=== PATIENT | female | born 1955 | race Caucasian/White ===

== ENCOUNTER 2017-01-13 11:21 | Emergency (ER) | payer BC, MEDICAID ==
[2017-01-13 11:38] VITALS: BP 135/68; PULSE 76; TEMP 97; O2SAT 97
[2017-01-13 11:39] VITALS: BMI 21.7
[2017-01-13] MEDS ORDERED: Sodium Chloride 0.9% 1,000 ML IV STA (12:15)
[2017-01-13] MEDS ORDERED: Insulin Regular 100 units/ml IV STA (12:15)
[2017-01-13] MEDS ORDERED: Insulin Regular 100 units/ml ONE (12:58)
[2017-01-13 13:03] LABS: VENOUS BLOOD GAS BASE EXCESS 2.8 mmol/L (0.0-2.0); VENOUS BLOOD GAS PCO2 47 mmHg (40-60); VENOUS BLOOD PH 7.39 (7.32-7.43)
[2017-01-13 13:11] LABS: BASO # 0.1 K/uL (0.0-0.2); BASO % 0.7 % (0.0-2.0); EOS # 0.2 K/uL (0.0-0.7); EOS % 2.7 % (0.0-4.0); HEMATOCRIT 35.7 % (34.0-47.0); LYMPH # 2.4 K/uL (1.0-4.3); MEAN CELL VOLUME 90.8 fl (81.0-99.0); MEAN CORPUSCULAR HEMOGLOBIN 30.7 pg (27.0-31.0); MEAN CORPUSCULAR HGB CONC 33.8 g/dL (33.0-37.0); MEAN PLATELET VOLUME 8.6 fl (7.2-11.7); MONO # 0.5 K/uL (0.0-0.8); NEUT # 4.8 K/uL (1.8-7.0); NEUT % 60.6 % (50.0-75.0); NRBC % 0.1 % (0.0-0.0); RED CELL DISTRIBUTION WIDTH 14.1 % (11.5-14.5)
[2017-01-13 13:22] LABS: GFR AFRICAN-AMERICAN > 60
[2017-01-13] MEDS ORDERED: TDAP Vaccine 0.5 mL Syr IM ONE (13:28)
--- NOTE | 2017-01-13 13:30 | ED PDOC ---
HPI: General Adult Time Seen by Provider: 01/13/17 12:01 Chief Complaint (Nursing): Abnormal Skin Integrity Chief Complaint (Provider): FOOT WOUND History Per: Patient (61 Y/O DIABETIC WITH RIGHT TOE WOUND NONHEALING X 1 WEEK. STATES SHE IS INSULIN DEPENDENT AND HAS NOTED ONGOING NUMBNESS. FOLLOWS WITH DR. SEGOVIA AND WAS STARTED ON KEFLEX 3 DAYS WITH NO IMPROVEMENT OF ULCER. DENIES ANY INJURY.) Past Medical History Reviewed: Historical Data, Nursing Documentation, Vital Signs Vital Signs: Last Vital Signs Temp 97 F L 01/13/17 11:37 Pulse 76 01/13/17 11:37 Resp BP 135/68 01/13/17 11:37 Pulse Ox 97 01/13/17 11:37 - Medical History PMH: Diabetes, HTN, Hypercholesterolemia - Surgical History Surgical History: Carotid Endarterectomy - Family History Family History: States: Unknown Family Hx - Immunization History Hx Tetanus Toxoid Vaccination: No Hx Influenza Vaccination: Yes Hx Pneumococcal Vaccination: No - Home Medications Home Medications: Ambulatory Orders Medication Instructions Recorded Aspirin 81 mg PO DAILY 08/01/13 Lipitor 20 mg PO HS 08/01/13 MetFORMIN 1,000 mg PO BID 08/01/13 novolog Mix 70/30 08/01/13 Non-Formulary 1 ea TOP DAILY #1 01/13/17 Silver Sulfadiazine 1% 50 gm 0.5 ea EXT BID #1 jar 01/13/17 [Silvadene 1% 50 gm] - Allergies Allergies/Adverse Reactions: Allergies Allergy/AdvReac Type Severity Reaction Status Date / Time No Known Allergies Allergy Verified 04/07/14 13:31 Review of Systems ROS Statement: Except As Marked, All Systems Reviewed And Found Negative Physical Exam - Reviewed Nursing Documentation Reviewed: Yes Vital Signs Reviewed: Yes - Physical Exam Appears: Positive for: Well, Non-toxic, No Acute Distress Head Exam: Positive for: ATRAUMATIC, NORMAL INSPECTION, NORMOCEPHALIC Skin: Positive for: Normal Color, Warm, DRY Eye Exam: Positive for: EOMI, Normal appearance, PERRL ENT: Positive for: Normal ENT Inspection Neck: Positive for: Normal, Painless ROM Cardiovascular/Chest: Positive for: Regular Rate, Rhythm Respiratory: Positive for: CNT, Normal Breath Sounds Gastrointestinal/Abdominal: Positive for: Normal Exam, Bowel Sounds, Soft Back: Positive for: Normal Inspection Extremity: Positive for: Normal ROM, Other (TOE RIGHT NONERYTHEMATOUS/MILD EDEMA NOTED (+) SUPERFICIAL ULCER NOTED. NO DISCHARGE.) Neurologic/Psych: Positive for: Alert, Oriented - Laboratory Results Result Diagrams: 01/13/17 12:55 - ECG O2 Sat by Pulse Oximetry: 97 - Progress ED Course And Treament: ACCUCHECK 332 NS 1 LITER WIDE OPEN INSULIN REGULAR 4 UNITS IV XRY OF FOOT: NAD SEEN BY PODIATRY. WOUND CARE/DEBRIDEMENT BY RESIDENT. WILL F/U WITH DR. LÓPEZ. ADVISED TO FINISH KEFLEX AND START SILVADENE APPLICATION TO WOUND. Disposition - Clinical Impression Clinical Impression: Open toe wound - Patient ED Disposition Is Patient to be Admitted: No - Disposition Referrals: Augusto López DPM [Staff Provider] - Disposition: Routine/Home Disposition Time: 13:30 Condition: FAIR Additional Instructions: CHELSEA AKHIL SONIA CON ANT [address] [facility] [phone] Prescriptions: Non-Formulary 1 ea TOP DAILY #1 Silver Sulfadiazine 1% 50 gm [Silvadene 1% 50 gm] 0.5 ea EXT BID #1 jar Instructions: Acute Wound Care (ED) Print Language: FRISIAN
[2017-01-13 13:39] LABS: CHLORIDE 103 mmol/L (98-107); POTASSIUM 3.8 MMOL/L (3.6-5.0); SODIUM 137 mmol/l (132-148)
[2017-01-13 13:41] LABS: AST/SGOT 25 U/L (14-36); BILIRUBIN,TOTAL 0.6 mg/dl (0.2-1.3); CARBON DIOXIDE 26 mmol/L (22-30)
[2017-01-13 13:42] LABS: ALB/GLOB RATIO 1.4 (1.0-2.1); ALKALINE PHOSPHATASE 66 U/L (38-126); ALT/SGPT 25 U/L (9-52); BLOOD UREA NITROGEN 19 mg/dl (7-17); CALCIUM 9.3 mg/dL (8.4-10.2); GLUCOSE,RANDOM 233 mg/dL (65-105); TOTAL PROTEIN 6.3 G/DL (6.3-8.2)
--- NOTE | 2017-01-13 15:27 | RAD ---
PROCEDURE: Radiographs of the right great toe. TECHNIQUE:: AP radiograph of the right foot, with oblique and lateral view of the right great toe. COMPARISON: None. FINDINGS: BONES: Normal. No fracture. JOINTS: Normal. SOFT TISSUES: Normal. OTHER FINDINGS: None. IMPRESSION: Normal right great toe radiographs.
--- NOTE | 2017-01-13 20:26 | CP.PCM.CON ---
History of Present Illness - History of Present Illness History of Present Illness: 61 year old female PMHx DM, HTN, hypercholesterolemia, asthma seen in ED at the request of podiatry consult. Patient states that she has had a blister on the bottom of her right great toe for the past week. Patient noticed fluid expressed from the blister on Thursday. Patient went to see her primary care doctor on Thursday who prescribed her Keflex for possible infection. Patient states that in addition to taking the pills by mouth, patient also breaks open the pills and applies the powder to her wound, as was commonly done from her [place] origin. Patient states the open wound hurts, especially when walking. Patient denies N/V/F/D/C/SOB/CP. No other pedal complaints at this time. PMH: DM, HTN, hypercholesterolemia, asthma PSH: carotid endarterectomy FH: unknown SH: unknown Meds: see meds list All: NKDA Review of Systems - Review of Systems All systems: reviewed and no additional remarkable complaints except (as per HPI ) Past Patient History - Past Social History Smoking Status: Former Smoker - CARDIAC Hx Hypercholesterolemia: Yes Hx Hypertension: Yes - ENDOCRINE/METABOLIC Hx Diabetes Mellitus Type 1: Yes - MUSCULOSKELETAL/RHEUMATOLOGICAL Hx Falls: Yes - PSYCHIATRIC Hx Substance Use: No - SURGICAL HISTORY Hx Carotid Endarterectomy: Yes - ANESTHESIA Hx Anesthesia: Yes Hx Anesthesia Reactions: No Hx Malignant Hyperthermia: No Meds Home Medications: Home Medication List Medication Instructions Recorded Confirmed Type Ibuprofen [Motrin] 600 mg PO Q8 PRN #15 tab 01/13/17 Rx Non-Formulary 1 ea TOP DAILY #1 01/13/17 Rx Silver Sulfadiazine 1% 50 gm 0.5 ea EXT BID #1 jar 01/13/17 Rx [Silvadene 1% 50 gm] Allergies/Adverse Reactions: Allergies Allergy/AdvReac Type Severity Reaction Status Date / Time No Known Allergies Allergy Verified 04/07/14 13:31 Physical Exam - Constitutional Appears: Well, Non-toxic, No Acute Distress - Extremities Exam Additional comments: RLE focused physical exam: Vasc: DP and PT pulses palpable 2/4. CFT <3 seconds to all digits x10. No edema noted. Neuro: Gross sensation intact. Derm: 1.8 x 2 cm superficial ulceration noted to plantar sulcus of 1st MPJ. Ulceration has a good granular base with mild erythema periwound. Mild serosanguinous drainage noted. No purulence, malodor, flucutance, probe to bone noted. No clinical signs of infection noted. Ortho: pain on palpation noted to ulceration. Pain upon ROM 1st MPJ - Neurological Exam Neurological exam: Alert, Oriented x3 - Psychiatric Exam Psychiatric exam: Normal Affect, Normal Mood Results - Vital Signs Recent Vital Signs: Last Vital Signs Temp 97 F L 01/13/17 11:37 Pulse 76 01/13/17 11:37 Resp BP 135/68 01/13/17 11:37 Pulse Ox 97 01/13/17 13:30 - Labs Result Diagrams: 01/13/17 12:55 01/13/17 12:55 Labs: Laboratory Results - last 24 hr 01/13/17 01/13/17 01/13/17 12:15 12:55 12:55 WBC 8.0 RBC 3.93 Hgb 12.1 Hct 35.7 MCV 90.8 MCH 30.7 MCHC 33.8 RDW 14.1 Plt Count 256 MPV 8.6 Neut % (Auto) 60.6 Lymph % (Auto) 30.0 Evangeline % (Auto) 6.0 Eos % (Auto) 2.7 Baso % (Auto) 0.7 Neut # 4.8 Lymph # 2.4 Evangeline # 0.5 Eos # 0.2 Baso # 0.1 pO2 35 VBG pH 7.39 VBG pCO2 47 VBG HCO3 26.3 VBG Total CO2 29.9 H VBG O2 Sat (Calc) 69.4 H VBG Base Excess 2.8 H VBG Potassium 3.8 Sodium 137.0 137 Chloride 103.0 103 Glucose 246 H Lactate 1.1 FiO2 21.0 Potassium 3.8 Carbon Dioxide 26 Anion Gap 11 BUN 19 H Creatinine 0.5 L Est GFR ( Amer) > 60 Est GFR (Non-Af Amer) > 60 Random Glucose 233 H Calcium 9.3 Total Bilirubin 0.6 AST 25 ALT 25 Alkaline Phosphatase 66 Total Protein 6.3 Albumin 3.7 Globulin 2.7 Albumin/Globulin Ratio 1.4 Venous Blood Potassium 3.8 Assessment & Plan - Assessment and Plan (Free Text) Assessment: 61 year old female PMH DM, HTN, hypercholesterolemia with superficial ulceration plantar right hallux Plan: Patient examined and evaluated at bedside Discussed with attending, Dr. Montenegro Chart, labs, vitals reviewed = afebrile, WBC WNL @ 8.0 R Foot XR reviewed = negative for OM, no ST emphysema noted Bacitracin applied to ulceration and dressed with DSD Advised patient to continue PO keflex from her PCP Recommend Silvadene cream. Apply thin later to affected area Patient is to follow up with Dr. Urbina in office next week Stable from podiatry standpoint Thank you for this consult, please reconsult podiatry again as needed - Date & Time Date: 01/13/17 Time: 13:00
== END 2017-01-13 14:34 | disposition home or self-care (01) ==
LOC: H.ER 11:21
DX: E11.621 Type 2 diabetes mellitus with foot ulcer (principal); E78.00 Pure hypercholesterolemia, unspecified; I10 Essential (primary) hypertension; Z79.4 Long term (current) use of insulin; Z79.82 Long term (current) use of aspirin
CPT/HCPCS: 73660; 80053; 82803; 82948; 85025; 96361; 96374; 96375; 99282; J7040

== ENCOUNTER 2017-05-28 17:19 | Emergency (ER) | payer OTHER, BC, MEDICAID ==
[2017-05-28 17:19] VITALS: BMI 21.7
[2017-05-28 17:27] VITALS: BP 146/71; PULSE 73; RESP 16; TEMP 98; O2SAT 100
--- NOTE | 2017-05-28 17:44 | ED PDOC ---
Arrival/HPI - General Chief Complaint: Hip Pain Time Seen by Provider: 05/28/17 17:27 Past Medical History - Cardiac Hx Hypertension: Yes - Endocrine/Metabolic Hx Diabetes Mellitus Type 1: Yes - Musculoskeletal/Rheumatological Hx Falls: Yes - Psychiatric Hx Substance Use: No - Surgical History Hx Carotid Endarterectomy: Yes - Anesthesia Hx Anesthesia: Yes Hx Anesthesia Reactions: No Hx Malignant Hyperthermia: No - Suicidal Assessment Feels Threatened In Home Enviroment: No Family/Social History Smoking Status: Former Smoker Hx Alcohol Use: No Hx Substance Use: No Allergies/Home Meds Allergies/Adverse Reactions: Allergies No Known Allergies Allergy (Verified 05/28/17 17:21) Home Medications: Home Meds Medication Instructions Recorded Confirmed Aspirin 81 mg PO DAILY 08/01/13 04/07/14 Lipitor 20 mg PO HS 08/01/13 04/07/14 MetFORMIN 1,000 mg PO BID 08/01/13 04/07/14 novolog Mix 70/30 08/01/13 04/07/14 Physical Exam Vital Signs Temp Pulse Resp BP Pulse Ox 05/28/17 17:21 98.0 F 73 16 146/71 100 Disposition/Present on Arrival - Present on Arrival History of DVT/PE: No History of Uncontrolled Diabetes: Yes Urinary Catheter: No History Surgical Site Infection Following: None - Disposition
--- NOTE | 2017-05-28 17:46 | ED PDOC ---
HPI: General Adult Time Seen by Provider: 05/28/17 17:27 Chief Complaint (Nursing): Hip Pain Chief Complaint (Provider): fall History Per: Patient Additional Complaint(s): 62-year-old female presents to emergency department with lower back pain, right hip pain, bilateral knee pain, neck pain and headache status post accidental fall. 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 Patient hit her forehead against the ground but denies loss of consciousness. She called ambulance and was brought here. The patient has not tried to walk or bear weight since time of injury. She denies any dizziness , vision changes or vomiting but does have mild nausea. Past Medical History Reviewed: Historical Data, Nursing Documentation, Vital Signs Vital Signs: Last Vital Signs Temp 98.0 F 05/28/17 17:21 Pulse 73 05/28/17 17:21 Resp 16 05/28/17 17:21 BP 146/71 05/28/17 17:21 Pulse Ox 100 05/28/17 17:46 - Medical History PMH: Diabetes, HTN, Hypercholesterolemia - Surgical History Other surgeries: right hip replacement - Family History Family History: States: No Known Family Hx - Living Arrangements Living Arrangements: With Family - Social History Current smoker - smoking cessation education provided: No Alcohol: None Drugs: Denies - Home Medications Home Medications: Ambulatory Orders Medication Instructions Recorded Aspirin 81 mg PO DAILY 08/01/13 Lipitor 20 mg PO HS 08/01/13 MetFORMIN 1,000 mg PO BID 08/01/13 novolog Mix 70/30 08/01/13 Ibuprofen [Motrin] 600 mg PO Q8 PRN #15 tab 01/13/17 Non-Formulary 1 ea TOP DAILY #1 01/13/17 Silver Sulfadiazine 1% 50 gm 0.5 ea EXT BID #1 jar 01/13/17 [Silvadene 1% 50 gm] Cyclobenzaprine [Cyclobenzaprine 10 mg PO TID PRN #20 tab 05/28/17 HCl] Naproxen [Naprosyn] 500 mg PO BID #20 tab 05/28/17 - Allergies Allergies/Adverse Reactions: Allergies Allergy/AdvReac Type Severity Reaction Status Date / Time No Known Allergies Allergy Verified 05/28/17 17:21 Review of Systems ROS Statement: Except As Marked, All Systems Reviewed And Found Negative Gastrointestinal: Positive for: Nausea Musculoskeletal: Positive for: Other (neck pain, back pain, bilateral knee pain , right hip pain s/p fall) Neurological: Positive for: Other (head injury with no LOC s/p fall). Negative for: Dizziness Physical Exam - Reviewed Nursing Documentation Reviewed: Yes Vital Signs Reviewed: Yes - Physical Exam Appears: Positive for: Well, Non-toxic, No Acute Distress Head Exam: Positive for: ATRAUMATIC, NORMAL INSPECTION, NORMOCEPHALIC Skin: Positive for: Normal Color. Negative for: Rash Eye Exam: Positive for: Normal appearance Neck: Positive for: Pain On Movement Of Neck (Tenderness to bilateral paraspinal regions with no midline tenderness or step-off) Cardiovascular/Chest: Positive for: Regular Rate, Rhythm, Chest Non Tender Respiratory: Positive for: Normal Breath Sounds Gastrointestinal/Abdominal: Positive for: Soft. Negative for: Tenderness, Distended, Guarding Back: Positive for: Vertebral Tenderness (Moderate tenderness across lower lumbar region, no step off) Extremity: Positive for: Other (Tenderness and swelling bilateral knees with full range of motion of same, mild tenderness lateral aspect of right hip with full range of motion of right lower extremity, no obvious bony deformity noted) Neurologic/Psych: Positive for: Alert, Oriented - ECG O2 Sat by Pulse Oximetry: 100 Pulse Ox Interpretation: Normal - Other Rad CT head X-Ray: Read By Radiologist X-Ray Interpretation: see below Pelvis and right hip x-rays X-Ray: Interpreted by Me, Viewed By Me X-Ray Interpretation: no fx, no dis, prothesis grossly aligned Bilateral knee x-rays X-Ray: Interpreted by Me, Viewed By Me X-Ray Interpretation: no fx, no dis LS Spine X-ray X-Ray: Interpreted by Me, Viewed By Me X-Ray Interpretation: no fx, no dis Cervical spine x-ray X-Ray: Interpreted by Me, Viewed By Me X-Ray Interpretation: no fx, no dis Medical Decision Making Medical Decision Makin-year-old female presents for evaluation status post fall. Plan: PO tramadol PO flexeril CT head X-rays both knees, pelvis, right hip, cervical and lumbar spines CT head: IMPRESSION: 1. There is subtle age-related diffuse cerebral and cerebellar volume loss and chronic microvascular ischemic disease. 2. No acute intracranial pathology. Patient feels better after medications administered. Patient is aware of all diagnostic testing results, all questions answered. Patient is noted to be ambulatory with steady gait in ED. Prescriptions provided for Naprosyn and Flexeril. Patient was referred to orthopedist for follow-up. Disposition - Clinical Impression Clinical Impression: Head injury, closed, without LOC, Cervical sprain, Back strain, Contusion, hip , Knee contusion, Accidental fall - Patient ED Disposition Is Patient to be Admitted: No Counseled Patient/Family Regarding: Studies Performed, Diagnosis, Need For Followup, Rx Given - Disposition Referrals: Rudy Khan III, MD [Staff Provider] - Disposition: Routine/Home Disposition Time: 19:31 Condition: STABLE Additional Instructions: Take prescription medications as directed as needed for pain. Follow up with primary doctor or with orthopedist in 2-3 days. Prescriptions: Cyclobenzaprine [Cyclobenzaprine HCl] 10 mg PO TID PRN #20 tab PRN Reason: Muscle Spasm Naproxen [Naprosyn] 500 mg PO BID #20 tab Instructions: Cervical Strain (GEN), Back Pain (ED), Hip Sprain (ED), Knee Sprain (ED), Contusion in Adults (ED), Head Injury (ED) Forms: [email or web address] (Portuguese), [email or web address] (Bengali), [facility] ED School /Work Excuse Print Language: CITIZEN OF [place]
--- NOTE | 2017-05-29 07:28 | CT ---
PROCEDURE: CT HEAD WITHOUT CONTRAST. HISTORY: trauma COMPARISON: None available. TECHNIQUE: Axial computed tomography images were obtained through the head/brain without intravenous contrast. Radiation dose: Total exam DLP = 796.62 mGy-cm. This CT exam was performed using one or more of the following dose reduction techniques: Automated exposure control, adjustment of the mA and/or kV according to patient size, and/or use of iterative reconstruction technique. FINDINGS: HEMORRHAGE: No intracranial hemorrhage. BRAIN: No mass effect or edema. Normal pool-white matter differentiation and density are appreciated throughout the cerebrum and cerebellum with the brainstem appearing unremarkable as well. There is no suspicious extra-axial fluid collection and the midline brain anatomy appears diffusely unremarkable. There is limited expansion of the ventricular sulcal and cisternal spaces compatible with marginal diffuse cerebral atrophy. VENTRICLES: Unremarkable. No hydrocephalus. CALVARIUM: No destructive bony lesion or displaced fracture identified including through the skullbase. PARANASAL SINUSES: Unremarkable as visualized. No significant inflammatory changes. MASTOID AIR CELLS: Unremarkable as visualized. No inflammatory changes. OTHER FINDINGS: None. IMPRESSION: Unremarkable unenhanced head CT. Minimal age related neuro degenerative changes are identified. Concordant preliminary report from [facility], 05/28/2017.
--- NOTE | 2017-05-29 11:27 | RAD ---
PROCEDURE: Cervical Spine Radiographs. HISTORY: Pain. COMPARISON: None. FINDINGS: BONES: No acute compression fractures no retropulsed fragments. Vertebral bodies exhibit normal stature. . There is mild straightening of the normal cervical lordosis. . . DISC SPACES: Multilevel degenerative spondylosis. Changes include varying degrees of disc space narrowing, endplate eburnation and anterolateral as well as posterior osteophyte formation former larger than latter. Mild hypertrophic uncovertebral facet joints. SOFT TISSUES: Normal. No prevertebral soft tissue swelling. OTHER FINDINGS: None. IMPRESSION: No at obvious evidence of acute displaced fracture nor dislocation. If symptoms persist consider follow-up CT scan or MRI. . Mild multilevel degenerative spondylosis as described. .
--- NOTE | 2017-05-29 11:28 | RAD ---
PROCEDURE: Bilateral Knee Radiographs. HISTORY: trauma COMPARISON: None. FINDINGS: BONES: Right Knee: Normal. No fracture. Left Knee: Normal. No fracture. JOINTS: Right Knee: Normal. No osteoarthritis. Left knee: Normal. No osteoarthritis. SOFT TISSUES: Right Knee: Normal. Left Knee: Normal. JOINT EFFUSION: Right Knee: None. Left Knee: Suspect trace suprapatellar joint effusion. OTHER FINDINGS: None. IMPRESSION: No evidence of acute displaced fracture nor dislocation. Suspect trace left-sided suprapatellar joint effusion.
--- NOTE | 2017-05-29 11:31 | RAD ---
PROCEDURE: Radiographs of the Lumbar Spine. HISTORY: trauma COMPARISON: No prior. FINDINGS: BONES: Minor chronic anterior stature loss T11 segment. Remaining vertebral bodies otherwise exhibit normal stature. DISC SPACES: Lumbar disc space heights are relatively maintained. Small marginal at anterior osteophyte formation seen at several levels and most pronounced of which is located at the T10-T11 and T11-T12 levels. Facet joints slightly hypertrophic the L5-S1 through the L3-L4 levels in decreasing order of severity OTHER FINDINGS: There is a large amount of stool seen throughout the colon consistent with fecal retention/ constipation. IMPRESSION: No evidence of acute compression fractures nor retropulsed fragments. Minor chronic anterior stature loss T11 segment. Minor multilevel degenerative spondylosis
--- NOTE | 2017-05-29 12:00 | RAD ---
PROCEDURE: Pelvis right hip dated 05/28/2017 HISTORY: Trauma COMPARISON: No prior studies available for comparison TECHNIQUE: Frontal view of the pelvis and frontal/ frogleg lateral views of the right hip performed FINDINGS: Current study reveals right-sided total hip replacement. The hardware appears no evidence with no evidence of dislocation. No evidence of loosening or infection. . Left femoral head is appropriately located within the left acetabulum. Pelvic ring appears intact. Probable calcified bilateral buttock injection granulomata IMPRESSION: Right total hip replacement which is intact and appropriately located. . No evidence of hardware failure. No evidence of acute displaced fracture nor dislocation
== END 2017-05-28 20:32 | disposition home or self-care (01) ==
LOC: H.ER 17:19
DX: S09.90XA Unspecified injury of head, initial encounter (principal); S13.4XXA Sprain of ligaments of cervical spine, initial encounter; S39.012A Strain of muscle, fascia and tendon of lower back, initial encounter; S70.01XA Contusion of right hip, initial encounter; S80.00XA Contusion of unspecified knee, initial encounter; W01.198A Fall on same level from slipping, tripping and stumbling with subsequent striking against other object, initial encounter; Y93.E5 Activity, floor mopping and cleaning; Y92.9 Unspecified place or not applicable; Y99.0 Civilian activity done for income or pay

== ENCOUNTER 2017-08-06 12:06 | Emergency (ER) | payer BC, MEDICAID ==
[2017-08-06 12:07] VITALS: BMI 21.7
[2017-08-06 12:38] VITALS: RESP 18
--- NOTE | 2017-08-06 12:50 | ED PDOC ---
Lower Extremity Pain/Injury Time Seen by Provider: 08/06/17 12:42 Chief Complaint (Nursing): Lower Extremity Problem/Injury Chief Complaint (Provider): toe infection History Per: Patient, Family (Patient's daughter at bedside speaks Macedonian and is translating for patient in Swedish) Additional Complaint(s): 62 year with history of diabetes presents with pain and swelling to left second toe. Patient injured foot last week and had small open wound distal aspect of toe. She was seen yesterday by primary doctor and started on Keflex and was told to come to emergency room for further evaluation. Patient denies fever or chills. She has mild pain to the affected area. PMD: Dr. Corey Past Medical History Reviewed: Historical Data, Nursing Documentation, Vital Signs Vital Signs: Last Vital Signs Temp 98.1 F 08/06/17 12:35 Pulse 94 H 08/06/17 12:35 Resp 18 08/06/17 12:35 BP 143/67 08/06/17 12:35 Pulse Ox 96 08/06/17 12:35 - Medical History PMH: Diabetes, HTN, Hypercholesterolemia - Surgical History Surgical History: Carotid Endarterectomy - Family History Family History: States: No Known Family Hx - Living Arrangements Living Arrangements: With Family - Social History Current smoker - smoking cessation education provided: No Alcohol: None Drugs: Denies - Home Medications Home Medications: Ambulatory Orders Medication Instructions Recorded Aspirin 81 mg PO DAILY 08/01/13 Lipitor 20 mg PO HS 08/01/13 MetFORMIN 1,000 mg PO BID 08/01/13 novolog Mix 70/30 08/01/13 Ibuprofen [Motrin] 600 mg PO Q8 PRN #15 tab 01/13/17 Non-Formulary 1 ea TOP DAILY #1 01/13/17 Silver Sulfadiazine 1% 50 gm 0.5 ea EXT BID #1 jar 01/13/17 [Silvadene 1% 50 gm] Cyclobenzaprine [Cyclobenzaprine 10 mg PO TID PRN #20 tab 05/28/17 HCl] Naproxen [Naprosyn] 500 mg PO BID #20 tab 05/28/17 Amoxicillin/Clavulanate [Augmentin 1 tab PO BID #14 tab 08/06/17 875 MG-125 MG] Povidone-Iodine [Betadine] 88.7 ml TP DAILY #1 bottle 08/06/17 Silver Sulfadiazine 1% 20 gm 1 ea TOP BID #1 tube 08/06/17 [Silvadene] - Allergies Allergies/Adverse Reactions: Allergies Allergy/AdvReac Type Severity Reaction Status Date / Time No Known Allergies Allergy Verified 05/28/17 17:21 Wells Criteria for PE - Wells Criteria for Pulmonary Embolism Clinical Signs and Symptoms of DVT: No P.E is #1 Diagnosis, or Equally Likely: No Heart Rate >100: No Immobilization at least 3 days;Surgery previous 4 weeks: No Previous, objectively diagnosed PE or DVT: No Hemoptysis: No Malignancy w/treatment within 6 months, or palliative: No Total Score: 0 Review of Systems ROS Statement: Except As Marked, All Systems Reviewed And Found Negative Constitutional: Negative for: Fever Musculoskeletal: Positive for: Other (left 2nd toe infection) Physical Exam - Reviewed Nursing Documentation Reviewed: Yes Vital Signs Reviewed: Yes - Physical Exam Appears: Positive for: Well, Non-toxic, No Acute Distress Skin: Negative for: Rash Eye Exam: Positive for: Normal appearance Cardiovascular/Chest: Positive for: Regular Rate, Rhythm Respiratory: Positive for: Normal Breath Sounds Extremity: Positive for: Other (superficial wound noted to distal aspect of left 2nd toe, diffuse swelling and erythema noted to same toe, decreased range of motion, normal cap refill) Neurologic/Psych: Positive for: Alert, Oriented - Laboratory Results Result Diagrams: 08/06/17 14:57 08/06/17 14:57 - ECG O2 Sat by Pulse Oximetry: 96 Pulse Ox Interpretation: Normal - Other Rad Left foot x-ray X-Ray: Interpreted by Me, Viewed By Me X-Ray Interpretation: no fx, no dis, STS 2nd digit Medical Decision Making Medical Decision Makin-year-old female with left second toe infection Fingerstick is 324 Plan: CBC CMP Wound culture Blood culture IVF 6 units insulin IV Podiatry consult - case was d/w Dr. Castillo, podiatry resident who states to start IV vanco and zosyn and he will come down and see patient in ED. 3:38 pm: Dr. Castillo at bedside. He states patient is stable for discharge with rx augmentin, betadine and silvadene cream. Resident apply dressing and instructed patient on how to change dressing daily at home. Patient was instructed to call podiatry clinic tomorrow to arrange for follow-up visit for next Thursday. Repeat glucose: 217 Disposition - Clinical Impression Clinical Impression: Toe infection, Cellulitis, toe - Patient ED Disposition Is Patient to be Admitted: No Counseled Patient/Family Regarding: Studies Performed, Diagnosis, Need For Followup, Rx Given - Disposition Referrals: Podiatry Clinic [Outside] Disposition: Routine/Home Disposition Time: 15:40 Condition: STABLE Additional Instructions: Change bandage at home daily, area with Betadine, apply Silvadene cream and be apply bandage. Take antibiotics as directed. Call podiatry clinic tomorrow to arrange for follow-up visit for next 08/14/17. Prescriptions: Amoxicillin/Clavulanate [Augmentin 875 MG-125 MG] 1 tab PO BID #14 tab Povidone-Iodine [Betadine] 88.7 ml TP DAILY #1 bottle Silver Sulfadiazine 1% 20 gm [Silvadene] 1 ea TOP BID #1 tube Instructions: Cellulitis (Skin Infection), Adult (DC), Wound Infection Forms: [employer] (Swedish) Print Language: ALBANIAN Results - Lab Results Lab Results: 08/06/17 08/06/17 08/06/17 14:57 14:57 12:43 WBC 10.7 RBC 3.83 Hgb 11.8 L Hct 35.7 MCV 93.3 D MCH 30.8 MCHC 33.0 RDW 13.7 Plt Count 261 MPV 9.2 Neut % (Auto) 67.9 Lymph % (Auto) 24.2 Trinity % (Auto) 5.6 Eos % (Auto) 1.7 Baso % (Auto) 0.6 Neut # (Auto) 7.2 H Lymph # (Auto) 2.6 Trinity # (Auto) 0.6 Eos # (Auto) 0.2 Baso # (Auto) 0.1 Sodium 138 Potassium 4.2 Chloride 98 Carbon Dioxide 26 Anion Gap 18 BUN 17 Creatinine 0.7 Est GFR ( Amer) > 60 Est GFR (Non-Af Amer) > 60 POC Glucose (mg/dL) 324 H Random Glucose 343 H Calcium 8.9 Total Bilirubin 0.6 AST 21 ALT 27 Alkaline Phosphatase 92 Total Protein 6.9 Albumin 3.9 Globulin 3.0 Albumin/Globulin Ratio 1.3
[2017-08-06] MEDS ORDERED: Clindamycin 150 mg/mL Inj IVPB STA (13:25)
[2017-08-06] MEDS ORDERED: Insulin Regular 100 units/ml IV STA (13:25)
[2017-08-06] MEDS ORDERED: Sodium Chloride 0.9% 1,000 ML IV STA (13:26)
[2017-08-06] MEDS ORDERED: Piperacillin/Tazobact 3.375 gm Inj IVPB STA (13:27)
[2017-08-06] MEDS ORDERED: Piperacillin/Tazobact 3.375 GM in Sodium Chloride 0.9% 100 ML IVPB ONE (13:45)
[2017-08-06] MEDS ORDERED: Insulin Regular 100 units/ml ONE (14:14)
[2017-08-06] MEDS ORDERED: Piperacillin/Tazobact 3.375 gm Inj IVPB ONE (14:15)
[2017-08-06 15:16] LABS: BASO # 0.1 K/uL (0.0-0.2); BASO % 0.6 % (0.0-2.0); EOS # 0.2 K/uL (0.0-0.7); EOS % 1.7 % (0.0-4.0); HEMOGLOBIN 11.8 g/dL (12.0-16.0); LYMPH # 2.6 K/uL (1.0-4.3); LYMPH % 24.2 % (20.0-40.0); MEAN CELL VOLUME 93.3 fl (81.0-99.0); MEAN CORPUSCULAR HEMOGLOBIN 30.8 pg (27.0-31.0); MEAN PLATELET VOLUME 9.2 fl (7.2-11.7); MONO # 0.6 K/uL (0.0-0.8); MONO % 5.6 % (0.0-10.0); NEUT # 7.2 K/uL (1.8-7.0); NEUT % 67.9 % (50.0-75.0); NRBC % 0.1 % (0.0-0.0); RBC 3.83 Mil/uL (3.80-5.20); RED CELL DISTRIBUTION WIDTH 13.7 % (11.5-14.5); WHITE BLOOD COUNT 10.7 K/uL (4.8-10.8)
--- NOTE | 2017-08-06 15:23 | RAD ---
PROCEDURE: Left Foot Radiographs. HISTORY: Left foot pain COMPARISON: None. FINDINGS: BONES: Normal. No fracture. JOINTS: Normal. SOFT TISSUES: Soft tissue swelling left 2nd digit. OTHER FINDINGS: None. IMPRESSION: Soft tissue swelling without acute articular or osseous abnormality.
[2017-08-06 15:27] LABS: ALB/GLOB RATIO 1.3 (1.0-2.1); ALBUMIN 3.9 g/dL (3.5-5.0); ALT/SGPT 27 U/L (9-52); AST/SGOT 21 U/L (14-36); BLOOD UREA NITROGEN 17 mg/dl (7-17); CALCIUM 8.9 mg/dL (8.4-10.2); GFR AFRICAN-AMERICAN > 60; GFR NON-AFRICAN AMERICAN > 60
--- NOTE | 2017-08-06 15:59 | CP.PCM.CON ---
History of Present Illness - History of Present Illness History of Present Illness: Consult note - Dr. Munoz 62 year old Hebrew speaking female patient with PMHx of DM, HTN, hyperlipidemia , stroke, arthritis was seen and evaluated at bedside with her daughter complaining of left foot pain, swelling and redness. Conversation with the patient is translated by her daughter. Patient reports that about 2 months ago she tripped and fell; since then she has been having swelling to her left foot. Patient reports that about a week ago, she stubbed her toe and had a small opening on the distal aspect of the 2nd toe. Patient reports that since then, her foot got little red and swollen. Patient reports that she was seen by her PCP in the mean time who gave her the prescription for Keflex which she has been taking for couple of days. Patient reports that she has been wearing regular shoes and has been washing it with water daily. Patient denies of any other prior treatment. Patient reports her pain as about 6-7/10 on VAS today. Patient reports that she has burning, numbness and tingling in her feet. Patient denies of any recent F/N/V/C/SOB/CP/headache/diarrhea/calf pain. Patient denies of any other pedal complains at this time. PMHx: DM, HTN, hyperlipidemia, stroke, arthritis PSHx: Carotid Endarterectomy, Pelvic surgery Allergies: N.K.D.A SHx: Denies smoking/previous smoker, denies EtOH or illicit drug usage Review of Systems - Constitutional Constitutional: As Per HPI Past Patient History - Past Social History Alcohol: None Drugs: Denies - CARDIAC Hx Hypercholesterolemia: Yes Hx Hypertension: Yes - ENDOCRINE/METABOLIC Hx Diabetes Mellitus Type 1: Yes - MUSCULOSKELETAL/RHEUMATOLOGICAL Hx Arthritis: Yes Hx Falls: Yes - PSYCHIATRIC Hx Substance Use: No - SURGICAL HISTORY Hx Carotid Endarterectomy: Yes - ANESTHESIA Hx Anesthesia: Yes Hx Anesthesia Reactions: No Hx Malignant Hyperthermia: No Meds Home Medications: Home Medication List Medication Instructions Recorded Confirmed Type Amoxicillin/Clavulanate [Augmentin 1 tab PO BID #14 tab 08/06/17 Rx 875 MG-125 MG] Povidone-Iodine [Betadine] 88.7 ml TP DAILY #1 bottle 08/06/17 Rx Silver Sulfadiazine 1% 20 gm 1 ea TOP BID #1 tube 08/06/17 Rx [Silvadene] Allergies/Adverse Reactions: Allergies Allergy/AdvReac Type Severity Reaction Status Date / Time No Known Allergies Allergy Verified 05/28/17 17:21 Physical Exam - Constitutional Appears: Well, Non-toxic, No Acute Distress - Extremities Exam Additional comments: Bilateral LE focused exam: VASC: DP/PT pulses are palpable 2/4 B/L. Cap refill time: < 3 seconds to all digits. Skin temperature warm to warm from proximal to distal. mild non-pitting edema noted at the distal aspect of the foot on the left DERM: wound measuring approx. 0.5cm x 0.3cm x <0.1 cm at the distal aspect of the 2nd digit on the left, mild serous drainage, no tunneling, no probe to bone , no malodor, pavan-wound erythema noted on extending proximally to the level of MTPJ, pavan-wound maceration noted NEURO: Epicritic and protective sensation mildly diminished ORTHO: mild tenderness on palpation of the 2nd digit - Neurological Exam Neurological exam: Alert, Oriented x3 - Psychiatric Exam Psychiatric exam: Normal Affect, Normal Mood Results - Vital Signs Recent Vital Signs: Last Vital Signs Temp 98.1 F 08/06/17 15:39 Pulse 68 08/06/17 15:39 Resp 18 08/06/17 15:39 BP 124/67 08/06/17 15:39 Pulse Ox 96 08/06/17 15:44 - Labs Result Diagrams: 08/06/17 14:57 08/06/17 14:57 Labs: Laboratory Results - last 24 hr 08/06/17 08/06/17 08/06/17 12:43 14:57 14:57 WBC 10.7 RBC 3.83 Hgb 11.8 L Hct 35.7 MCV 93.3 D MCH 30.8 MCHC 33.0 RDW 13.7 Plt Count 261 MPV 9.2 Neut % (Auto) 67.9 Lymph % (Auto) 24.2 Stewart % (Auto) 5.6 Eos % (Auto) 1.7 Baso % (Auto) 0.6 Neut # (Auto) 7.2 H Lymph # (Auto) 2.6 Stewart # (Auto) 0.6 Eos # (Auto) 0.2 Baso # (Auto) 0.1 Sodium 138 Potassium 4.2 Chloride 98 Carbon Dioxide 26 Anion Gap 18 BUN 17 Creatinine 0.7 Est GFR ( Amer) > 60 Est GFR (Non-Af Amer) > 60 POC Glucose (mg/dL) 324 H Random Glucose 343 H Calcium 8.9 Total Bilirubin 0.6 AST 21 ALT 27 Alkaline Phosphatase 92 Total Protein 6.9 Albumin 3.9 Globulin 3.0 Albumin/Globulin Ratio 1.3 Assessment & Plan - Assessment and Plan (Free Text) Assessment: 62 year old Hebrew speaking female patient with PMHx of DM, HTN, hyperlipidemia , stroke, arthritis was evaluated for left foot pain, swelling and redness and localized cellulitic changes secondary to a wound Plan: Patient seen and evaluated Patient discussed in details with attending Dr. Munoz Labs, vitals and chars reviewed - afebrile and no leukocytosis Wound cleaned using sterile saline and dressed using betadine, bacitracin, DSD, KIRILL bandage Patient advised to change dressing on daily basis and keep the dressing clean, dry and intact Patient educated to prevent from wounded site from getting wet in the shower Patient provided a surgica shoe and educated to remain in a surgical shoe at all time when weightbearing Rx for Augmentin 875mg for 10 day given Patient educated to change dressing using silvadine, betadine on the wound edges and DSD - prescriptions provided Patient educated to return to ED if systemic signs arises Patient educated of proper diabetic diet control and control glucose level Patient to follow up in the podiatry clinic every Thursday with Dr. Chaudhary Patient demonstrated verbal understanding of the plan Thank you for the podiatry consult and allowing to take part in patient care - Date & Time Date: 08/06/17 Time: 16:14
[2017-08-06 18:26] VITALS: BP 140/73; PULSE 64; TEMP 98; O2SAT 99
== END 2017-08-06 18:28 | disposition home or self-care (01) ==
LOC: H.ER 12:06
DX: L03.032 Cellulitis of left toe (principal); E11.9 Type 2 diabetes mellitus without complications; E78.00 Pure hypercholesterolemia, unspecified; I10 Essential (primary) hypertension
CPT/HCPCS: 73630; 80053; 82948; 85025; 87040; 87070; 87181; 96374; 96375; 99283; J2543; J7040

== ENCOUNTER 2017-09-15 12:12 | Emergency (ER) | payer BC, MEDICAID ==
[2017-09-15 12:13] VITALS: BMI 21.7
[2017-09-15 12:35] VITALS: BP 100/55; PULSE 68; RESP 18; TEMP 97.8; O2SAT 100
[2017-09-15] MEDS ORDERED: Sodium Chloride 0.9% 1,000 ML IV STA (12:59)
[2017-09-15 14:15] LABS: BASO # 0.1 K/uL (0.0-0.2); BASO % 0.8 % (0.0-2.0); EOS # 0.2 K/uL (0.0-0.7); HEMOGLOBIN 13.5 g/dL (12.0-16.0); LYMPH # 1.9 K/uL (1.0-4.3); LYMPH % 18.6 % (20.0-40.0); MEAN CELL VOLUME 93.4 fl (81.0-99.0); MEAN CORPUSCULAR HEMOGLOBIN 31.5 pg (27.0-31.0); MEAN CORPUSCULAR HGB CONC 33.7 g/dL (33.0-37.0); MEAN PLATELET VOLUME 9.1 fl (7.2-11.7); MONO # 0.4 K/uL (0.0-0.8); MONO % 4.3 % (0.0-10.0); NEUT # 7.6 K/uL (1.8-7.0); NEUT % 74.3 % (50.0-75.0); RBC 4.28 Mil/uL (3.80-5.20); RED CELL DISTRIBUTION WIDTH 13.3 % (11.5-14.5); WHITE BLOOD COUNT 10.3 K/uL (4.8-10.8)
[2017-09-15 14:19] LABS: SQUAMOUS EPITHIAL 1 /hpf (0-5); URINE BACTERIA RARE (<OCC); URINE BILIRUBIN NEGATIVE (NEGATIVE); URINE BLOOD NEGATIVE (NEGATIVE); URINE CLARITY CLOUDY (Clear); URINE COLOR YELLOW (YELLOW); URINE GLUCOSE (UA) 50 mg/dL (Normal); URINE HYALINE CAST >20 /hpf (0-2); URINE LEUKOCYTE ESTERASE SMALL Leu/uL (Negative); URINE PROTEIN 30 mg/dL (NEGATIVE)
[2017-09-15 14:26] LABS: ALB/GLOB RATIO 1.2 (1.0-2.1); ALBUMIN 4.1 g/dL (3.5-5.0); ALT/SGPT 30 U/L (9-52); AST/SGOT 26 U/L (14-36); BLOOD UREA NITROGEN 22 mg/dl (7-17); CALCIUM 9.6 mg/dL (8.4-10.2); GFR AFRICAN-AMERICAN > 60; GFR NON-AFRICAN AMERICAN > 60; LIPASE 168 U/L (23-300)
--- NOTE | 2017-09-15 18:23 | ED PDOC ---
HPI: General Adult Time Seen by Provider: 09/15/17 12:55 Chief Complaint (Nursing): Abdominal Pain Chief Complaint (Provider): Weakness/Lightheadedness History Per: Patient History/Exam Limitations: no limitations Onset/Duration Of Symptoms: Days (x 2) Have you had recent travel within the past 21 days to any of the following countries: [place], [place], [place] or [place]?: No Current Symptoms Are (Timing): Still Present Additional Complaint(s): 62 year old female presents to the ED requesting to be "checked out" as she has been feeling weak and lightheaded for the past two days. Patient states she would like to be sure blood pressure and glucose levels are not too high or too low. Patient denies fever, abdominal pain, headache, chest pain, shortness of breath, nausea, vomiting, diarrhea, or urinary symptoms. Of note, patient states she is complaint with all diabetes and blood pressure medication. Past Medical History Reviewed: Historical Data, Nursing Documentation, Vital Signs Vital Signs: Last Vital Signs Temp 97.8 F 09/15/17 12:31 Pulse 68 09/15/17 12:31 Resp 18 09/15/17 12:31 BP 100/55 L 09/15/17 12:31 Pulse Ox 100 09/15/17 18:30 - Medical History PMH: Arthritis, Diabetes, HTN, Hypercholesterolemia - Surgical History Surgical History: Carotid Endarterectomy - Family History Family History: States: Unknown Family Hx - Immunization History Hx Tetanus Toxoid Vaccination: No Hx Influenza Vaccination: Yes Hx Pneumococcal Vaccination: No - Home Medications Home Medications: Ambulatory Orders Medication Instructions Recorded Aspirin 81 mg PO DAILY 08/01/13 Lipitor 20 mg PO HS 08/01/13 MetFORMIN 1,000 mg PO BID 08/01/13 novolog Mix 70/30 08/01/13 Ibuprofen [Motrin] 600 mg PO Q8 PRN #15 tab 01/13/17 Non-Formulary 1 ea TOP DAILY #1 01/13/17 Silver Sulfadiazine 1% 50 gm 0.5 ea EXT BID #1 jar 01/13/17 [Silvadene 1% 50 gm] Cyclobenzaprine [Cyclobenzaprine 10 mg PO TID PRN #20 tab 05/28/17 HCl] Naproxen [Naprosyn] 500 mg PO BID #20 tab 12/07/17 Amoxicillin/Clavulanate [Augmentin 1 tab PO BID #14 tab 08/06/17 875 MG-125 MG] Povidone-Iodine [Betadine] 88.7 ml TP DAILY #1 bottle 08/06/17 Silver Sulfadiazine 1% 20 gm 1 ea TOP BID #1 tube 08/06/17 [Silvadene] Cephalexin [Keflex] 500 mg PO Q6 #28 capsule 09/15/17 - Allergies Allergies/Adverse Reactions: Allergies Allergy/AdvReac Type Severity Reaction Status Date / Time No Known Allergies Allergy Verified 05/28/17 17:21 Review of Systems ROS Statement: Except As Marked, All Systems Reviewed And Found Negative Constitutional: Positive for: Weakness. Negative for: Fever Cardiovascular: Positive for: Light Headedness. Negative for: Chest Pain Respiratory: Negative for: Shortness of Breath Gastrointestinal: Negative for: Nausea, Vomiting, Abdominal Pain, Diarrhea Genitourinary Female: Negative for: Dysuria, Frequency, Hematuria Physical Exam - Reviewed Nursing Documentation Reviewed: Yes Vital Signs Reviewed: Yes - Physical Exam Comments: GENERAL APPEARANCE: Patient is awake, alert, oriented x 3, in no acute distress SKIN: Warm, dry; (-) cyanosis. EYES: (-) conjunctival pallor, (-) scleral icterus. ENMT: Mucous membranes [ ] moist. NECK: (-) tenderness, (-) stiffness, (-) lymphadenopathy. CHEST AND RESPIRATORY: (-) rales, (-) rhonchi, (-) wheezes; breath sounds equal bilaterally. HEART AND CARDIOVASCULAR: (-) irregularity; (-) murmur, (-) gallop. ABDOMEN AND GI: (-) distention. Bowel sounds active; (-) guarding, (-) rebound , (-) palpable masses, (-) CVA tenderness. EXTREMITIES: (-) deformity, (-) edema, (+) distal pulses. NEURO AND PSYCH: Mental status as above; (-) focal findings. - Laboratory Results Result Diagrams: 09/15/17 14:02 09/15/17 14:02 - ECG O2 Sat by Pulse Oximetry: 100 (RA) Pulse Ox Interpretation: Normal Medical Decision Making Medical Decision Making: Impression: Generalized weakness Plan: -- Bloodwork -- Urinalysis -- IV Fluids On re-evaluation, patient reports she feels better. Denies any dizziness, chest pain, weakness, and abdominal pain. On exam, lungs clear, cardiac RRR, abdomen still soft and nontender, repeat neuro exam shows no focal findings. Glucose level of 355. Urinalysis reviews which shows a slight UTI. Patient reports she has been eating sugary snacks while in the ER. Based on history, exam and diagnostic results plan will be for discharge home. Advised to follow up with primary care physician in 1-2 days without fail. Advised to take medication as prescribed. Return to the emergency room at any time for any new or worsening symptoms. Patient states she fully agrees with and understands discharge instructions. States that she agrees with the plan and disposition. Verbalized and repeated discharge instructions and plan. I have given the patient opportunity to ask any additional questions. Scribe Attestation: Documented by Moira Stoddard acting as a scribe for PURA Lim Provider Attestation: All medical record entries made by the Scribe were at my direction and personally dictated by me. I have reviewed the chart and agree that the record accurately reflects my personal performance of the history, physical exam, medical decision making, and the department course for this patient. I have also personally directed, reviewed, and agree with the discharge instructions and disposition. Disposition - Clinical Impression Clinical Impression: UTI (urinary tract infection) - Patient ED Disposition Is Patient to be Admitted: No Counseled Patient/Family Regarding: Studies Performed, Diagnosis, Need For Followup, Rx Given - Disposition Disposition: Routine/Home Disposition Time: 15:00 Condition: STABLE Additional Instructions: Follow up with your doctor in 2 days without fail. Take medication as prescribed. Return to the ER at any time for any new or worsening symptoms. Prescriptions: Cephalexin [Keflex] 500 mg PO Q6 #28 capsule Instructions: Urinary Tract Infections in Adults Forms: [employer] ([place]an), [facility] School/Work Excuse Print Language: SLOVENIAN - PA / OUTSIDE [employer]ER / Resident Statement / has reviewed & agrees with the documentation as recorded.
== END 2017-09-15 17:31 | disposition home or self-care (01) ==
LOC: H.ER 12:12
DX: N39.0 Urinary tract infection, site not specified (principal); E11.9 Type 2 diabetes mellitus without complications; E78.00 Pure hypercholesterolemia, unspecified; Z79.82 Long term (current) use of aspirin; I10 Essential (primary) hypertension; Z79.84 Long term (current) use of oral hypoglycemic drugs
CPT/HCPCS: 80053; 81003; 82948; 83690; 85025; 99284; J7040

== ENCOUNTER 2018-05-17 23:08 | Inpatient (IN) | payer BC, MEDICAID ==
[2018-05-17 23:08] VITALS: BMI 21.7
[2018-05-17] MEDS ORDERED: Sodium Chloride 3% 500 ML IV SCH (23:45)
[2018-05-17 23:49] LABS: VENOUS BLOOD GAS BASE EXCESS -8.5 mmol/L (0.0-2.0); VENOUS BLOOD GAS PCO2 47 mmHg (40-60); VENOUS BLOOD GAS PO2 47 mm/Hg (30-55); VENOUS BLOOD PH 7.22 (7.32-7.43)
[2018-05-17 23:50] LABS: BASO # 0.1 K/uL (0.0-0.2); BASO % 0.5 % (0.0-2.0); EOS # 0.1 K/uL (0.0-0.7); EOS % 0.6 % (0.0-4.0); HEMOGLOBIN 12.6 g/dL (12.0-16.0); LYMPH # 4.1 K/uL (1.0-4.3); LYMPH % 20.4 % (20.0-40.0); MEAN CELL VOLUME 90.4 fl (81.0-99.0); MEAN CORPUSCULAR HEMOGLOBIN 29.7 pg (27.0-31.0); MEAN CORPUSCULAR HGB CONC 32.8 g/dL (33.0-37.0); MEAN PLATELET VOLUME 8.3 fl (7.2-11.7); MONO # 1.4 K/uL (0.0-0.8); MONO % 6.8 % (0.0-10.0); NEUT # 14.3 K/uL (1.8-7.0); NEUT % 71.7 % (50.0-75.0); RBC 4.26 Mil/uL (3.80-5.20); RED CELL DISTRIBUTION WIDTH 13.4 % (11.5-14.5)
[2018-05-17 23:52] LABS: INR 0.9; PROTHROMBIN TIME 10.5 Seconds (9.8-13.1)
[2018-05-17] MEDS ORDERED: Sodium Chloride 0.9% 500 ML IV STA (23:53)
[2018-05-17 23:55] LABS: PARTIAL THROMBOPLASTIN TIME 27.1 Seconds (25.6-37.1)
[2018-05-18] LABS: ALB/GLOB RATIO 1.5 (1.0-2.1); ALBUMIN 4.6 g/dL (3.5-5.0); ALT/SGPT 25 U/L (9-52); AST/SGOT 41 U/L (14-36); BLOOD UREA NITROGEN 11 mg/dl (7-17); CALCIUM 8.1 mg/dL (8.4-10.2); GFR NON-AFRICAN AMERICAN > 60
--- NOTE | 2018-05-18 00:05 | ED PDOC ---
HPI: Altered Mental Status Time Seen by Provider: 05/17/18 23:19 Chief Complaint (Nursing): Altered Mental Status Chief Complaint (Provider): Altered Mental Status History Per: EMS History/Exam Limitations: Clinical Condition (AMS) Onset/Duration Of Symptoms: Mins Current Symptoms Are (Timing): Still Present Additional Complaint(s): 63 year old female presents to the ED via EMS due to altered mental status. EMS was called to the home when the 9 year old grandson reported patient was acting strange. Patient was found altered and with food spilled to the side of her mouth and pants were down while she was sitting on the couch. According to EMS, they were unable to obtain history from the patient. EMS states they found diabetes medications in the home. On arrival to the ER patient had a seizure. Further past medical history obtained from previous charts which included HTN, diabetes, and high cholesterol. No mention of seizure disorder in previous charts. PMD: none Past Medical History Reviewed: Historical Data, Nursing Documentation, Vital Signs, Unable To Obtain Vital Signs: Last Vital Signs Temp 99.1 F 05/17/18 23:11 Pulse 93 H 05/17/18 23:11 Resp 16 05/17/18 23:11 BP 189/101 H 05/17/18 23:11 Pulse Ox 98 05/17/18 23:11 - Medical History PMH: Arthritis, Diabetes, HTN, Hypercholesterolemia - Surgical History Surgical History: Carotid Endarterectomy - Family History Family History: States: Unknown Family Hx - Immunization History Hx Tetanus Toxoid Vaccination: No Hx Influenza Vaccination: Yes Hx Pneumococcal Vaccination: No - Home Medications Home Medications: Ambulatory Orders Medication Instructions Recorded Aspirin 81 mg PO DAILY 08/01/13 Lipitor 20 mg PO DAILY 08/01/13 novolog Mix 70/30 08/01/13 RX: Ibuprofen [Motrin Tab] 600 mg PO Q8 PRN #15 tab 01/13/17 RX: Silver Sulfadiazine 1% 50 gm 0.5 ea EXT BID #1 jar 01/13/17 [Silvadene 1% 50 gm] RX: Cyclobenzaprine [Flexeril] 10 mg PO TID PRN #20 tab 05/28/17 RX: Sitagliptin Phos/Metformin HCl 1 tab PO DAILY 05/18/18 [Janumet 50-1,000 mg Tablet] RX: Benzonatate [Tessalon Perle] 100 mg PO TID 05/20/18 RX: Clopidogrel [Plavix] 75 mg PO DAILY 05/20/18 RX: Icosapent Ethyl [Vascepa] 1 gm PO BID 05/20/18 RX: Levocetirizine Dihydrochloride 5 mg PO HS 05/20/18 [Xyzal] RX: Losartan/Hydrochlorothiazide 05/20/18 [Losartan-Hctz 50-12.5 mg Tab] RX: Montelukast Sodium [Singulair] 10 mg PO HS 05/20/18 RX: Repaglinide [Prandin] 2 mg PO TID 05/20/18 - Allergies Allergies/Adverse Reactions: Allergies Allergy/AdvReac Type Severity Reaction Status Date / Time No Known Allergies Allergy Verified 05/28/17 17:21 Review of Systems Review Of Systems: ROS cannot be obtained secondary to pt's inabilty to answer questions. (Altered mental status) Physical Exam - Reviewed Nursing Documentation Reviewed: Yes Vital Signs Reviewed: Yes - Physical Exam Appears: Positive for: In Acute Distress (neurologic distress) Head Exam: Positive for: ATRAUMATIC, NORMOCEPHALIC Skin: Positive for: Warm, Dry Eye Exam: Positive for: Normal appearance, EOMI, PERRL ENT: Positive for: Pharynx Is (clear) Neck: Positive for: Painless ROM, Supple Cardiovascular/Chest: Positive for: Regular Rate, Rhythm. Negative for: Murmur Respiratory: Positive for: Normal Breath Sounds. Negative for: Respiratory Distress Gastrointestinal/Abdominal: Positive for: Soft. Negative for: Mass, Distended Back: Positive for: Normal Inspection Extremity: Positive for: Normal ROM (Moving all extremities equally). Negative for: Deformity Lymphatic: Negative for: Adenopathy Neurologic/Psych: Positive for: Other (Agitated, possibly postictal; obtunded; gag reflex intact). Negative for: Alert, Oriented, Motor/Sensory Deficits - Laboratory Results Result Diagrams: 05/21/18 05:15 05/21/18 05:15 - ECG O2 Sat by Pulse Oximetry: 98 (RA) Pulse Ox Interpretation: Normal Medical Decision Making Medical Decision Making: Initial Impression: Altered mental status Differentials include electrolyte abnormality, new onset seizure, stroke, traumatic brain injury Initial Plan: --BBK --VBG shock panel --CT head --ECG --Alcohol serum --CMP --Drug screen --Magnesium stat --Phosphorous stat --Troponin stat --ED urine dipstick --CBC --Partial thromboplastin --Prothrombin time --Chest X-ray --Ativan 2mg IV --Sodium chloride 500mL IV --1:1 observation Pt restless while in ER and unable to redirect. Not completely waking up but pulling at lines and monitor. Required benzodiazipienes for restlessness and restraints and 1:1 for safety. 24:[address] Medeiros. Pending ER workup, reassessment, and final ER disposition. Scribe Attestation: Documented by Bean Davis acting as a scribe for Mounika No MD. Provider Scribe Attestation: All medical record entries made by the Scribe were at my direction and personally dictated by me. I have reviewed the chart and agree that the record accurately reflects my personal performance of the history, physical exam, medical decision making, and the department course for this patient. I have also personally directed, reviewed, and agree with the discharge instructions and disposition. Disposition - Clinical Impression Clinical Impression: Altered mental status, Hyponatremia - Disposition Disposition Time: 00:00 Condition: GUARDED
--- NOTE | 2018-05-18 01:15 | ED PDOC ---
- Laboratory Results Result Diagrams: 05/17/18 23:40 05/18/18 01:25 - ECG O2 Sat by Pulse Oximetry: 98 (RA) - Critical Care Total Time (In Min): 20 Comments: hyponatremia and AMS Medical Decision Making Medical Decision Makin:00 Patient endorsed to this provider from Dr. No. Pending accucheck, repeat labs, and CT brain. 01:24 CT Brain Normal size of the ventricles and extra-axial spaces for the patient's age. Normal white matter tracts of the supratentorial brain. Normal basal ganglia and thalami. Normal brainstem. Normal cerebellum. There is no demonstrated extra-axial, intraparenchymal, or intraventricular hemorrhage. There are no findings of an acute ischemic infarction. Normal calvarium. There is no demonstrated fracture. Normal soft tissue structures. Normal visualized paranasal sinuses. IMPRESSION: Normal unenhanced CT scan of the brain. 03:[address] Repeat labs show continued hyponatremia. Patient with white blood cell count of 20. Patient continues to be disoriented trying to remove the IV requiring 2mg of Ativan as she continues to receive hypertonic saline. Patient to be admitted to the ICU. ICU consult placed and admission order placed. Scribe Attestation: Documented by Bean Davis acting as a scribe for Suzanne Medeiros MD. Provider Scribe Attestation: All medical record entries made by the Scribe were at my direction and personally dictated by me. I have reviewed the chart and agree that the record accurately reflects my personal performance of the history, physical exam, medical decision making, and the department course for this patient. I have also personally directed, reviewed, and agree with the discharge instructions and disposition. Disposition - Clinical Impression Clinical Impression: Altered mental status, Hyponatremia - POA Present On Arrival: Poor Glycemic Control - Disposition Disposition: Admitted as In-Patient Disposition Time: 03:32 Condition: CRITICAL
[2018-05-18 01:21] LABS: BARBITURATES, UR NEGATIVE (NEGATIVE); BENZODIAZEPINES, UR NEGATIVE (NEGATIVE); OPIATES, UR NEGATIVE (NEGATIVE); PHENCYCLIDINE, UR NEGATIVE (NEGATIVE)
[2018-05-18 01:50] LABS: BLOOD UREA NITROGEN 12 mg/dl (7-17); CALCIUM 7.1 mg/dL (8.4-10.2); GFR NON-AFRICAN AMERICAN > 60
--- NOTE | 2018-05-18 03:54 | CP.PCM.CON ---
History of Present Illness - History of Present Illness History of Present Illness: CC: altered mental status Admitted to: Dr. Mota service HPI: This is a 63 y/o female with MHx likely significant for DM2, HTN, HLD, and arthritis who is brought in by EMS for AMS. Apparently patient was found to be acting unusually and her 9 y/o grandson called 911. Per report, patient was found confused with food spilling from her mouth and with her pants down sitting on the couch. Since arrival in ER, patient has continued to be agitated/confused, and has had to be sedated, so no history could really be obtained from her. ROS: cannot be performed because of AMS MHx: DM2, HTN, HLD, arthritis SHx: Cannot obtain Allergies: NKDA Medications: Per med rec Family Hx: Cannot obtain Social Hx: Unable to obtain Surrogate Dec Mkr: Still pending Past Patient History - Past Social History Smoking Status: Former Smoker - CARDIAC Hx Hypercholesterolemia: Yes Hx Hypertension: Yes - ENDOCRINE/METABOLIC Hx Diabetes Mellitus Type 1: Yes - MUSCULOSKELETAL/RHEUMATOLOGICAL Hx Arthritis: Yes - PSYCHIATRIC Hx Substance Use: No - SURGICAL HISTORY Hx Carotid Endarterectomy: Yes - ANESTHESIA Hx Anesthesia: Yes Hx Anesthesia Reactions: No Hx Malignant Hyperthermia: No Meds Allergies/Adverse Reactions: Allergies Allergy/AdvReac Type Severity Reaction Status Date / Time No Known Allergies Allergy Verified 05/28/17 17:21 - Medications Medications: Current Medications Enoxaparin Sodium (Lovenox) 40 mg SC DAILY THOMAS; Protocol Sodium Chloride (Hypertonic Saline 3%) 500 mls @ 20 mls/hr IV .Q24H THOMAS Stop: 05/18/18 23:53 Last Admin: 05/18/18 01:21 Dose: 20 mls/hr Sodium Chloride (Sodium Chloride 0.9%) 1,000 mls @ 125 mls/hr IV .Q8H THOMAS Stop: 05/18/18 19:44 Insulin Human Lispro (Humalog) 0 units SC Q6H THOMAS; Protocol Lorazepam (Ativan) 2 mg IVP Q6 PRN PRN Reason: Seizures, agitation Physical Exam - Constitutional Appears: Agitated, Confused - Head Exam Head Exam: ATRAUMATIC, NORMOCEPHALIC - ENT Exam ENT Exam: Mucous Membranes Moist - Neck Exam Neck exam: Positive for: Full Rom - Respiratory Exam Respiratory Exam: Clear to Auscultation Bilateral, NORMAL BREATHING PATTERN - Cardiovascular Exam Cardiovascular Exam: Tachycardia, REGULAR RHYTHM, +S1, +S2 - GI/Abdominal Exam GI & Abdominal Exam: Normal Bowel Sounds, Soft - Extremities Exam Extremities exam: Positive for: full ROM, normal inspection - Neurological Exam Neurological exam: Altered Additional comments: Sedated - Skin Skin Exam: Dry, Warm Results - Vital Signs Recent Vital Signs: Last Vital Signs Temp 99.1 F 05/17/18 23:11 Pulse 79 05/18/18 00:30 Resp 20 05/18/18 00:30 BP 126/62 05/18/18 00:30 Pulse Ox 98 05/18/18 03:37 - Labs Result Diagrams: 05/17/18 23:40 05/18/18 01:25 Labs: Laboratory Results - last 24 hr 05/17/18 05/17/18 05/17/18 23:23 23:40 23:40 WBC 20.0 H D RBC 4.26 Hgb 12.6 Hct 38.5 MCV 90.4 D MCH 29.7 MCHC 32.8 L RDW 13.4 Plt Count 330 MPV 8.3 Neut % (Auto) 71.7 Lymph % (Auto) 20.4 [place] % (Auto) 6.8 Eos % (Auto) 0.6 Baso % (Auto) 0.5 Neut # (Auto) 14.3 H Lymph # (Auto) 4.1 [place] # (Auto) 1.4 H Eos # (Auto) 0.1 Baso # (Auto) 0.1 PT INR APTT pO2 VBG pH VBG pCO2 VBG HCO3 VBG Total CO2 VBG O2 Sat (Calc) VBG Base Excess VBG Potassium Glucose Lactate FiO2 Crit Value Called To Crit Value Called By Crit Value Read Back Blood Gas Notified Time Sodium 122 L Potassium 3.3 L Chloride 82 L Carbon Dioxide 20 L Anion Gap 23 H BUN 11 Creatinine 0.4 L Est GFR ( Amer) > 60 Est GFR (Non-Af Amer) > 60 POC Glucose (mg/dL) 238 H Random Glucose 273 H Calcium 8.1 L Phosphorus 2.3 L Magnesium 1.5 L Total Bilirubin 1.2 AST 41 H D ALT 25 Alkaline Phosphatase 102 Ammonia Troponin I < 0.0120 Total Protein 7.8 Albumin 4.6 Globulin 3.2 Albumin/Globulin Ratio 1.5 Venous Blood Potassium Urine Opiates Screen Urine Methadone Screen Ur Barbiturates Screen Ur Phencyclidine Scrn Ur Amphetamines Screen U Benzodiazepines Scrn U Oth Cocaine Metabols U Cannabinoids Screen Alcohol, Quantitative < 10 Blood Type Antibody Screen BBK History Checked 05/17/18 05/17/18 05/17/18 23:40 23:40 23:45 WBC RBC Hgb Hct MCV MCH MCHC RDW Plt Count MPV Neut % (Auto) Lymph % (Auto) [place] % (Auto) Eos % (Auto) Baso % (Auto) Neut # (Auto) Lymph # (Auto) [place] # (Auto) Eos # (Auto) Baso # (Auto) PT 10.5 INR 0.9 APTT 27.1 pO2 47 VBG pH 7.22 L VBG pCO2 47 VBG HCO3 17.8 VBG Total CO2 20.6 L VBG O2 Sat (Calc) 82.2 H VBG Base Excess -8.5 L VBG Potassium 3.2 L Glucose 291 H Lactate 9.8 H* FiO2 21.0 Crit Value Called To Dr cornel garcia Crit Value Called By Crit Value Read Back Y Blood Gas Notified Time 2349 Sodium 119.0 L* Potassium Chloride 81.0 L Carbon Dioxide Anion Gap BUN Creatinine Est GFR ( Amer) Est GFR (Non-Af Amer) POC Glucose (mg/dL) Random Glucose Calcium Phosphorus Magnesium Total Bilirubin AST ALT Alkaline Phosphatase Ammonia Troponin I Total Protein Albumin Globulin Albumin/Globulin Ratio Venous Blood Potassium 3.2 L Urine Opiates Screen Urine Methadone Screen Ur Barbiturates Screen Ur Phencyclidine Scrn Ur Amphetamines Screen U Benzodiazepines Scrn U Oth Cocaine Metabols U Cannabinoids Screen Alcohol, Quantitative Blood Type O POSITIVE Antibody Screen Negative BBK History Checked No verified bt 05/18/18 05/18/18 05/18/18 00:27 01:02 01:25 WBC RBC Hgb Hct MCV MCH MCHC RDW Plt Count MPV Neut % (Auto) Lymph % (Auto) [place] % (Auto) Eos % (Auto) Baso % (Auto) Neut # (Auto) Lymph # (Auto) [place] # (Auto) Eos # (Auto) Baso # (Auto) PT INR APTT pO2 VBG pH VBG pCO2 VBG HCO3 VBG Total CO2 VBG O2 Sat (Calc) VBG Base Excess VBG Potassium Glucose Lactate FiO2 Crit Value Called To Crit Value Called By Crit Value Read Back Blood Gas Notified Time Sodium 120 L* Potassium 3.8 Chloride 85 L Carbon Dioxide 24 Anion Gap 15 BUN 12 Creatinine 0.3 L Est GFR ( Amer) > 60 Est GFR (Non-Af Amer) > 60 POC Glucose (mg/dL) Random Glucose 237 H Calcium 7.1 L Phosphorus 2.0 L Magnesium 1.4 L Total Bilirubin AST ALT Alkaline Phosphatase Ammonia 36 Troponin I Total Protein Albumin Globulin Albumin/Globulin Ratio Venous Blood Potassium Urine Opiates Screen Negative Urine Methadone Screen Negative Ur Barbiturates Screen Negative Ur Phencyclidine Scrn Negative Ur Amphetamines Screen Negative U Benzodiazepines Scrn Negative U Oth Cocaine Metabols Negative U Cannabinoids Screen Negative Alcohol, Quantitative Blood Type Antibody Screen BBK History Checked - EKG Data EKG Interpreted by: Myself EKG shows normal: Sinus rhythm - EKG Data EKG comments: MIHIR, possible LVH - Imaging and Cardiology CT scan - head Status: Image reviewed by me, Report reviewed by me (No acute findings) Assessment & Plan (1) Altered mental status Assessment and Plan: 63 y/o female brought in by EMS with AMS. Found to have hyponatrema -- differential for current presentation includes seizure, other metabolic encephalopathy, or possible TIA/CVA. 1) Hyponatremia/AMS -Admit to ICU -Obtain Serum/Urine osms, urine lytes, and TSH/FT4 -Continue IV NS for now -PRN Ativan IV for agitation or seizures -Neurology consult in AM; consider MRI and EEG 2) Elevated WBC count -- unclear etiology; no clear sign of infection; repeat CBC in AM 3) DM2 -NPO now -q6h accucheck with SSI 4) DVT PPx -- SQ Lovenox Status: Acute (2) Hyponatremia Status: Acute (3) DM2 (diabetes mellitus, type 2) Status: Acute (4) DVT prophylaxis Status: Acute
[2018-05-18 04:02] LABS: ABG ALLEN TEST YES; ARTERIAL BLOOD GAS HCO3 26.2 mmol/L (21-28); ARTERIAL BLOOD GAS HEMOGLOBIN 12.3 g/dL (11.7-17.4); ARTERIAL BLOOD GAS O2 CAPACITY 16.9 mL/dL (16-24); ARTERIAL BLOOD GAS O2 CONTENT 16.9 ML/dL (15-23); ARTERIAL BLOOD GAS O2 SAT 100.2 % (95-98); ARTERIAL BLOOD GAS PCO2 38 mm/Hg (35-45); ARTERIAL BLOOD GAS PH 7.44 (7.35-7.45); ARTERIAL BLOOD GAS PO2 147 mm/Hg (80-100)
[2018-05-18 04:57] LABS: BLOOD UREA NITROGEN 11 mg/dl (7-17); CALCIUM 7.3 mg/dL (8.4-10.2); GFR NON-AFRICAN AMERICAN > 60
[2018-05-18 05:21] LABS: T4 7.16 ug/dl (5.5-11.0)
[2018-05-18 05:35] LABS: T3 0.804 nmol/L (1.49-2.60)
[2018-05-18] MEDS: Insulin Lispro (humaLOG) 100 Units/ml Inj SC SCH ×4 (06:47→22:31)
[2018-05-18 07:06] LABS: HEMOGLOBIN 12.2 g/dL (12.0-16.0); MEAN CELL VOLUME 88.3 fl (81.0-99.0); MEAN CORPUSCULAR HEMOGLOBIN 30.2 pg (27.0-31.0); MEAN CORPUSCULAR HGB CONC 34.2 g/dL (33.0-37.0); RBC 4.05 Mil/uL (3.80-5.20); WHITE BLOOD COUNT 17.8 K/uL (4.8-10.8)
--- NOTE | 2018-05-18 08:31 | CP.PCM.HP ---
History of Present Illness - History of Present Illness History of Present Illness: History taken mostly by ED note and Consult note, patient agitated, poor historian, no family at bedside. 63 y/o female with MHx likely significant for DM2, HTN, HLD, and arthritis arrived to ED via EMS for AMS. Apparently patient was found to be acting unusually and her 9 y/o grandson called 911. Per report, patient was found confused with food spilling from her mouth and with her pants down sitting on the couch. Patient seen and examined today in ICU, no family at bedside, patient has continued to be agitated/confused, so no history could really be obtained from her. ROS: difficult to obtain because of AMS MHx: DM2, HTN, HLD, arthritis SHx: Cannot obtain Allergies: NKDA Medications: Per med rec Family Hx: Cannot obtain Social Hx: Unable to obtain Present on Admission - Present on Admission Any Indicators Present on Admission: No Past Patient History - Past Social History Smoking Status: Former Smoker - CARDIAC Hx Cardiac Disorders: Yes (htn, hld) - NEUROLOGICAL Hx Neurological Disorder: Yes - ENDOCRINE/METABOLIC Hx Endocrine Disorders: Yes (dm) - MUSCULOSKELETAL/RHEUMATOLOGICAL Hx Arthritis: Yes - PSYCHIATRIC Hx Substance Use: No - SURGICAL HISTORY Hx Carotid Endarterectomy: Yes - ANESTHESIA Hx Anesthesia: Yes Hx Anesthesia Reactions: No Hx Malignant Hyperthermia: No Meds Allergies/Adverse Reactions: Allergies Allergy/AdvReac Type Severity Reaction Status Date / Time No Known Allergies Allergy Verified 05/28/17 17:21 Physical Exam - Constitutional Appears: Agitated, Confused - Head Exam Head Exam: NORMAL INSPECTION - ENT Exam ENT Exam: Mucous Membranes Moist - Respiratory Exam Respiratory Exam: Clear to Auscultation Bilateral, NORMAL BREATHING PATTERN - Cardiovascular Exam Cardiovascular Exam: REGULAR RHYTHM, +S1, +S2 - GI/Abdominal Exam GI & Abdominal Exam: Normal Bowel Sounds, Soft. absent: Distended - Extremities Exam Extremities exam: Negative for: pedal edema - Neurological Exam Neurological exam: Altered - Skin Skin Exam: Dry, Warm Results - Vital Signs Recent Vital Signs: Last Vital Signs Temp 99.4 F 05/18/18 07:50 Pulse 87 05/18/18 07:50 Resp 20 05/18/18 07:50 BP 136/70 05/18/18 07:50 Pulse Ox 100 05/18/18 07:30 - Labs Result Diagrams: 05/18/18 06:30 05/18/18 04:12 Labs: Laboratory Results - last 24 hr 05/17/18 05/17/18 05/17/18 23:23 23:40 23:40 WBC 20.0 H D RBC 4.26 Hgb 12.6 Hct 38.5 MCV 90.4 D MCH 29.7 MCHC 32.8 L RDW 13.4 Plt Count 330 MPV 8.3 Neut % (Auto) 71.7 Lymph % (Auto) 20.4 [place] % (Auto) 6.8 Eos % (Auto) 0.6 Baso % (Auto) 0.5 Neut # (Auto) 14.3 H Lymph # (Auto) 4.1 [place] # (Auto) 1.4 H Eos # (Auto) 0.1 Baso # (Auto) 0.1 PT INR APTT pCO2 pO2 HCO3 ABG pH ABG Total CO2 ABG O2 Saturation ABG O2 Content ABG Base Excess ABG Hemoglobin ABG Carboxyhemoglobin POC ABG HHb (Measured) ABG Methemoglobin ABG O2 Capacity Yousuf Test VBG pH VBG pCO2 VBG HCO3 VBG Total CO2 VBG O2 Sat (Calc) VBG Base Excess VBG Potassium A-a O2 Difference Hgb O2 Saturation Glucose Lactate FiO2 Crit Value Called To Crit Value Called By Crit Value Read Back Blood Gas Notified Time Sodium 122 L Potassium 3.3 L Chloride 82 L Carbon Dioxide 20 L Anion Gap 23 H BUN 11 Creatinine 0.4 L Est GFR ( Amer) > 60 Est GFR (Non-Af Amer) > 60 POC Glucose (mg/dL) 238 H Random Glucose 273 H Serum Osmolality Calcium 8.1 L Phosphorus 2.3 L Magnesium 1.5 L Total Bilirubin 1.2 AST 41 H D ALT 25 Alkaline Phosphatase 102 Ammonia Troponin I < 0.0120 Total Protein 7.8 Albumin 4.6 Globulin 3.2 Albumin/Globulin Ratio 1.5 Thyroxine (T4) Total T3 TSH 3rd Generation Venous Blood Potassium Urine Osmolality Ur Random Sodium Ur Random Potassium Urine Opiates Screen Urine Methadone Screen Ur Barbiturates Screen Ur Phencyclidine Scrn Ur Amphetamines Screen U Benzodiazepines Scrn U Oth Cocaine Metabols U Cannabinoids Screen Alcohol, Quantitative < 10 Blood Type Blood Type Confirm Antibody Screen BBK History Checked 05/17/18 05/17/18 05/17/18 23:40 23:40 23:45 WBC RBC Hgb Hct MCV MCH MCHC RDW Plt Count MPV Neut % (Auto) Lymph % (Auto) [place] % (Auto) Eos % (Auto) Baso % (Auto) Neut # (Auto) Lymph # (Auto) [place] # (Auto) Eos # (Auto) Baso # (Auto) PT 10.5 INR 0.9 APTT 27.1 pCO2 pO2 47 HCO3 ABG pH ABG Total CO2 ABG O2 Saturation ABG O2 Content ABG Base Excess ABG Hemoglobin ABG Carboxyhemoglobin POC ABG HHb (Measured) ABG Methemoglobin ABG O2 Capacity Yu[place]uf Test VBG pH 7.22 L VBG pCO2 47 VBG HCO3 17.8 VBG Total CO2 20.6 L VBG O2 Sat (Calc) 82.2 H VBG Base Excess -8.5 L VBG Potassium 3.2 L A-a O2 Difference Hgb O2 Saturation Glucose 291 H Lactate 9.8 H* FiO2 21.0 Crit Value Called To Dr cornel garcia Crit Value Called By Devon Crit Value Read Back Y Blood Gas Notified Time 2349 Sodium 119.0 L* Potassium Chloride 81.0 L Carbon Dioxide Anion Gap BUN Creatinine Est GFR ( Amer) Est GFR (Non-Af Amer) POC Glucose (mg/dL) Random Glucose Serum Osmolality Calcium Phosphorus Magnesium Total Bilirubin AST ALT Alkaline Phosphatase Ammonia Troponin I Total Protein Albumin Globulin Albumin/Globulin Ratio Thyroxine (T4) Total T3 TSH 3rd Generation Venous Blood Potassium 3.2 L Urine Osmolality Ur Random Sodium Ur Random Potassium Urine Opiates Screen Urine Methadone Screen Ur Barbiturates Screen Ur Phencyclidine Scrn Ur Amphetamines Screen U Benzodiazepines Scrn U Oth Cocaine Metabols U Cannabinoids Screen Alcohol, Quantitative Blood Type O POSITIVE Blood Type Confirm Antibody Screen Negative BBK History Checked No verified bt 05/18/18 05/18/18 05/18/18 00:27 01:02 01:25 WBC RBC Hgb Hct MCV MCH MCHC RDW Plt Count MPV Neut % (Auto) Lymph % (Auto) [place] % (Auto) Eos % (Auto) Baso % (Auto) Neut # (Auto) Lymph # (Auto) [place] # (Auto) Eos # (Auto) Baso # (Auto) PT INR APTT pCO2 pO2 HCO3 ABG pH ABG Total CO2 ABG O2 Saturation ABG O2 Content ABG Base Excess ABG Hemoglobin ABG Carboxyhemoglobin POC ABG HHb (Measured) ABG Methemoglobin ABG O2 Capacity Yousuf Test VBG pH VBG pCO2 VBG HCO3 VBG Total CO2 VBG O2 Sat (Calc) VBG Base Excess VBG Potassium A-a O2 Difference Hgb O2 Saturation Glucose Lactate FiO2 Crit Value Called To Crit Value Called By Crit Value Read Back Blood Gas Notified Time Sodium 120 L* Potassium 3.8 Chloride 85 L Carbon Dioxide 24 Anion Gap 15 BUN 12 Creatinine 0.3 L Est GFR ( Amer) > 60 Est GFR (Non-Af Amer) > 60 POC Glucose (mg/dL) Random Glucose 237 H Serum Osmolality Calcium 7.1 L Phosphorus 2.0 L Magnesium 1.4 L Total Bilirubin AST ALT Alkaline Phosphatase Ammonia 36 Troponin I Total Protein Albumin Globulin Albumin/Globulin Ratio Thyroxine (T4) Total T3 TSH 3rd Generation Venous Blood Potassium Urine Osmolality Ur Random Sodium Ur Random Potassium Urine Opiates Screen Negative Urine Methadone Screen Negative Ur Barbiturates Screen Negative Ur Phencyclidine Scrn Negative Ur Amphetamines Screen Negative U Benzodiazepines Scrn Negative U Oth Cocaine Metabols Negative U Cannabinoids Screen Negative Alcohol, Quantitative Blood Type Blood Type Confirm Antibody Screen BBK History Checked 05/18/18 05/18/18 05/18/18 04:01 04:12 04:12 WBC RBC Hgb Hct MCV MCH MCHC RDW Plt Count MPV Neut % (Auto) Lymph % (Auto) [place] % (Auto) Eos % (Auto) Baso % (Auto) Neut # (Auto) Lymph # (Auto) [place] # (Auto) Eos # (Auto) Baso # (Auto) PT INR APTT pCO2 38 pO2 147 H HCO3 26.2 ABG pH 7.44 ABG Total CO2 27.0 ABG O2 Saturation 100.2 H ABG O2 Content 16.9 ABG Base Excess 1.7 ABG Hemoglobin 12.3 ABG Carboxyhemoglobin 1.8 H POC ABG HHb (Measured) -0.2 L ABG Methemoglobin 2.5 ABG O2 Capacity 16.9 Yousuf Test Yes VBG pH VBG pCO2 VBG HCO3 VBG Total CO2 VBG O2 Sat (Calc) VBG Base Excess VBG Potassium A-a O2 Difference 34.0 Hgb O2 Saturation 96.0 Glucose Lactate FiO2 32.0 Crit Value Called To Dr emery siddiqi Crit Value Called By Devon Crit Value Read Back Y Blood Gas Notified Time 402 Sodium 123 L Potassium 3.4 L Chloride 87 L Carbon Dioxide 25 Anion Gap 14 BUN 11 Creatinine 0.3 L Est GFR ( Amer) > 60 Est GFR (Non-Af Amer) > 60 POC Glucose (mg/dL) Random Glucose 204 H Serum Osmolality Calcium 7.3 L Phosphorus Magnesium Total Bilirubin AST ALT Alkaline Phosphatase Ammonia Troponin I Total Protein Albumin Globulin Albumin/Globulin Ratio Thyroxine (T4) 7.16 Total T3 0.804 L TSH 3rd Generation 0.77 Venous Blood Potassium Urine Osmolality 623 Ur Random Sodium 139 Ur Random Potassium 41.4 Urine Opiates Screen Urine Methadone Screen Ur Barbiturates Screen Ur Phencyclidine Scrn Ur Amphetamines Screen U Benzodiazepines Scrn U Oth Cocaine Metabols U Cannabinoids Screen Alcohol, Quantitative Blood Type Blood Type Confirm Antibody Screen BBK History Checked 05/18/18 05/18/18 05/18/18 04:12 04:35 06:30 WBC 17.8 H RBC 4.05 Hgb 12.2 Hct 35.7 MCV 88.3 D MCH 30.2 MCHC 34.2 RDW 13.0 Plt Count 287 MPV Neut % (Auto) Lymph % (Auto) [place] % (Auto) Eos % (Auto) Baso % (Auto) Neut # (Auto) Lymph # (Auto) [place] # (Auto) Eos # (Auto) Baso # (Auto) PT INR APTT pCO2 pO2 HCO3 ABG pH ABG Total CO2 ABG O2 Saturation ABG O2 Content ABG Base Excess ABG Hemoglobin ABG Carboxyhemoglobin POC ABG HHb (Measured) ABG Methemoglobin ABG O2 Capacity Yousuf Test VBG pH VBG pCO2 VBG HCO3 VBG Total CO2 VBG O2 Sat (Calc) VBG Base Excess VBG Potassium A-a O2 Difference Hgb O2 Saturation Glucose Lactate FiO2 Crit Value Called To Crit Value Called By Crit Value Read Back Blood Gas Notified Time Sodium Potassium Chloride Carbon Dioxide Anion Gap BUN Creatinine Est GFR ( Amer) Est GFR (Non-Af Amer) POC Glucose (mg/dL) 164 H Random Glucose Serum Osmolality 258 L Calcium Phosphorus Magnesium Total Bilirubin AST ALT Alkaline Phosphatase Ammonia Troponin I Total Protein Albumin Globulin Albumin/Globulin Ratio Thyroxine (T4) Total T3 TSH 3rd Generation Venous Blood Potassium Urine Osmolality Ur Random Sodium Ur Random Potassium Urine Opiates Screen Urine Methadone Screen Ur Barbiturates Screen Ur Phencyclidine Scrn Ur Amphetamines Screen U Benzodiazepines Scrn U Oth Cocaine Metabols U Cannabinoids Screen Alcohol, Quantitative Blood Type Blood Type Confirm Antibody Screen BBK History Checked 05/18/18 05/18/18 06:45 06:45 WBC RBC Hgb Hct MCV MCH MCHC RDW Plt Count MPV Neut % (Auto) Lymph % (Auto) [place] % (Auto) Eos % (Auto) Baso % (Auto) Neut # (Auto) Lymph # (Auto) [place] # (Auto) Eos # (Auto) Baso # (Auto) PT INR APTT pCO2 pO2 HCO3 ABG pH ABG Total CO2 ABG O2 Saturation ABG O2 Content ABG Base Excess ABG Hemoglobin ABG Carboxyhemoglobin POC ABG HHb (Measured) ABG Methemoglobin ABG O2 Capacity Yousuf Test VBG pH VBG pCO2 VBG HCO3 VBG Total CO2 VBG O2 Sat (Calc) VBG Base Excess VBG Potassium A-a O2 Difference Hgb O2 Saturation Glucose Lactate FiO2 Crit Value Called To Crit Value Called By Crit Value Read Back Blood Gas Notified Time Sodium Potassium Chloride Carbon Dioxide Anion Gap BUN Creatinine Est GFR ( Amer) Est GFR (Non-Af Amer) POC Glucose (mg/dL) 133 H Random Glucose Serum Osmolality Calcium Phosphorus Magnesium Total Bilirubin AST ALT Alkaline Phosphatase Ammonia Troponin I Total Protein Albumin Globulin Albumin/Globulin Ratio Thyroxine (T4) Total T3 TSH 3rd Generation Venous Blood Potassium Urine Osmolality Ur Random Sodium Ur Random Potassium Urine Opiates Screen Urine Methadone Screen Ur Barbiturates Screen Ur Phencyclidine Scrn Ur Amphetamines Screen U Benzodiazepines Scrn U Oth Cocaine Metabols U Cannabinoids Screen Alcohol, Quantitative Blood Type Blood Type Confirm O POSITIVE Antibody Screen BBK History Checked Assessment & Plan - Assessment and Plan (Free Text) Assessment: 63 y/o female admitted with AMS, found to have hyponatremia. Plan: - altered, VSS - r/o seizure, metabolic encephalopathy, or possible TIA/CVA. - Head CT: negative for intracranial mass, hemorrhage or acute infarct. - Neurology consult - Leukocytosis trending down, afebrile, no signs of infection - NS IV - Hypertonic saline - f/u repeat labs in am - rest of plan as ordered case discussed with Dr Mota.
--- NOTE | 2018-05-18 08:40 | CT ---
Date of service: 05/18/2018 PROCEDURE: CT HEAD WITHOUT CONTRAST. HISTORY: ams COMPARISON: None available. TECHNIQUE: Axial computed tomography images were obtained through the head/brain without intravenous contrast. Radiation dose: Total exam DLP = 1101.64 mGy-cm. This CT exam was performed using one or more of the following dose reduction techniques: Automated exposure control, adjustment of the mA and/or kV according to patient size, and/or use of iterative reconstruction technique. FINDINGS: HEMORRHAGE: No intracranial hemorrhage. BRAIN: No mass effect or edema. No atrophy or chronic microvascular ischemic changes. VENTRICLES: Unremarkable. No hydrocephalus. CALVARIUM: Unremarkable. PARANASAL SINUSES: Unremarkable as visualized. No significant inflammatory changes. MASTOID AIR CELLS: Unremarkable as visualized. No inflammatory changes. OTHER FINDINGS: None. IMPRESSION: Normal CT of the Head. No intracranial mass, hemorrhage or evidence of acute infarct. The preliminary findings for this examination were reported by [facility] Radiology at 1:24 a.m. on 05/18/2018. There is concurrence of this report with the preliminary findings.
[2018-05-18] MEDS ORDERED: Potassium Phosphate 30 MMOLE in Sodium Chloride 0.9% 250 ML IV ONE (09:23)
[2018-05-18] MEDS ORDERED: Magnesium Sulfate 2 GM in Sodium Chloride 0.9% 100 ML IVPB ONE (09:23)
[2018-05-18] MEDS ORDERED: Magnesium Sulfate 2 gm/50 ml 2 GM/50 ML BAG IV ONE (10:00)
[2018-05-18] MEDS ORDERED: Pneumococcal 23-Valent Vaccine IM ONE (10:14)
[2018-05-18 11:09] LABS: ALB/GLOB RATIO 1.2 (1.0-2.1); ALBUMIN 3.8 g/dL (3.5-5.0); ALT/SGPT 31 U/L (9-52); AST/SGOT 53 U/L (14-36); BLOOD UREA NITROGEN 8 mg/dl (7-17); CALCIUM 7.9 mg/dL (8.4-10.2); GFR NON-AFRICAN AMERICAN > 60
--- NOTE | 2018-05-18 11:27 | RAD ---
Date of service: 05/18/2018 HISTORY: ams COMPARISON: 07/14/2011 FINDINGS: LUNGS: No active pulmonary disease. PLEURA: No significant pleural effusion identified, no pneumothorax apparent. CARDIOVASCULAR: No aortic atherosclerotic calcification present. Normal cardiac size. No pulmonary vascular congestion. OSSEOUS STRUCTURES: No significant abnormalities. VISUALIZED UPPER ABDOMEN: Normal. OTHER FINDINGS: None. IMPRESSION: No active disease.
--- NOTE | 2018-05-18 11:32 | CP.CCUPN ---
<Zion Bhakta - Last Filed: 05/18/18 12:35> CCU Subjective - Physician Review Subjective (Free Text): 05/18/18 11:01 63 y/o F was seen and examined by bedside. Pt is unconscious, not responsive to verbal or tactile stimuli, incidental intermittent scattered flexion of arms and legs were appreciated. -At ED: Pt was initiated on IV hypertonic solution. Pt seems to have received 2 or 3 doses of Ativan 2mg, at around 00:10 and at 03:00 am. -Upon reviewing her old chart, there is mention of Left carotid endarterectomy in 2013. 05/18/18 12:51 Pt seems more awake, can open her eyes on command. CCU Objective - Vital Signs / Intake & Output Vital Signs (Last 4 hours): Vital Signs Temp Pulse Pulse Resp BP Pulse Ox 05/18/18 10:00 87 19 137/68 100 05/18/18 08:11 88 15 100 05/18/18 07:50 99.4 F 87 20 136/70 05/18/18 07:30 99.4 F 87 20 136/70 100 Intake and Output (Last 8hrs): Intake & Output 05/17/18 05/18/18 05/18/18 22:59 06:59 14:59 Intake Total 600 Output Total 1700 Balance -1100 Weight 65.771 kg Intake: IV 600 Oral 0 Tube Feeding 0 Blood Product 0 Albumin 0 Other 0 Output: Chest Tube Drainage 0 Gastric Amount 0 Drainage 0 Urine 1700 Stool 0 Emesis 0 Other 0 - Physical Exam Physical Exam Limitations: Positive for: Altered Mental Status Head: Positive for: Atraumatic, Normocephalic Pupils: Positive for: PERRL Mouth: Positive for: Moist Mucous Membranes Nose (External): Positive for: Atraumatic Neck: Positive for: Normal Range of Motion, Trachea Midline. Negative for: Meningeal Signs, JVD, Lymphadenopathy Respiratory/Chest: Positive for: Clear to Auscultation. Negative for: Respiratory Distress, Accessory Muscle Use, Wheezes, Decreased Breath Sounds, Rales Cardiovascular: Positive for: Regular Rate and Rhythm, Normal S1, S2 Abdomen: Positive for: Normal Bowel Sounds. Negative for: Distention Upper Extremity: Positive for: Normal Inspection. Negative for: Cyanosis, Edema Lower Extremity: Positive for: Normal Inspection. Negative for: Edema Skin: Positive for: Warm, Dry Psychiatric: Negative for: Alert, Oriented x 3 - Medications Active Medications: Active Medications Generic Name Dose Route Start Last Admin Trade Name Freq PRN Reason Stop Dose Admin Enoxaparin Sodium 40 mg 05/18/18 09:00 Lovenox SC DAILY [facility] Protocol Sodium Chloride 500 mls @ 20 mls/hr 05/17/18 23:45 05/18/18 01:21 Hypertonic Saline 3% IV 05/18/18 23:53 20 mls/hr .Q24H [facility]OMAS Administration Sodium Chloride 1,000 mls @ 125 mls/hr 05/18/18 03:45 Sodium Chloride 0.9% IV 05/18/18 19:44 .Q8H THOMAS Potassium Phosphate 30 mmole/ 260 mls @ 65 mls/hr 05/18/18 09:23 Sodium Chloride IV 05/18/18 13:22 ONCE ONE Insulin Human Lispro 0 units 05/18/18 04:00 05/18/18 06:47 Humalog SC Not Given Q6H [facility] Protocol Lorazepam 2 mg 05/18/18 03:40 Ativan IVP Q6 PRN Seizures, agitation - Patient Studies Lab Studies: Lab Studies 05/18/18 05/18/18 05/18/18 Range/Units 11:01 10:46 06:45 WBC (4.8-10.8) K/uL RBC (3.80-5.20) Mil/uL Hgb (12.0-16.0) g/dL Hct (34.0-47.0) % MCV (81.0-99.0) fl MCH (27.0-31.0) pg MCHC (33.0-37.0) g/dL RDW (11.5-14.5) % Plt Count (130-400) K/uL MPV (7.2-11.7) fl Neut % (Auto) (50.0-75.0) % Lymph % (Auto) (20.0-40.0) % [place] % (Auto) (0.0-10.0) % Eos % (Auto) (0.0-4.0) % Baso % (Auto) (0.0-2.0) % Neut # (Auto) (1.8-7.0) K/uL Lymph # (Auto) (1.0-4.3) K/uL [place] # (Auto) (0.0-0.8) K/uL Eos # (Auto) (0.0-0.7) K/uL Baso # (Auto) (0.0-0.2) K/uL PT (9.8-13.1) Seconds INR APTT (25.6-37.1) Seconds pCO2 (35-45) mm/Hg pO2 (30-55) mm/Hg HCO3 (21-28) mmol/L ABG pH (7.35-7.45) ABG Total CO2 (22-28) mmol/L ABG O2 Saturation (95-98) % ABG O2 Content (15-23) ML/dL ABG Base Excess (-2.0-3.0) mmol/L ABG Hemoglobin (11.7-17.4) g/dL ABG Carboxyhemoglobin (0.5-1.5) % POC ABG HHb (Measured) (0.0-5.0) % ABG Methemoglobin (0.0-3.0) % ABG O2 Capacity (16-24) mL/dL Yousuf Test VBG pH (7.32-7.43) VBG pCO2 (40-60) mmHg VBG HCO3 mmol/L VBG Total CO2 (22-28) mmol/L VBG O2 Sat (Calc) (40-65) % VBG Base Excess (0.0-2.0) mmol/L VBG Potassium (3.6-5.2) mmol/L A-a O2 Difference mm/Hg Hgb O2 Saturation (95.0-98.0) % Glucose (65-105) mg/dL Lactate (0.7-2.1) mmol/L FiO2 % Crit Value Called To Crit Value Called By Crit Value Read Back Blood Gas Notified Time Sodium 127 L (132-148) mmol/l Potassium 3.4 L (3.6-5.0) MMOL/L Chloride 93 L (98-107) mmol/L Carbon Dioxide 24 (22-30) mmol/L Anion Gap 13 (10-20) BUN 8 (7-17) mg/dl Creatinine 0.3 L (0.7-1.2) mg/dl Est GFR ( Amer) > 60 Est GFR (Non-Af Amer) > 60 POC Glucose (mg/dL) 102 133 H (65-110) mg/dL Random Glucose 94 (65-105) mg/dL Serum Osmolality (272-300) mosm/kg Calcium 7.9 L (8.4-10.2) mg/dL Phosphorus 1.9 L (2.5-4.5) mg/dl Magnesium 1.7 (1.6-2.3) MG/DL Total Bilirubin 1.3 (0.2-1.3) mg/dl AST 53 H D (14-36) U/L ALT 31 (9-52) U/L Alkaline Phosphatase 71 (38-126) U/L Ammonia (11-51) umo/L Troponin I (0.00-0.120) ng/mL Total Protein 6.9 (6.3-8.2) G/DL Albumin 3.8 (3.5-5.0) g/dL Globulin 3.1 (2.2-3.9) gm/dL Albumin/Globulin Ratio 1.2 (1.0-2.1) Thyroxine (T4) (5.5-11.0) ug/dl Total T3 (1.49-2.60) nmol/L TSH 3rd Generation (0.46-4.68) mIU/ML Venous Blood Potassium (3.6-5.2) mmol/L Urine Osmolality (300-1000) mosm/kg Ur Random Sodium meq/L Ur Random Potassium mmol/L Urine Opiates Screen (NEGATIVE) Urine Methadone Screen (NEGATIVE) Ur Barbiturates Screen (NEGATIVE) Ur Phencyclidine Scrn (NEGATIVE) Ur Amphetamines Screen (NEGATIVE) U Benzodiazepines Scrn (NEGATIVE) U Oth Cocaine Metabols (NEGATIVE) U Cannabinoids Screen (NEGATIVE) Alcohol, Quantitative (0-10) mg/dl Blood Type Blood Type Confirm Antibody Screen BBK History Checked 05/18/18 05/18/18 05/18/18 Range/Units 06:45 06:30 04:35 WBC 17.8 H (4.8-10.8) K/uL RBC 4.05 (3.80-5.20) Mil/uL Hgb 12.2 (12.0-16.0) g/dL Hct 35.7 (34.0-47.0) % MCV 88.3 D (81.0-99.0) fl MCH 30.2 (27.0-31.0) pg MCHC 34.2 (33.0-37.0) g/dL RDW 13.0 (11.5-14.5) % Plt Count 287 (130-400) K/uL MPV (7.2-11.7) fl Neut % (Auto) (50.0-75.0) % Lymph % (Auto) (20.0-40.0) % [place] % (Auto) (0.0-10.0) % Eos % (Auto) (0.0-4.0) % Baso % (Auto) (0.0-2.0) % Neut # (Auto) (1.8-7.0) K/uL Lymph # (Auto) (1.0-4.3) K/uL [place] # (Auto) (0.0-0.8) K/uL Eos # (Auto) (0.0-0.7) K/uL Baso # (Auto) (0.0-0.2) K/uL PT (9.8-13.1) Seconds INR APTT (25.6-37.1) Seconds pCO2 (35-45) mm/Hg pO2 (30-55) mm/Hg HCO3 (21-28) mmol/L ABG pH (7.35-7.45) ABG Total CO2 (22-28) mmol/L ABG O2 Saturation (95-98) % ABG O2 Content (15-23) ML/dL ABG Base Excess (-2.0-3.0) mmol/L ABG Hemoglobin (11.7-17.4) g/dL ABG Carboxyhemoglobin (0.5-1.5) % POC ABG HHb (Measured) (0.0-5.0) % ABG Methemoglobin (0.0-3.0) % ABG O2 Capacity (16-24) mL/dL Yousuf Test VBG pH (7.32-7.43) VBG pCO2 (40-60) mmHg VBG HCO3 mmol/L VBG Total CO2 (22-28) mmol/L VBG O2 Sat (Calc) (40-65) % VBG Base Excess (0.0-2.0) mmol/L VBG Potassium (3.6-5.2) mmol/L A-a O2 Difference mm/Hg Hgb O2 Saturation (95.0-98.0) % Glucose (65-105) mg/dL Lactate (0.7-2.1) mmol/L FiO2 % Crit Value Called To Crit Value Called By Crit Value Read Back Blood Gas Notified Time Sodium (132-148) mmol/l Potassium (3.6-5.0) MMOL/L Chloride (98-107) mmol/L Carbon Dioxide (22-30) mmol/L Anion Gap (10-20) BUN (7-17) mg/dl Creatinine (0.7-1.2) mg/dl Est GFR ( Amer) Est GFR (Non-Af Amer) POC Glucose (mg/dL) 164 H (65-110) mg/dL Random Glucose (65-105) mg/dL Serum Osmolality (272-300) mosm/kg Calcium (8.4-10.2) mg/dL Phosphorus (2.5-4.5) mg/dl Magnesium (1.6-2.3) MG/DL Total Bilirubin (0.2-1.3) mg/dl AST (14-36) U/L ALT (9-52) U/L Alkaline Phosphatase (38-126) U/L Ammonia (11-51) umo/L Troponin I (0.00-0.120) ng/mL Total Protein (6.3-8.2) G/DL Albumin (3.5-5.0) g/dL Globulin (2.2-3.9) gm/dL Albumin/Globulin Ratio (1.0-2.1) Thyroxine (T4) (5.5-11.0) ug/dl Total T3 (1.49-2.60) nmol/L TSH 3rd Generation (0.46-4.68) mIU/ML Venous Blood Potassium (3.6-5.2) mmol/L Urine Osmolality (300-1000) mosm/kg Ur Random Sodium meq/L Ur Random Potassium mmol/L Urine Opiates Screen (NEGATIVE) Urine Methadone Screen (NEGATIVE) Ur Barbiturates Screen (NEGATIVE) Ur Phencyclidine Scrn (NEGATIVE) Ur Amphetamines Screen (NEGATIVE) U Benzodiazepines Scrn (NEGATIVE) U Oth Cocaine Metabols (NEGATIVE) U Cannabinoids Screen (NEGATIVE) Alcohol, Quantitative (0-10) mg/dl Blood Type Blood Type Confirm O POSITIVE Antibody Screen BBK History Checked 05/18/18 05/18/18 05/18/18 Range/Units 04:12 04:12 04:12 WBC (4.8-10.8) K/uL RBC (3.80-5.20) Mil/uL Hgb (12.0-16.0) g/dL Hct (34.0-47.0) % MCV (81.0-99.0) fl MCH (27.0-31.0) pg MCHC (33.0-37.0) g/dL RDW (11.5-14.5) % Plt Count (130-400) K/uL MPV (7.2-11.7) fl Neut % (Auto) (50.0-75.0) % Lymph % (Auto) (20.0-40.0) % [place] % (Auto) (0.0-10.0) % Eos % (Auto) (0.0-4.0) % Baso % (Auto) (0.0-2.0) % Neut # (Auto) (1.8-7.0) K/uL Lymph # (Auto) (1.0-4.3) K/uL [place] # (Auto) (0.0-0.8) K/uL Eos # (Auto) (0.0-0.7) K/uL Baso # (Auto) (0.0-0.2) K/uL PT (9.8-13.1) Seconds INR APTT (25.6-37.1) Seconds pCO2 (35-45) mm/Hg pO2 (30-55) mm/Hg HCO3 (21-28) mmol/L ABG pH (7.35-7.45) ABG Total CO2 (22-28) mmol/L ABG O2 Saturation (95-98) % ABG O2 Content (15-23) ML/dL ABG Base Excess (-2.0-3.0) mmol/L ABG Hemoglobin (11.7-17.4) g/dL ABG Carboxyhemoglobin (0.5-1.5) % POC ABG HHb (Measured) (0.0-5.0) % ABG Methemoglobin (0.0-3.0) % ABG O2 Capacity (16-24) mL/dL Yousuf Test VBG pH (7.32-7.43) VBG pCO2 (40-60) mmHg VBG HCO3 mmol/L VBG Total CO2 (22-28) mmol/L VBG O2 Sat (Calc) (40-65) % VBG Base Excess (0.0-2.0) mmol/L VBG Potassium (3.6-5.2) mmol/L A-a O2 Difference mm/Hg Hgb O2 Saturation (95.0-98.0) % Glucose (65-105) mg/dL Lactate (0.7-2.1) mmol/L FiO2 % Crit Value Called To Crit Value Called By Crit Value Read Back Blood Gas Notified Time Sodium 123 L (132-148) mmol/l Potassium 3.4 L (3.6-5.0) MMOL/L Chloride 87 L (98-107) mmol/L Carbon Dioxide 25 (22-30) mmol/L Anion Gap 14 (10-20) BUN 11 (7-17) mg/dl Creatinine 0.3 L (0.7-1.2) mg/dl Est GFR ( Amer) > 60 Est GFR (Non-Af Amer) > 60 POC Glucose (mg/dL) (65-110) mg/dL Random Glucose 204 H (65-105) mg/dL Serum Osmolality 258 L (272-300) mosm/kg Calcium 7.3 L (8.4-10.2) mg/dL Phosphorus (2.5-4.5) mg/dl Magnesium (1.6-2.3) MG/DL Total Bilirubin (0.2-1.3) mg/dl AST (14-36) U/L ALT (9-52) U/L Alkaline Phosphatase (38-126) U/L Ammonia (11-51) umo/L Troponin I (0.00-0.120) ng/mL Total Protein (6.3-8.2) G/DL Albumin (3.5-5.0) g/dL Globulin (2.2-3.9) gm/dL Albumin/Globulin Ratio (1.0-2.1) Thyroxine (T4) 7.16 (5.5-11.0) ug/dl Total T3 0.804 L (1.49-2.60) nmol/L TSH 3rd Generation 0.77 (0.46-4.68) mIU/ML Venous Blood Potassium (3.6-5.2) mmol/L Urine Osmolality 623 (300-1000) mosm/kg Ur Random Sodium 139 meq/L Ur Random Potassium 41.4 mmol/L Urine Opiates Screen (NEGATIVE) Urine Methadone Screen (NEGATIVE) Ur Barbiturates Screen (NEGATIVE) Ur Phencyclidine Scrn (NEGATIVE) Ur Amphetamines Screen (NEGATIVE) U Benzodiazepines Scrn (NEGATIVE) U Oth Cocaine Metabols (NEGATIVE) U Cannabinoids Screen (NEGATIVE) Alcohol, Quantitative (0-10) mg/dl Blood Type Blood Type Confirm Antibody Screen BBK History Checked 05/18/18 05/18/18 05/18/18 Range/Units 04:01 01:25 01:02 WBC (4.8-10.8) K/uL RBC (3.80-5.20) Mil/uL Hgb (12.0-16.0) g/dL Hct (34.0-47.0) % MCV (81.0-99.0) fl MCH (27.0-31.0) pg MCHC (33.0-37.0) g/dL RDW (11.5-14.5) % Plt Count (130-400) K/uL MPV (7.2-11.7) fl Neut % (Auto) (50.0-75.0) % Lymph % (Auto) (20.0-40.0) % [place] % (Auto) (0.0-10.0) % Eos % (Auto) (0.0-4.0) % Baso % (Auto) (0.0-2.0) % Neut # (Auto) (1.8-7.0) K/uL Lymph # (Auto) (1.0-4.3) K/uL [place] # (Auto) (0.0-0.8) K/uL Eos # (Auto) (0.0-0.7) K/uL Baso # (Auto) (0.0-0.2) K/uL PT (9.8-13.1) Seconds INR APTT (25.6-37.1) Seconds pCO2 38 (35-45) mm/Hg pO2 147 H (30-55) mm/Hg HCO3 26.2 (21-28) mmol/L ABG pH 7.44 (7.35-7.45) ABG Total CO2 27.0 (22-28) mmol/L ABG O2 Saturation 100.2 H (95-98) % ABG O2 Content 16.9 (15-23) ML/dL ABG Base Excess 1.7 (-2.0-3.0) mmol/L ABG Hemoglobin 12.3 (11.7-17.4) g/dL ABG Carboxyhemoglobin 1.8 H (0.5-1.5) % POC ABG HHb (Measured) -0.2 L (0.0-5.0) % ABG Methemoglobin 2.5 (0.0-3.0) % ABG O2 Capacity 16.9 (16-24) mL/dL Yousuf Test Yes VBG pH (7.32-7.43) VBG pCO2 (40-60) mmHg VBG HCO3 mmol/L VBG Total CO2 (22-28) mmol/L VBG O2 Sat (Calc) (40-65) % VBG Base Excess (0.0-2.0) mmol/L VBG Potassium (3.6-5.2) mmol/L A-a O2 Difference 34.0 mm/Hg Hgb O2 Saturation 96.0 (95.0-98.0) % Glucose (65-105) mg/dL Lactate (0.7-2.1) mmol/L FiO2 32.0 % Crit Value Called To Dr emery siddiqi Crit Value Called By Devon Crit Value Read Back Y Blood Gas Notified Time 402 Sodium 120 L* (132-148) mmol/l Potassium 3.8 (3.6-5.0) MMOL/L Chloride 85 L (98-107) mmol/L Carbon Dioxide 24 (22-30) mmol/L Anion Gap 15 (10-20) BUN 12 (7-17) mg/dl Creatinine 0.3 L (0.7-1.2) mg/dl Est GFR ( Amer) > 60 Est GFR (Non-Af Amer) > 60 POC Glucose (mg/dL) (65-110) mg/dL Random Glucose 237 H (65-105) mg/dL Serum Osmolality (272-300) mosm/kg Calcium 7.1 L (8.4-10.2) mg/dL Phosphorus 2.0 L (2.5-4.5) mg/dl Magnesium 1.4 L (1.6-2.3) MG/DL Total Bilirubin (0.2-1.3) mg/dl AST (14-36) U/L ALT (9-52) U/L Alkaline Phosphatase (38-126) U/L Ammonia (11-51) umo/L Troponin I (0.00-0.120) ng/mL Total Protein (6.3-8.2) G/DL Albumin (3.5-5.0) g/dL Globulin (2.2-3.9) gm/dL Albumin/Globulin Ratio (1.0-2.1) Thyroxine (T4) (5.5-11.0) ug/dl Total T3 (1.49-2.60) nmol/L TSH 3rd Generation (0.46-4.68) mIU/ML Venous Blood Potassium (3.6-5.2) mmol/L Urine Osmolality (300-1000) mosm/kg Ur Random Sodium meq/L Ur Random Potassium mmol/L Urine Opiates Screen Negative (NEGATIVE) Urine Methadone Screen Negative (NEGATIVE) Ur Barbiturates Screen Negative (NEGATIVE) Ur Phencyclidine Scrn Negative (NEGATIVE) Ur Amphetamines Screen Negative (NEGATIVE) U Benzodiazepines Scrn Negative (NEGATIVE) U Oth Cocaine Metabols Negative (NEGATIVE) U Cannabinoids Screen Negative (NEGATIVE) Alcohol, Quantitative (0-10) mg/dl Blood Type Blood Type Confirm Antibody Screen BBK History Checked 05/18/18 05/17/18 05/17/18 Range/Units 00:27 23:45 23:40 WBC (4.8-10.8) K/uL RBC (3.80-5.20) Mil/uL Hgb (12.0-16.0) g/dL Hct (34.0-47.0) % MCV (81.0-99.0) fl MCH (27.0-31.0) pg MCHC (33.0-37.0) g/dL RDW (11.5-14.5) % Plt Count (130-400) K/uL MPV (7.2-11.7) fl Neut % (Auto) (50.0-75.0) % Lymph % (Auto) (20.0-40.0) % [place] % (Auto) (0.0-10.0) % Eos % (Auto) (0.0-4.0) % Baso % (Auto) (0.0-2.0) % Neut # (Auto) (1.8-7.0) K/uL Lymph # (Auto) (1.0-4.3) K/uL [place] # (Auto) (0.0-0.8) K/uL Eos # (Auto) (0.0-0.7) K/uL Baso # (Auto) (0.0-0.2) K/uL PT (9.8-13.1) Seconds INR APTT (25.6-37.1) Seconds pCO2 (35-45) mm/Hg pO2 47 (30-55) mm/Hg HCO3 (21-28) mmol/L ABG pH (7.35-7.45) ABG Total CO2 (22-28) mmol/L ABG O2 Saturation (95-98) % ABG O2 Content (15-23) ML/dL ABG Base Excess (-2.0-3.0) mmol/L ABG Hemoglobin (11.7-17.4) g/dL ABG Carboxyhemoglobin (0.5-1.5) % POC ABG HHb (Measured) (0.0-5.0) % ABG Methemoglobin (0.0-3.0) % ABG O2 Capacity (16-24) mL/dL Yousuf Test VBG pH 7.22 L (7.32-7.43) VBG pCO2 47 (40-60) mmHg VBG HCO3 17.8 mmol/L VBG Total CO2 20.6 L (22-28) mmol/L VBG O2 Sat (Calc) 82.2 H (40-65) % VBG Base Excess -8.5 L (0.0-2.0) mmol/L VBG Potassium 3.2 L (3.6-5.2) mmol/L A-a O2 Difference mm/Hg Hgb O2 Saturation (95.0-98.0) % Glucose 291 H (65-105) mg/dL Lactate 9.8 H* (0.7-2.1) mmol/L FiO2 21.0 % Crit Value Called To Dr cornel garcia Crit Value Called By Devon Crit Value Read Back Y Blood Gas Notified Time 2349 Sodium 119.0 L* (132-148) mmol/l Potassium (3.6-5.0) MMOL/L Chloride 81.0 L (98-107) mmol/L Carbon Dioxide (22-30) mmol/L Anion Gap (10-20) BUN (7-17) mg/dl Creatinine (0.7-1.2) mg/dl Est GFR ( Amer) Est GFR (Non-Af Amer) POC Glucose (mg/dL) (65-110) mg/dL Random Glucose (65-105) mg/dL Serum Osmolality (272-300) mosm/kg Calcium (8.4-10.2) mg/dL Phosphorus (2.5-4.5) mg/dl Magnesium (1.6-2.3) MG/DL Total Bilirubin (0.2-1.3) mg/dl AST (14-36) U/L ALT (9-52) U/L Alkaline Phosphatase (38-126) U/L Ammonia 36 (11-51) umo/L Troponin I (0.00-0.120) ng/mL Total Protein (6.3-8.2) G/DL Albumin (3.5-5.0) g/dL Globulin (2.2-3.9) gm/dL Albumin/Globulin Ratio (1.0-2.1) Thyroxine (T4) (5.5-11.0) ug/dl Total T3 (1.49-2.60) nmol/L TSH 3rd Generation (0.46-4.68) mIU/ML Venous Blood Potassium 3.2 L (3.6-5.2) mmol/L Urine Osmolality (300-1000) mosm/kg Ur Random Sodium meq/L Ur Random Potassium mmol/L Urine Opiates Screen (NEGATIVE) Urine Methadone Screen (NEGATIVE) Ur Barbiturates Screen (NEGATIVE) Ur Phencyclidine Scrn (NEGATIVE) Ur Amphetamines Screen (NEGATIVE) U Benzodiazepines Scrn (NEGATIVE) U Oth Cocaine Metabols (NEGATIVE) U Cannabinoids Screen (NEGATIVE) Alcohol, Quantitative (0-10) mg/dl Blood Type O POSITIVE Blood Type Confirm Antibody Screen Negative BBK History Checked No verified bt 05/17/18 05/17/18 05/17/18 Range/Units 23:40 23:40 23:40 WBC 20.0 H D (4.8-10.8) K/uL RBC 4.26 (3.80-5.20) Mil/uL Hgb 12.6 (12.0-16.0) g/dL Hct 38.5 (34.0-47.0) % MCV 90.4 D (81.0-99.0) fl MCH 29.7 (27.0-31.0) pg MCHC 32.8 L (33.0-37.0) g/dL RDW 13.4 (11.5-14.5) % Plt Count 330 (130-400) K/uL MPV 8.3 (7.2-11.7) fl Neut % (Auto) 71.7 (50.0-75.0) % Lymph % (Auto) 20.4 (20.0-40.0) % [place] % (Auto) 6.8 (0.0-10.0) % Eos % (Auto) 0.6 (0.0-4.0) % Baso % (Auto) 0.5 (0.0-2.0) % Neut # (Auto) 14.3 H (1.8-7.0) K/uL Lymph # (Auto) 4.1 (1.0-4.3) K/uL [place] # (Auto) 1.4 H (0.0-0.8) K/uL Eos # (Auto) 0.1 (0.0-0.7) K/uL Baso # (Auto) 0.1 (0.0-0.2) K/uL PT 10.5 (9.8-13.1) Seconds INR 0.9 APTT 27.1 (25.6-37.1) Seconds pCO2 (35-45) mm/Hg pO2 (30-55) mm/Hg HCO3 (21-28) mmol/L ABG pH (7.35-7.45) ABG Total CO2 (22-28) mmol/L ABG O2 Saturation (95-98) % ABG O2 Content (15-23) ML/dL ABG Base Excess (-2.0-3.0) mmol/L ABG Hemoglobin (11.7-17.4) g/dL ABG Carboxyhemoglobin (0.5-1.5) % POC ABG HHb (Measured) (0.0-5.0) % ABG Methemoglobin (0.0-3.0) % ABG O2 Capacity (16-24) mL/dL Yousuf Test VBG pH (7.32-7.43) VBG pCO2 (40-60) mmHg VBG HCO3 mmol/L VBG Total CO2 (22-28) mmol/L VBG O2 Sat (Calc) (40-65) % VBG Base Excess (0.0-2.0) mmol/L VBG Potassium (3.6-5.2) mmol/L A-a O2 Difference mm/Hg Hgb O2 Saturation (95.0-98.0) % Glucose (65-105) mg/dL Lactate (0.7-2.1) mmol/L FiO2 % Crit Value Called To Crit Value Called By Crit Value Read Back Blood Gas Notified Time Sodium 122 L (132-148) mmol/l Potassium 3.3 L (3.6-5.0) MMOL/L Chloride 82 L (98-107) mmol/L Carbon Dioxide 20 L (22-30) mmol/L Anion Gap 23 H (10-20) BUN 11 (7-17) mg/dl Creatinine 0.4 L (0.7-1.2) mg/dl Est GFR ( Amer) > 60 Est GFR (Non-Af Amer) > 60 POC Glucose (mg/dL) (65-110) mg/dL Random Glucose 273 H (65-105) mg/dL Serum Osmolality (272-300) mosm/kg Calcium 8.1 L (8.4-10.2) mg/dL Phosphorus 2.3 L (2.5-4.5) mg/dl Magnesium 1.5 L (1.6-2.3) MG/DL Total Bilirubin 1.2 (0.2-1.3) mg/dl AST 41 H D (14-36) U/L ALT 25 (9-52) U/L Alkaline Phosphatase 102 (38-126) U/L Ammonia (11-51) umo/L Troponin I < 0.0120 (0.00-0.120) ng/mL Total Protein 7.8 (6.3-8.2) G/DL Albumin 4.6 (3.5-5.0) g/dL Globulin 3.2 (2.2-3.9) gm/dL Albumin/Globulin Ratio 1.5 (1.0-2.1) Thyroxine (T4) (5.5-11.0) ug/dl Total T3 (1.49-2.60) nmol/L TSH 3rd Generation (0.46-4.68) mIU/ML Venous Blood Potassium (3.6-5.2) mmol/L Urine Osmolality (300-1000) mosm/kg Ur Random Sodium meq/L Ur Random Potassium mmol/L Urine Opiates Screen (NEGATIVE) Urine Methadone Screen (NEGATIVE) Ur Barbiturates Screen (NEGATIVE) Ur Phencyclidine Scrn (NEGATIVE) Ur Amphetamines Screen (NEGATIVE) U Benzodiazepines Scrn (NEGATIVE) U Oth Cocaine Metabols (NEGATIVE) U Cannabinoids Screen (NEGATIVE) Alcohol, Quantitative < 10 (0-10) mg/dl Blood Type Blood Type Confirm Antibody Screen BBK History Checked 05/17/18 Range/Units 23:23 WBC (4.8-10.8) K/uL RBC (3.80-5.20) Mil/uL Hgb (12.0-16.0) g/dL Hct (34.0-47.0) % MCV (81.0-99.0) fl MCH (27.0-31.0) pg MCHC (33.0-37.0) g/dL RDW (11.5-14.5) % Plt Count (130-400) K/uL MPV (7.2-11.7) fl Neut % (Auto) (50.0-75.0) % Lymph % (Auto) (20.0-40.0) % [place] % (Auto) (0.0-10.0) % Eos % (Auto) (0.0-4.0) % Baso % (Auto) (0.0-2.0) % Neut # (Auto) (1.8-7.0) K/uL Lymph # (Auto) (1.0-4.3) K/uL [place] # (Auto) (0.0-0.8) K/uL Eos # (Auto) (0.0-0.7) K/uL Baso # (Auto) (0.0-0.2) K/uL PT (9.8-13.1) Seconds INR APTT (25.6-37.1) Seconds pCO2 (35-45) mm/Hg pO2 (30-55) mm/Hg HCO3 (21-28) mmol/L ABG pH (7.35-7.45) ABG Total CO2 (22-28) mmol/L ABG O2 Saturation (95-98) % ABG O2 Content (15-23) ML/dL ABG Base Excess (-2.0-3.0) mmol/L ABG Hemoglobin (11.7-17.4) g/dL ABG Carboxyhemoglobin (0.5-1.5) % POC ABG HHb (Measured) (0.0-5.0) % ABG Methemoglobin (0.0-3.0) % ABG O2 Capacity (16-24) mL/dL Yousuf Test VBG pH (7.32-7.43) VBG pCO2 (40-60) mmHg VBG HCO3 mmol/L VBG Total CO2 (22-28) mmol/L VBG O2 Sat (Calc) (40-65) % VBG Base Excess (0.0-2.0) mmol/L VBG Potassium (3.6-5.2) mmol/L A-a O2 Difference mm/Hg Hgb O2 Saturation (95.0-98.0) % Glucose (65-105) mg/dL Lactate (0.7-2.1) mmol/L FiO2 % Crit Value Called To Crit Value Called By Crit Value Read Back Blood Gas Notified Time Sodium (132-148) mmol/l Potassium (3.6-5.0) MMOL/L Chloride (98-107) mmol/L Carbon Dioxide (22-30) mmol/L Anion Gap (10-20) BUN (7-17) mg/dl Creatinine (0.7-1.2) mg/dl Est GFR ( Amer) Est GFR (Non-Af Amer) POC Glucose (mg/dL) 238 H (65-110) mg/dL Random Glucose (65-105) mg/dL Serum Osmolality (272-300) mosm/kg Calcium (8.4-10.2) mg/dL Phosphorus (2.5-4.5) mg/dl Magnesium (1.6-2.3) MG/DL Total Bilirubin (0.2-1.3) mg/dl AST (14-36) U/L ALT (9-52) U/L Alkaline Phosphatase (38-126) U/L Ammonia (11-51) umo/L Troponin I (0.00-0.120) ng/mL Total Protein (6.3-8.2) G/DL Albumin (3.5-5.0) g/dL Globulin (2.2-3.9) gm/dL Albumin/Globulin Ratio (1.0-2.1) Thyroxine (T4) (5.5-11.0) ug/dl Total T3 (1.49-2.60) nmol/L TSH 3rd Generation (0.46-4.68) mIU/ML Venous Blood Potassium (3.6-5.2) mmol/L Urine Osmolality (300-1000) mosm/kg Ur Random Sodium meq/L Ur Random Potassium mmol/L Urine Opiates Screen (NEGATIVE) Urine Methadone Screen (NEGATIVE) Ur Barbiturates Screen (NEGATIVE) Ur Phencyclidine Scrn (NEGATIVE) Ur Amphetamines Screen (NEGATIVE) U Benzodiazepines Scrn (NEGATIVE) U Oth Cocaine Metabols (NEGATIVE) U Cannabinoids Screen (NEGATIVE) Alcohol, Quantitative (0-10) mg/dl Blood Type Blood Type Confirm Antibody Screen BBK History Checked Laboratory Results - last 24 hr 05/17/18 05/17/18 05/17/18 23:23 23:40 23:40 WBC 20.0 H D RBC 4.26 Hgb 12.6 Hct 38.5 MCV 90.4 D MCH 29.7 MCHC 32.8 L RDW 13.4 Plt Count 330 MPV 8.3 Neut % (Auto) 71.7 Lymph % (Auto) 20.4 [place] % (Auto) 6.8 Eos % (Auto) 0.6 Baso % (Auto) 0.5 Neut # (Auto) 14.3 H Lymph # (Auto) 4.1 [place] # (Auto) 1.4 H Eos # (Auto) 0.1 Baso # (Auto) 0.1 PT INR APTT pCO2 pO2 HCO3 ABG pH ABG Total CO2 ABG O2 Saturation ABG O2 Content ABG Base Excess ABG Hemoglobin ABG Carboxyhemoglobin POC ABG HHb (Measured) ABG Methemoglobin ABG O2 Capacity Yousuf Test VBG pH VBG pCO2 VBG HCO3 VBG Total CO2 VBG O2 Sat (Calc) VBG Base Excess VBG Potassium A-a O2 Difference Hgb O2 Saturation Glucose Lactate FiO2 Crit Value Called To Crit Value Called By Crit Value Read Back Blood Gas Notified Time Sodium 122 L Potassium 3.3 L Chloride 82 L Carbon Dioxide 20 L Anion Gap 23 H BUN 11 Creatinine 0.4 L Est GFR ( Amer) > 60 Est GFR (Non-Af Amer) > 60 POC Glucose (mg/dL) 238 H Random Glucose 273 H Serum Osmolality Calcium 8.1 L Phosphorus 2.3 L Magnesium 1.5 L Total Bilirubin 1.2 AST 41 H D ALT 25 Alkaline Phosphatase 102 Ammonia Troponin I < 0.0120 Total Protein 7.8 Albumin 4.6 Globulin 3.2 Albumin/Globulin Ratio 1.5 Thyroxine (T4) Total T3 TSH 3rd Generation Venous Blood Potassium Urine Osmolality Ur Random Sodium Ur Random Potassium Urine Opiates Screen Urine Methadone Screen Ur Barbiturates Screen Ur Phencyclidine Scrn Ur Amphetamines Screen U Benzodiazepines Scrn U Oth Cocaine Metabols U Cannabinoids Screen Alcohol, Quantitative < 10 Blood Type Blood Type Confirm Antibody Screen BBK History Checked 05/17/18 05/17/18 05/17/18 23:40 23:40 23:45 WBC RBC Hgb Hct MCV MCH MCHC RDW Plt Count MPV Neut % (Auto) Lymph % (Auto) [place] % (Auto) Eos % (Auto) Baso % (Auto) Neut # (Auto) Lymph # (Auto) [place] # (Auto) Eos # (Auto) Baso # (Auto) PT 10.5 INR 0.9 APTT 27.1 pCO2 pO2 47 HCO3 ABG pH ABG Total CO2 ABG O2 Saturation ABG O2 Content ABG Base Excess ABG Hemoglobin ABG Carboxyhemoglobin POC ABG HHb (Measured) ABG Methemoglobin ABG O2 Capacity Yousuf Test VBG pH 7.22 L VBG pCO2 47 VBG HCO3 17.8 VBG Total CO2 20.6 L VBG O2 Sat (Calc) 82.2 H VBG Base Excess -8.5 L VBG Potassium 3.2 L A-a O2 Difference Hgb O2 Saturation Glucose 291 H Lactate 9.8 H* FiO2 21.0 Crit Value Called To Dr cornel garcia Crit Value Called By Devon Crit Value Read Back Y Blood Gas Notified Time 2349 Sodium 119.0 L* Potassium Chloride 81.0 L Carbon Dioxide Anion Gap BUN Creatinine Est GFR ( Amer) Est GFR (Non-Af Amer) POC Glucose (mg/dL) Random Glucose Serum Osmolality Calcium Phosphorus Magnesium Total Bilirubin AST ALT Alkaline Phosphatase Ammonia Troponin I Total Protein Albumin Globulin Albumin/Globulin Ratio Thyroxine (T4) Total T3 TSH 3rd Generation Venous Blood Potassium 3.2 L Urine Osmolality Ur Random Sodium Ur Random Potassium Urine Opiates Screen Urine Methadone Screen Ur Barbiturates Screen Ur Phencyclidine Scrn Ur Amphetamines Screen U Benzodiazepines Scrn U Oth Cocaine Metabols U Cannabinoids Screen Alcohol, Quantitative Blood Type O POSITIVE Blood Type Confirm Antibody Screen Negative BBK History Checked No verified bt 05/18/18 05/18/18 05/18/18 00:27 01:02 01:25 WBC RBC Hgb Hct MCV MCH MCHC RDW Plt Count MPV Neut % (Auto) Lymph % (Auto) [place] % (Auto) Eos % (Auto) Baso % (Auto) Neut # (Auto) Lymph # (Auto) [place] # (Auto) Eos # (Auto) Baso # (Auto) PT INR APTT pCO2 pO2 HCO3 ABG pH ABG Total CO2 ABG O2 Saturation ABG O2 Content ABG Base Excess ABG Hemoglobin ABG Carboxyhemoglobin POC ABG HHb (Measured) ABG Methemoglobin ABG O2 Capacity Yousuf Test VBG pH VBG pCO2 VBG HCO3 VBG Total CO2 VBG O2 Sat (Calc) VBG Base Excess VBG Potassium A-a O2 Difference Hgb O2 Saturation Glucose Lactate FiO2 Crit Value Called To Crit Value Called By Crit Value Read Back Blood Gas Notified Time Sodium 120 L* Potassium 3.8 Chloride 85 L Carbon Dioxide 24 Anion Gap 15 BUN 12 Creatinine 0.3 L Est GFR ( Amer) > 60 Est GFR (Non-Af Amer) > 60 POC Glucose (mg/dL) Random Glucose 237 H Serum Osmolality Calcium 7.1 L Phosphorus 2.0 L Magnesium 1.4 L Total Bilirubin AST ALT Alkaline Phosphatase Ammonia 36 Troponin I Total Protein Albumin Globulin Albumin/Globulin Ratio Thyroxine (T4) Total T3 TSH 3rd Generation Venous Blood Potassium Urine Osmolality Ur Random Sodium Ur Random Potassium Urine Opiates Screen Negative Urine Methadone Screen Negative Ur Barbiturates Screen Negative Ur Phencyclidine Scrn Negative Ur Amphetamines Screen Negative U Benzodiazepines Scrn Negative U Oth Cocaine Metabols Negative U Cannabinoids Screen Negative Alcohol, Quantitative Blood Type Blood Type Confirm Antibody Screen BBK History Checked 05/18/18 05/18/18 05/18/18 04:01 04:12 04:12 WBC RBC Hgb Hct MCV MCH MCHC RDW Plt Count MPV Neut % (Auto) Lymph % (Auto) [place] % (Auto) Eos % (Auto) Baso % (Auto) Neut # (Auto) Lymph # (Auto) [place] # (Auto) Eos # (Auto) Baso # (Auto) PT INR APTT pCO2 38 pO2 147 H HCO3 26.2 ABG pH 7.44 ABG Total CO2 27.0 ABG O2 Saturation 100.2 H ABG O2 Content 16.9 ABG Base Excess 1.7 ABG Hemoglobin 12.3 ABG Carboxyhemoglobin 1.8 H POC ABG HHb (Measured) -0.2 L ABG Methemoglobin 2.5 ABG O2 Capacity 16.9 Yousuf Test Yes VBG pH VBG pCO2 VBG HCO3 VBG Total CO2 VBG O2 Sat (Calc) VBG Base Excess VBG Potassium A-a O2 Difference 34.0 Hgb O2 Saturation 96.0 Glucose Lactate FiO2 32.0 Crit Value Called To Dr emery siddiqi Crit Value Called By Devon Crit Value Read Back Y Blood Gas Notified Time 402 Sodium 123 L Potassium 3.4 L Chloride 87 L Carbon Dioxide 25 Anion Gap 14 BUN 11 Creatinine 0.3 L Est GFR ( Amer) > 60 Est GFR (Non-Af Amer) > 60 POC Glucose (mg/dL) Random Glucose 204 H Serum Osmolality Calcium 7.3 L Phosphorus Magnesium Total Bilirubin AST ALT Alkaline Phosphatase Ammonia Troponin I Total Protein Albumin Globulin Albumin/Globulin Ratio Thyroxine (T4) 7.16 Total T3 0.804 L TSH 3rd Generation 0.77 Venous Blood Potassium Urine Osmolality 623 Ur Random Sodium 139 Ur Random Potassium 41.4 Urine Opiates Screen Urine Methadone Screen Ur Barbiturates Screen Ur Phencyclidine Scrn Ur Amphetamines Screen U Benzodiazepines Scrn U Oth Cocaine Metabols U Cannabinoids Screen Alcohol, Quantitative Blood Type Blood Type Confirm Antibody Screen BBK History Checked 05/18/18 05/18/18 05/18/18 04:12 04:35 06:30 WBC 17.8 H RBC 4.05 Hgb 12.2 Hct 35.7 MCV 88.3 D MCH 30.2 MCHC 34.2 RDW 13.0 Plt Count 287 MPV Neut % (Auto) Lymph % (Auto) [place] % (Auto) Eos % (Auto) Baso % (Auto) Neut # (Auto) Lymph # (Auto) [place] # (Auto) Eos # (Auto) Baso # (Auto) PT INR APTT pCO2 pO2 HCO3 ABG pH ABG Total CO2 ABG O2 Saturation ABG O2 Content ABG Base Excess ABG Hemoglobin ABG Carboxyhemoglobin POC ABG HHb (Measured) ABG Methemoglobin ABG O2 Capacity Yousuf Test VBG pH VBG pCO2 VBG HCO3 VBG Total CO2 VBG O2 Sat (Calc) VBG Base Excess VBG Potassium A-a O2 Difference Hgb O2 Saturation Glucose Lactate FiO2 Crit Value Called To Crit Value Called By Crit Value Read Back Blood Gas Notified Time Sodium Potassium Chloride Carbon Dioxide Anion Gap BUN Creatinine Est GFR ( Amer) Est GFR (Non-Af Amer) POC Glucose (mg/dL) 164 H Random Glucose Serum Osmolality 258 L Calcium Phosphorus Magnesium Total Bilirubin AST ALT Alkaline Phosphatase Ammonia Troponin I Total Protein Albumin Globulin Albumin/Globulin Ratio Thyroxine (T4) Total T3 TSH 3rd Generation Venous Blood Potassium Urine Osmolality Ur Random Sodium Ur Random Potassium Urine Opiates Screen Urine Methadone Screen Ur Barbiturates Screen Ur Phencyclidine Scrn Ur Amphetamines Screen U Benzodiazepines Scrn U Oth Cocaine Metabols U Cannabinoids Screen Alcohol, Quantitative Blood Type Blood Type Confirm Antibody Screen BBK History Checked 05/18/18 05/18/18 05/18/18 06:45 06:45 10:46 WBC RBC Hgb Hct MCV MCH MCHC RDW Plt Count MPV Neut % (Auto) Lymph % (Auto) [place] % (Auto) Eos % (Auto) Baso % (Auto) Neut # (Auto) Lymph # (Auto) [place] # (Auto) Eos # (Auto) Baso # (Auto) PT INR APTT pCO2 pO2 HCO3 ABG pH ABG Total CO2 ABG O2 Saturation ABG O2 Content ABG Base Excess ABG Hemoglobin ABG Carboxyhemoglobin POC ABG HHb (Measured) ABG Methemoglobin ABG O2 Capacity Yousuf Test VBG pH VBG pCO2 VBG HCO3 VBG Total CO2 VBG O2 Sat (Calc) VBG Base Excess VBG Potassium A-a O2 Difference Hgb O2 Saturation Glucose Lactate FiO2 Crit Value Called To Crit Value Called By Crit Value Read Back Blood Gas Notified Time Sodium 127 L Potassium 3.4 L Chloride 93 L Carbon Dioxide 24 Anion Gap 13 BUN 8 Creatinine 0.3 L Est GFR ( Amer) > 60 Est GFR (Non-Af Amer) > 60 POC Glucose (mg/dL) 133 H Random Glucose 94 Serum Osmolality Calcium 7.9 L Phosphorus 1.9 L Magnesium 1.7 Total Bilirubin 1.3 AST 53 H D ALT 31 Alkaline Phosphatase 71 Ammonia Troponin I Total Protein 6.9 Albumin 3.8 Globulin 3.1 Albumin/Globulin Ratio 1.2 Thyroxine (T4) Total T3 TSH 3rd Generation Venous Blood Potassium Urine Osmolality Ur Random Sodium Ur Random Potassium Urine Opiates Screen Urine Methadone Screen Ur Barbiturates Screen Ur Phencyclidine Scrn Ur Amphetamines Screen U Benzodiazepines Scrn U Oth Cocaine Metabols U Cannabinoids Screen Alcohol, Quantitative Blood Type Blood Type Confirm O POSITIVE Antibody Screen BBK History Checked 05/18/18 11:01 WBC RBC Hgb Hct MCV MCH MCHC RDW Plt Count MPV Neut % (Auto) Lymph % (Auto) [place] % (Auto) Eos % (Auto) Baso % (Auto) Neut # (Auto) Lymph # (Auto) [place] # (Auto) Eos # (Auto) Baso # (Auto) PT INR APTT pCO2 pO2 HCO3 ABG pH ABG Total CO2 ABG O2 Saturation ABG O2 Content ABG Base Excess ABG Hemoglobin ABG Carboxyhemoglobin POC ABG HHb (Measured) ABG Methemoglobin ABG O2 Capacity Yousuf Test VBG pH VBG pCO2 VBG HCO3 VBG Total CO2 VBG O2 Sat (Calc) VBG Base Excess VBG Potassium A-a O2 Difference Hgb O2 Saturation Glucose Lactate FiO2 Crit Value Called To Crit Value Called By Crit Value Read Back Blood Gas Notified Time Sodium Potassium Chloride Carbon Dioxide Anion Gap BUN Creatinine Est GFR ( Amer) Est GFR (Non-Af Amer) POC Glucose (mg/dL) 102 Random Glucose Serum Osmolality Calcium Phosphorus Magnesium Total Bilirubin AST ALT Alkaline Phosphatase Ammonia Troponin I Total Protein Albumin Globulin Albumin/Globulin Ratio Thyroxine (T4) Total T3 TSH 3rd Generation Venous Blood Potassium Urine Osmolality Ur Random Sodium Ur Random Potassium Urine Opiates Screen Urine Methadone Screen Ur Barbiturates Screen Ur Phencyclidine Scrn Ur Amphetamines Screen U Benzodiazepines Scrn U Oth Cocaine Metabols U Cannabinoids Screen Alcohol, Quantitative Blood Type Blood Type Confirm Antibody Screen BBK History Checked Fingerstick Blood Sugar Results: 164 Review of Systems - Review of Systems Systems not reviewed;Unavailable: Altered Mental Status Critical Care Progress Note - Nutrition Nutrition: Nutrition Category Date Time Status NPO Diet [DIET] Diets 05/18/18 Breakfast Active Assessment/Plan - Assessment and Plan (Free Text) Assessment: 63 y/o f with a PMHx of DM 2, HTN and HLD admitted to ICU due to altered mental status, hyponatremia and electrolyte imbalance. PLAN: 1. Hyponatremia --Serum Na 122 at 11pm last night. --Will attempt not to overcorrect serum Na+. goal is 6-8 mEq in first 24 hours. --Serum Na 123 at 4 am today --Serum Na+ 127 at 10 am --Will stop hypertonic IV solution 3% NS. --Nephrology consult, Dr Jc. --Will start IV NS+20mEq KCL at 75 mL/hr. --F/U CMP this afternoon. 2. Altered mental status --Possibly due to hyponatremia, needs to rule out seizure, CVA, TIA. --CT head was unremarkable. --Neurology consult. Dr Terry --ABG ordered --Video EEG in progress. --Will follow mental status 3. Hypokalemia --Serum K 3.4 at 4am today. --Low Magnessium level, 1.4 this morning --IV MgSO4 2gr ordered. --IV potassium phosphate ordered --F/U CMP this afternoon. 4. Hypophosphatemia --Serum pohosphorus 1.9-low --IV potassium phosphate ordered 5. Leukocytosis --Elevated WBC's, 17.8-high this morning. --unclear etiology 6. DM2 -NPO now -q6h accucheck with SSI 7. Prophylaxis --Lovenox Case discussed with Dr Gatito Montoya PGY-2 - Date & Time Date: 05/18/18 Time: 12:25 <James Mederos - Last Filed: 05/18/18 13:27> CCU Objective - Vital Signs / Intake & Output Vital Signs (Last 4 hours): Vital Signs Pulse Resp BP Pulse Ox 05/18/18 12:00 79 24 103/58 L 100 05/18/18 10:00 87 19 137/68 100 Intake and Output (Last 8hrs): Intake & Output 05/17/18 05/18/18 05/18/18 22:59 06:59 14:59 Intake Total 600 350 Output Total 1700 700 Balance -1100 -350 Weight 145 lb Intake: IV 600 Intake, Piggyback 350 Oral 0 Tube Feeding 0 Blood Product 0 Albumin 0 Other 0 Output: Chest Tube Drainage 0 Gastric Amount 0 Drainage 0 Urine 1700 700 Urethral (Dong) 700 Stool 0 Emesis 0 Other 0 - Medications Active Medications: Active Medications Generic Name Dose Route Start Last Admin Trade Name Freq PRN Reason Stop Dose Admin Enoxaparin Sodium 40 mg 05/18/18 09:00 05/18/18 12:14 Lovenox SC Not Given DAILY [facility] Protocol Sodium Chloride 1,000 mls @ 125 mls/hr 05/18/18 03:45 05/18/18 12:17 Sodium Chloride 0.9% IV 05/18/18 19:44 Not Given .Q8H THOMAS Potassium Phosphate 30 mmole/ 260 mls @ 65 mls/hr 05/18/18 09:23 05/18/18 12:16 Sodium Chloride IV 05/18/18 13:22 65 mls/hr ONCE ONE Administration Potassium Chloride/Sodium Chloride 1,000 mls @ 75 mls/hr 05/18/18 12:15 05/18/18 13:06 Potassium Chl 20 Meq In Ns IV 05/19/18 12:12 75 mls/hr .[id number] THOMAS Administration Insulin Human Lispro 0 units 05/18/18 04:00 05/18/18 11:00 Humalog SC Not Given Q6H [facility] Protocol - Patient Studies Lab Studies: Lab Studies 05/18/18 05/18/18 05/18/18 Range/Units 11:01 10:46 06:45 WBC (4.8-10.8) K/uL RBC (3.80-5.20) Mil/uL Hgb (12.0-16.0) g/dL Hct (34.0-47.0) % MCV (81.0-99.0) fl MCH (27.0-31.0) pg MCHC (33.0-37.0) g/dL RDW (11.5-14.5) % Plt Count (130-400) K/uL MPV (7.2-11.7) fl Neut % (Auto) (50.0-75.0) % Lymph % (Auto) (20.0-40.0) % [place] % (Auto) (0.0-10.0) % Eos % (Auto) (0.0-4.0) % Baso % (Auto) (0.0-2.0) % Neut # (Auto) (1.8-7.0) K/uL Lymph # (Auto) (1.0-4.3) K/uL [place] # (Auto) (0.0-0.8) K/uL Eos # (Auto) (0.0-0.7) K/uL Baso # (Auto) (0.0-0.2) K/uL PT (9.8-13.1) Seconds INR APTT (25.6-37.1) Seconds pCO2 (35-45) mm/Hg pO2 (30-55) mm/Hg HCO3 (21-28) mmol/L ABG pH (7.35-7.45) ABG Total CO2 (22-28) mmol/L ABG O2 Saturation (95-98) % ABG O2 Content (15-23) ML/dL ABG Base Excess (-2.0-3.0) mmol/L ABG Hemoglobin (11.7-17.4) g/dL ABG Carboxyhemoglobin (0.5-1.5) % POC ABG HHb (Measured) (0.0-5.0) % ABG Methemoglobin (0.0-3.0) % ABG O2 Capacity (16-24) mL/dL Yousuf Test VBG pH (7.32-7.43) VBG pCO2 (40-60) mmHg VBG HCO3 mmol/L VBG Total CO2 (22-28) mmol/L VBG O2 Sat (Calc) (40-65) % VBG Base Excess (0.0-2.0) mmol/L VBG Potassium (3.6-5.2) mmol/L A-a O2 Difference mm/Hg Hgb O2 Saturation (95.0-98.0) % Glucose (65-105) mg/dL Lactate (0.7-2.1) mmol/L FiO2 % Crit Value Called To Crit Value Called By Crit Value Read Back Blood Gas Notified Time Sodium 127 L (132-148) mmol/l Potassium 3.4 L (3.6-5.0) MMOL/L Chloride 93 L (98-107) mmol/L Carbon Dioxide 24 (22-30) mmol/L Anion Gap 13 (10-20) BUN 8 (7-17) mg/dl Creatinine 0.3 L (0.7-1.2) mg/dl Est GFR ( Amer) > 60 Est GFR (Non-Af Amer) > 60 POC Glucose (mg/dL) 102 133 H (65-110) mg/dL Random Glucose 94 (65-105) mg/dL Serum Osmolality (272-300) mosm/kg Calcium 7.9 L (8.4-10.2) mg/dL Phosphorus 1.9 L (2.5-4.5) mg/dl Magnesium 1.7 (1.6-2.3) MG/DL Total Bilirubin 1.3 (0.2-1.3) mg/dl AST 53 H D (14-36) U/L ALT 31 (9-52) U/L Alkaline Phosphatase 71 (38-126) U/L Ammonia (11-51) umo/L Troponin I (0.00-0.120) ng/mL Total Protein 6.9 (6.3-8.2) G/DL Albumin 3.8 (3.5-5.0) g/dL Globulin 3.1 (2.2-3.9) gm/dL Albumin/Globulin Ratio 1.2 (1.0-2.1) Thyroxine (T4) (5.5-11.0) ug/dl Total T3 (1.49-2.60) nmol/L TSH 3rd Generation (0.46-4.68) mIU/ML Venous Blood Potassium (3.6-5.2) mmol/L Urine Osmolality (300-1000) mosm/kg Ur Random Sodium meq/L Ur Random Potassium mmol/L Urine Opiates Screen (NEGATIVE) Urine Methadone Screen (NEGATIVE) Ur Barbiturates Screen (NEGATIVE) Ur Phencyclidine Scrn (NEGATIVE) Ur Amphetamines Screen (NEGATIVE) U Benzodiazepines Scrn (NEGATIVE) U Oth Cocaine Metabols (NEGATIVE) U Cannabinoids Screen (NEGATIVE) Alcohol, Quantitative (0-10) mg/dl Blood Type Blood Type Confirm Antibody Screen BBK History Checked 05/18/18 05/18/18 05/18/18 Range/Units 06:45 06:30 04:35 WBC 17.8 H (4.8-10.8) K/uL RBC 4.05 (3.80-5.20) Mil/uL Hgb 12.2 (12.0-16.0) g/dL Hct 35.7 (34.0-47.0) % MCV 88.3 D (81.0-99.0) fl MCH 30.2 (27.0-31.0) pg MCHC 34.2 (33.0-37.0) g/dL RDW 13.0 (11.5-14.5) % Plt Count 287 (130-400) K/uL MPV (7.2-11.7) fl Neut % (Auto) (50.0-75.0) % Lymph % (Auto) (20.0-40.0) % [place] % (Auto) (0.0-10.0) % Eos % (Auto) (0.0-4.0) % Baso % (Auto) (0.0-2.0) % Neut # (Auto) (1.8-7.0) K/uL Lymph # (Auto) (1.0-4.3) K/uL [place] # (Auto) (0.0-0.8) K/uL Eos # (Auto) (0.0-0.7) K/uL Baso # (Auto) (0.0-0.2) K/uL PT (9.8-13.1) Seconds INR APTT (25.6-37.1) Seconds pCO2 (35-45) mm/Hg pO2 (30-55) mm/Hg HCO3 (21-28) mmol/L ABG pH (7.35-7.45) ABG Total CO2 (22-28) mmol/L ABG O2 Saturation (95-98) % ABG O2 Content (15-23) ML/dL ABG Base Excess (-2.0-3.0) mmol/L ABG Hemoglobin (11.7-17.4) g/dL ABG Carboxyhemoglobin (0.5-1.5) % POC ABG HHb (Measured) (0.0-5.0) % ABG Methemoglobin (0.0-3.0) % ABG O2 Capacity (16-24) mL/dL Yousuf Test VBG pH (7.32-7.43) VBG pCO2 (40-60) mmHg VBG HCO3 mmol/L VBG Total CO2 (22-28) mmol/L VBG O2 Sat (Calc) (40-65) % VBG Base Excess (0.0-2.0) mmol/L VBG Potassium (3.6-5.2) mmol/L A-a O2 Difference mm/Hg Hgb O2 Saturation (95.0-98.0) % Glucose (65-105) mg/dL Lactate (0.7-2.1) mmol/L FiO2 % Crit Value Called To Crit Value Called By Crit Value Read Back Blood Gas Notified Time Sodium (132-148) mmol/l Potassium (3.6-5.0) MMOL/L Chloride (98-107) mmol/L Carbon Dioxide (22-30) mmol/L Anion Gap (10-20) BUN (7-17) mg/dl Creatinine (0.7-1.2) mg/dl Est GFR ( Amer) Est GFR (Non-Af Amer) POC Glucose (mg/dL) 164 H (65-110) mg/dL Random Glucose (65-105) mg/dL Serum Osmolality (272-300) mosm/kg Calcium (8.4-10.2) mg/dL Phosphorus (2.5-4.5) mg/dl Magnesium (1.6-2.3) MG/DL Total Bilirubin (0.2-1.3) mg/dl AST (14-36) U/L ALT (9-52) U/L Alkaline Phosphatase (38-126) U/L Ammonia (11-51) umo/L Troponin I (0.00-0.120) ng/mL Total Protein (6.3-8.2) G/DL Albumin (3.5-5.0) g/dL Globulin (2.2-3.9) gm/dL Albumin/Globulin Ratio (1.0-2.1) Thyroxine (T4) (5.5-11.0) ug/dl Total T3 (1.49-2.60) nmol/L TSH 3rd Generation (0.46-4.68) mIU/ML Venous Blood Potassium (3.6-5.2) mmol/L Urine Osmolality (300-1000) mosm/kg Ur Random Sodium meq/L Ur Random Potassium mmol/L Urine Opiates Screen (NEGATIVE) Urine Methadone Screen (NEGATIVE) Ur Barbiturates Screen (NEGATIVE) Ur Phencyclidine Scrn (NEGATIVE) Ur Amphetamines Screen (NEGATIVE) U Benzodiazepines Scrn (NEGATIVE) U Oth Cocaine Metabols (NEGATIVE) U Cannabinoids Screen (NEGATIVE) Alcohol, Quantitative (0-10) mg/dl Blood Type Blood Type Confirm O POSITIVE Antibody Screen BBK History Checked 05/18/18 05/18/18 05/18/18 Range/Units 04:12 04:12 04:12 WBC (4.8-10.8) K/uL RBC (3.80-5.20) Mil/uL Hgb (12.0-16.0) g/dL Hct (34.0-47.0) % MCV (81.0-99.0) fl MCH (27.0-31.0) pg MCHC (33.0-37.0) g/dL RDW (11.5-14.5) % Plt Count (130-400) K/uL MPV (7.2-11.7) fl Neut % (Auto) (50.0-75.0) % Lymph % (Auto) (20.0-40.0) % [place] % (Auto) (0.0-10.0) % Eos % (Auto) (0.0-4.0) % Baso % (Auto) (0.0-2.0) % Neut # (Auto) (1.8-7.0) K/uL Lymph # (Auto) (1.0-4.3) K/uL [place] # (Auto) (0.0-0.8) K/uL Eos # (Auto) (0.0-0.7) K/uL Baso # (Auto) (0.0-0.2) K/uL PT (9.8-13.1) Seconds INR APTT (25.6-37.1) Seconds pCO2 (35-45) mm/Hg pO2 (30-55) mm/Hg HCO3 (21-28) mmol/L ABG pH (7.35-7.45) ABG Total CO2 (22-28) mmol/L ABG O2 Saturation (95-98) % ABG O2 Content (15-23) ML/dL ABG Base Excess (-2.0-3.0) mmol/L ABG Hemoglobin (11.7-17.4) g/dL ABG Carboxyhemoglobin (0.5-1.5) % POC ABG HHb (Measured) (0.0-5.0) % ABG Methemoglobin (0.0-3.0) % ABG O2 Capacity (16-24) mL/dL Yousuf Test VBG pH (7.32-7.43) VBG pCO2 (40-60) mmHg VBG HCO3 mmol/L VBG Total CO2 (22-28) mmol/L VBG O2 Sat (Calc) (40-65) % VBG Base Excess (0.0-2.0) mmol/L VBG Potassium (3.6-5.2) mmol/L A-a O2 Difference mm/Hg Hgb O2 Saturation (95.0-98.0) % Glucose (65-105) mg/dL Lactate (0.7-2.1) mmol/L FiO2 % Crit Value Called To Crit Value Called By Crit Value Read Back Blood Gas Notified Time Sodium 123 L (132-148) mmol/l Potassium 3.4 L (3.6-5.0) MMOL/L Chloride 87 L (98-107) mmol/L Carbon Dioxide 25 (22-30) mmol/L Anion Gap 14 (10-20) BUN 11 (7-17) mg/dl Creatinine 0.3 L (0.7-1.2) mg/dl Est GFR ( Amer) > 60 Est GFR (Non-Af Amer) > 60 POC Glucose (mg/dL) (65-110) mg/dL Random Glucose 204 H (65-105) mg/dL Serum Osmolality 258 L (272-300) mosm/kg Calcium 7.3 L (8.4-10.2) mg/dL Phosphorus (2.5-4.5) mg/dl Magnesium (1.6-2.3) MG/DL Total Bilirubin (0.2-1.3) mg/dl AST (14-36) U/L ALT (9-52) U/L Alkaline Phosphatase (38-126) U/L Ammonia (11-51) umo/L Troponin I (0.00-0.120) ng/mL Total Protein (6.3-8.2) G/DL Albumin (3.5-5.0) g/dL Globulin (2.2-3.9) gm/dL Albumin/Globulin Ratio (1.0-2.1) Thyroxine (T4) 7.16 (5.5-11.0) ug/dl Total T3 0.804 L (1.49-2.60) nmol/L TSH 3rd Generation 0.77 (0.46-4.68) mIU/ML Venous Blood Potassium (3.6-5.2) mmol/L Urine Osmolality 623 (300-1000) mosm/kg Ur Random Sodium 139 meq/L Ur Random Potassium 41.4 mmol/L Urine Opiates Screen (NEGATIVE) Urine Methadone Screen (NEGATIVE) Ur Barbiturates Screen (NEGATIVE) Ur Phencyclidine Scrn (NEGATIVE) Ur Amphetamines Screen (NEGATIVE) U Benzodiazepines Scrn (NEGATIVE) U Oth Cocaine Metabols (NEGATIVE) U Cannabinoids Screen (NEGATIVE) Alcohol, Quantitative (0-10) mg/dl Blood Type Blood Type Confirm Antibody Screen BBK History Checked 05/18/18 05/18/18 05/18/18 Range/Units 04:01 01:25 01:02 WBC (4.8-10.8) K/uL RBC (3.80-5.20) Mil/uL Hgb (12.0-16.0) g/dL Hct (34.0-47.0) % MCV (81.0-99.0) fl MCH (27.0-31.0) pg MCHC (33.0-37.0) g/dL RDW (11.5-14.5) % Plt Count (130-400) K/uL MPV (7.2-11.7) fl Neut % (Auto) (50.0-75.0) % Lymph % (Auto) (20.0-40.0) % [place] % (Auto) (0.0-10.0) % Eos % (Auto) (0.0-4.0) % Baso % (Auto) (0.0-2.0) % Neut # (Auto) (1.8-7.0) K/uL Lymph # (Auto) (1.0-4.3) K/uL [place] # (Auto) (0.0-0.8) K/uL Eos # (Auto) (0.0-0.7) K/uL Baso # (Auto) (0.0-0.2) K/uL PT (9.8-13.1) Seconds INR APTT (25.6-37.1) Seconds pCO2 38 (35-45) mm/Hg pO2 147 H (30-55) mm/Hg HCO3 26.2 (21-28) mmol/L ABG pH 7.44 (7.35-7.45) ABG Total CO2 27.0 (22-28) mmol/L ABG O2 Saturation 100.2 H (95-98) % ABG O2 Content 16.9 (15-23) ML/dL ABG Base Excess 1.7 (-2.0-3.0) mmol/L ABG Hemoglobin 12.3 (11.7-17.4) g/dL ABG Carboxyhemoglobin 1.8 H (0.5-1.5) % POC ABG HHb (Measured) -0.2 L (0.0-5.0) % ABG Methemoglobin 2.5 (0.0-3.0) % ABG O2 Capacity 16.9 (16-24) mL/dL Yousuf Test Yes VBG pH (7.32-7.43) VBG pCO2 (40-60) mmHg VBG HCO3 mmol/L VBG Total CO2 (22-28) mmol/L VBG O2 Sat (Calc) (40-65) % VBG Base Excess (0.0-2.0) mmol/L VBG Potassium (3.6-5.2) mmol/L A-a O2 Difference 34.0 mm/Hg Hgb O2 Saturation 96.0 (95.0-98.0) % Glucose (65-105) mg/dL Lactate (0.7-2.1) mmol/L FiO2 32.0 % Crit Value Called To Dr emery siddiqi Crit Value Called By Devon Crit Value Read Back Y Blood Gas Notified Time 402 Sodium 120 L* (132-148) mmol/l Potassium 3.8 (3.6-5.0) MMOL/L Chloride 85 L (98-107) mmol/L Carbon Dioxide 24 (22-30) mmol/L Anion Gap 15 (10-20) BUN 12 (7-17) mg/dl Creatinine 0.3 L (0.7-1.2) mg/dl Est GFR ( Amer) > 60 Est GFR (Non-Af Amer) > 60 POC Glucose (mg/dL) (65-110) mg/dL Random Glucose 237 H (65-105) mg/dL Serum Osmolality (272-300) mosm/kg Calcium 7.1 L (8.4-10.2) mg/dL Phosphorus 2.0 L (2.5-4.5) mg/dl Magnesium 1.4 L (1.6-2.3) MG/DL Total Bilirubin (0.2-1.3) mg/dl AST (14-36) U/L ALT (9-52) U/L Alkaline Phosphatase (38-126) U/L Ammonia (11-51) umo/L Troponin I (0.00-0.120) ng/mL Total Protein (6.3-8.2) G/DL Albumin (3.5-5.0) g/dL Globulin (2.2-3.9) gm/dL Albumin/Globulin Ratio (1.0-2.1) Thyroxine (T4) (5.5-11.0) ug/dl Total T3 (1.49-2.60) nmol/L TSH 3rd Generation (0.46-4.68) mIU/ML Venous Blood Potassium (3.6-5.2) mmol/L Urine Osmolality (300-1000) mosm/kg Ur Random Sodium meq/L Ur Random Potassium mmol/L Urine Opiates Screen Negative (NEGATIVE) Urine Methadone Screen Negative (NEGATIVE) Ur Barbiturates Screen Negative (NEGATIVE) Ur Phencyclidine Scrn Negative (NEGATIVE) Ur Amphetamines Screen Negative (NEGATIVE) U Benzodiazepines Scrn Negative (NEGATIVE) U Oth Cocaine Metabols Negative (NEGATIVE) U Cannabinoids Screen Negative (NEGATIVE) Alcohol, Quantitative (0-10) mg/dl Blood Type Blood Type Confirm Antibody Screen BBK History Checked 05/18/18 05/17/18 05/17/18 Range/Units 00:27 23:45 23:40 WBC (4.8-10.8) K/uL RBC (3.80-5.20) Mil/uL Hgb (12.0-16.0) g/dL Hct (34.0-47.0) % MCV (81.0-99.0) fl MCH (27.0-31.0) pg MCHC (33.0-37.0) g/dL RDW (11.5-14.5) % Plt Count (130-400) K/uL MPV (7.2-11.7) fl Neut % (Auto) (50.0-75.0) % Lymph % (Auto) (20.0-40.0) % [place] % (Auto) (0.0-10.0) % Eos % (Auto) (0.0-4.0) % Baso % (Auto) (0.0-2.0) % Neut # (Auto) (1.8-7.0) K/uL Lymph # (Auto) (1.0-4.3) K/uL [place] # (Auto) (0.0-0.8) K/uL Eos # (Auto) (0.0-0.7) K/uL Baso # (Auto) (0.0-0.2) K/uL PT (9.8-13.1) Seconds INR APTT (25.6-37.1) Seconds pCO2 (35-45) mm/Hg pO2 47 (30-55) mm/Hg HCO3 (21-28) mmol/L ABG pH (7.35-7.45) ABG Total CO2 (22-28) mmol/L ABG O2 Saturation (95-98) % ABG O2 Content (15-23) ML/dL ABG Base Excess (-2.0-3.0) mmol/L ABG Hemoglobin (11.7-17.4) g/dL ABG Carboxyhemoglobin (0.5-1.5) % POC ABG HHb (Measured) (0.0-5.0) % ABG Methemoglobin (0.0-3.0) % ABG O2 Capacity (16-24) mL/dL Yousuf Test VBG pH 7.22 L (7.32-7.43) VBG pCO2 47 (40-60) mmHg VBG HCO3 17.8 mmol/L VBG Total CO2 20.6 L (22-28) mmol/L VBG O2 Sat (Calc) 82.2 H (40-65) % VBG Base Excess -8.5 L (0.0-2.0) mmol/L VBG Potassium 3.2 L (3.6-5.2) mmol/L A-a O2 Difference mm/Hg Hgb O2 Saturation (95.0-98.0) % Glucose 291 H (65-105) mg/dL Lactate 9.8 H* (0.7-2.1) mmol/L FiO2 21.0 % Crit Value Called To Dr cornel garcia Crit Value Called By Crit Value Read Back Y Blood Gas Notified Time 2349 Sodium 119.0 L* (132-148) mmol/l Potassium (3.6-5.0) MMOL/L Chloride 81.0 L (98-107) mmol/L Carbon Dioxide (22-30) mmol/L Anion Gap (10-20) BUN (7-17) mg/dl Creatinine (0.7-1.2) mg/dl Est GFR ( Amer) Est GFR (Non-Af Amer) POC Glucose (mg/dL) (65-110) mg/dL Random Glucose (65-105) mg/dL Serum Osmolality (272-300) mosm/kg Calcium (8.4-10.2) mg/dL Phosphorus (2.5-4.5) mg/dl Magnesium (1.6-2.3) MG/DL Total Bilirubin (0.2-1.3) mg/dl AST (14-36) U/L ALT (9-52) U/L Alkaline Phosphatase (38-126) U/L Ammonia 36 (11-51) umo/L Troponin I (0.00-0.120) ng/mL Total Protein (6.3-8.2) G/DL Albumin (3.5-5.0) g/dL Globulin (2.2-3.9) gm/dL Albumin/Globulin Ratio (1.0-2.1) Thyroxine (T4) (5.5-11.0) ug/dl Total T3 (1.49-2.60) nmol/L TSH 3rd Generation (0.46-4.68) mIU/ML Venous Blood Potassium 3.2 L (3.6-5.2) mmol/L Urine Osmolality (300-1000) mosm/kg Ur Random Sodium meq/L Ur Random Potassium mmol/L Urine Opiates Screen (NEGATIVE) Urine Methadone Screen (NEGATIVE) Ur Barbiturates Screen (NEGATIVE) Ur Phencyclidine Scrn (NEGATIVE) Ur Amphetamines Screen (NEGATIVE) U Benzodiazepines Scrn (NEGATIVE) U Oth Cocaine Metabols (NEGATIVE) U Cannabinoids Screen (NEGATIVE) Alcohol, Quantitative (0-10) mg/dl Blood Type O POSITIVE Blood Type Confirm Antibody Screen Negative BBK History Checked No verified bt 05/17/18 05/17/18 05/17/18 Range/Units 23:40 23:40 23:40 WBC 20.0 H D (4.8-10.8) K/uL RBC 4.26 (3.80-5.20) Mil/uL Hgb 12.6 (12.0-16.0) g/dL Hct 38.5 (34.0-47.0) % MCV 90.4 D (81.0-99.0) fl MCH 29.7 (27.0-31.0) pg MCHC 32.8 L (33.0-37.0) g/dL RDW 13.4 (11.5-14.5) % Plt Count 330 (130-400) K/uL MPV 8.3 (7.2-11.7) fl Neut % (Auto) 71.7 (50.0-75.0) % Lymph % (Auto) 20.4 (20.0-40.0) % [place] % (Auto) 6.8 (0.0-10.0) % Eos % (Auto) 0.6 (0.0-4.0) % Baso % (Auto) 0.5 (0.0-2.0) % Neut # (Auto) 14.3 H (1.8-7.0) K/uL Lymph # (Auto) 4.1 (1.0-4.3) K/uL [place] # (Auto) 1.4 H (0.0-0.8) K/uL Eos # (Auto) 0.1 (0.0-0.7) K/uL Baso # (Auto) 0.1 (0.0-0.2) K/uL PT 10.5 (9.8-13.1) Seconds INR 0.9 APTT 27.1 (25.6-37.1) Seconds pCO2 (35-45) mm/Hg pO2 (30-55) mm/Hg HCO3 (21-28) mmol/L ABG pH (7.35-7.45) ABG Total CO2 (22-28) mmol/L ABG O2 Saturation (95-98) % ABG O2 Content (15-23) ML/dL ABG Base Excess (-2.0-3.0) mmol/L ABG Hemoglobin (11.7-17.4) g/dL ABG Carboxyhemoglobin (0.5-1.5) % POC ABG HHb (Measured) (0.0-5.0) % ABG Methemoglobin (0.0-3.0) % ABG O2 Capacity (16-24) mL/dL Yousuf Test VBG pH (7.32-7.43) VBG pCO2 (40-60) mmHg VBG HCO3 mmol/L VBG Total CO2 (22-28) mmol/L VBG O2 Sat (Calc) (40-65) % VBG Base Excess (0.0-2.0) mmol/L VBG Potassium (3.6-5.2) mmol/L A-a O2 Difference mm/Hg Hgb O2 Saturation (95.0-98.0) % Glucose (65-105) mg/dL Lactate (0.7-2.1) mmol/L FiO2 % Crit Value Called To Crit Value Called By Crit Value Read Back Blood Gas Notified Time Sodium 122 L (132-148) mmol/l Potassium 3.3 L (3.6-5.0) MMOL/L Chloride 82 L (98-107) mmol/L Carbon Dioxide 20 L (22-30) mmol/L Anion Gap 23 H (10-20) BUN 11 (7-17) mg/dl Creatinine 0.4 L (0.7-1.2) mg/dl Est GFR ( Amer) > 60 Est GFR (Non-Af Amer) > 60 POC Glucose (mg/dL) (65-110) mg/dL Random Glucose 273 H (65-105) mg/dL Serum Osmolality (272-300) mosm/kg Calcium 8.1 L (8.4-10.2) mg/dL Phosphorus 2.3 L (2.5-4.5) mg/dl Magnesium 1.5 L (1.6-2.3) MG/DL Total Bilirubin 1.2 (0.2-1.3) mg/dl AST 41 H D (14-36) U/L ALT 25 (9-52) U/L Alkaline Phosphatase 102 (38-126) U/L Ammonia (11-51) umo/L Troponin I < 0.0120 (0.00-0.120) ng/mL Total Protein 7.8 (6.3-8.2) G/DL Albumin 4.6 (3.5-5.0) g/dL Globulin 3.2 (2.2-3.9) gm/dL Albumin/Globulin Ratio 1.5 (1.0-2.1) Thyroxine (T4) (5.5-11.0) ug/dl Total T3 (1.49-2.60) nmol/L TSH 3rd Generation (0.46-4.68) mIU/ML Venous Blood Potassium (3.6-5.2) mmol/L Urine Osmolality (300-1000) mosm/kg Ur Random Sodium meq/L Ur Random Potassium mmol/L Urine Opiates Screen (NEGATIVE) Urine Methadone Screen (NEGATIVE) Ur Barbiturates Screen (NEGATIVE) Ur Phencyclidine Scrn (NEGATIVE) Ur Amphetamines Screen (NEGATIVE) U Benzodiazepines Scrn (NEGATIVE) U Oth Cocaine Metabols (NEGATIVE) U Cannabinoids Screen (NEGATIVE) Alcohol, Quantitative < 10 (0-10) mg/dl Blood Type Blood Type Confirm Antibody Screen BBK History Checked 05/17/18 Range/Units 23:23 WBC (4.8-10.8) K/uL RBC (3.80-5.20) Mil/uL Hgb (12.0-16.0) g/dL Hct (34.0-47.0) % MCV (81.0-99.0) fl MCH (27.0-31.0) pg MCHC (33.0-37.0) g/dL RDW (11.5-14.5) % Plt Count (130-400) K/uL MPV (7.2-11.7) fl Neut % (Auto) (50.0-75.0) % Lymph % (Auto) (20.0-40.0) % [place] % (Auto) (0.0-10.0) % Eos % (Auto) (0.0-4.0) % Baso % (Auto) (0.0-2.0) % Neut # (Auto) (1.8-7.0) K/uL Lymph # (Auto) (1.0-4.3) K/uL [place] # (Auto) (0.0-0.8) K/uL Eos # (Auto) (0.0-0.7) K/uL Baso # (Auto) (0.0-0.2) K/uL PT (9.8-13.1) Seconds INR APTT (25.6-37.1) Seconds pCO2 (35-45) mm/Hg pO2 (30-55) mm/Hg HCO3 (21-28) mmol/L ABG pH (7.35-7.45) ABG Total CO2 (22-28) mmol/L ABG O2 Saturation (95-98) % ABG O2 Content (15-23) ML/dL ABG Base Excess (-2.0-3.0) mmol/L ABG Hemoglobin (11.7-17.4) g/dL ABG Carboxyhemoglobin (0.5-1.5) % POC ABG HHb (Measured) (0.0-5.0) % ABG Methemoglobin (0.0-3.0) % ABG O2 Capacity (16-24) mL/dL Yousuf Test VBG pH (7.32-7.43) VBG pCO2 (40-60) mmHg VBG HCO3 mmol/L VBG Total CO2 (22-28) mmol/L VBG O2 Sat (Calc) (40-65) % VBG Base Excess (0.0-2.0) mmol/L VBG Potassium (3.6-5.2) mmol/L A-a O2 Difference mm/Hg Hgb O2 Saturation (95.0-98.0) % Glucose (65-105) mg/dL Lactate (0.7-2.1) mmol/L FiO2 % Crit Value Called To Crit Value Called By Crit Value Read Back Blood Gas Notified Time Sodium (132-148) mmol/l Potassium (3.6-5.0) MMOL/L Chloride (98-107) mmol/L Carbon Dioxide (22-30) mmol/L Anion Gap (10-20) BUN (7-17) mg/dl Creatinine (0.7-1.2) mg/dl Est GFR ( Amer) Est GFR (Non-Af Amer) POC Glucose (mg/dL) 238 H (65-110) mg/dL Random Glucose (65-105) mg/dL Serum Osmolality (272-300) mosm/kg Calcium (8.4-10.2) mg/dL Phosphorus (2.5-4.5) mg/dl Magnesium (1.6-2.3) MG/DL Total Bilirubin (0.2-1.3) mg/dl AST (14-36) U/L ALT (9-52) U/L Alkaline Phosphatase (38-126) U/L Ammonia (11-51) umo/L Troponin I (0.00-0.120) ng/mL Total Protein (6.3-8.2) G/DL Albumin (3.5-5.0) g/dL Globulin (2.2-3.9) gm/dL Albumin/Globulin Ratio (1.0-2.1) Thyroxine (T4) (5.5-11.0) ug/dl Total T3 (1.49-2.60) nmol/L TSH 3rd Generation (0.46-4.68) mIU/ML Venous Blood Potassium (3.6-5.2) mmol/L Urine Osmolality (300-1000) mosm/kg Ur Random Sodium meq/L Ur Random Potassium mmol/L Urine Opiates Screen (NEGATIVE) Urine Methadone Screen (NEGATIVE) Ur Barbiturates Screen (NEGATIVE) Ur Phencyclidine Scrn (NEGATIVE) Ur Amphetamines Screen (NEGATIVE) U Benzodiazepines Scrn (NEGATIVE) U Oth Cocaine Metabols (NEGATIVE) U Cannabinoids Screen (NEGATIVE) Alcohol, Quantitative (0-10) mg/dl Blood Type Blood Type Confirm Antibody Screen BBK History Checked Laboratory Results - last 24 hr 05/17/18 05/17/18 05/17/18 23:23 23:40 23:40 WBC 20.0 H D RBC 4.26 Hgb 12.6 Hct 38.5 MCV 90.4 D MCH 29.7 MCHC 32.8 L RDW 13.4 Plt Count 330 MPV 8.3 Neut % (Auto) 71.7 Lymph % (Auto) 20.4 [place] % (Auto) 6.8 Eos % (Auto) 0.6 Baso % (Auto) 0.5 Neut # (Auto) 14.3 H Lymph # (Auto) 4.1 [place] # (Auto) 1.4 H Eos # (Auto) 0.1 Baso # (Auto) 0.1 PT INR APTT pCO2 pO2 HCO3 ABG pH ABG Total CO2 ABG O2 Saturation ABG O2 Content ABG Base Excess ABG Hemoglobin ABG Carboxyhemoglobin POC ABG HHb (Measured) ABG Methemoglobin ABG O2 Capacity Yousuf Test VBG pH VBG pCO2 VBG HCO3 VBG Total CO2 VBG O2 Sat (Calc) VBG Base Excess VBG Potassium A-a O2 Difference Hgb O2 Saturation Glucose Lactate FiO2 Crit Value Called To Crit Value Called By Crit Value Read Back Blood Gas Notified Time Sodium 122 L Potassium 3.3 L Chloride 82 L Carbon Dioxide 20 L Anion Gap 23 H BUN 11 Creatinine 0.4 L Est GFR ( Amer) > 60 Est GFR (Non-Af Amer) > 60 POC Glucose (mg/dL) 238 H Random Glucose 273 H Serum Osmolality Calcium 8.1 L Phosphorus 2.3 L Magnesium 1.5 L Total Bilirubin 1.2 AST 41 H D ALT 25 Alkaline Phosphatase 102 Ammonia Troponin I < 0.0120 Total Protein 7.8 Albumin 4.6 Globulin 3.2 Albumin/Globulin Ratio 1.5 Thyroxine (T4) Total T3 TSH 3rd Generation Venous Blood Potassium Urine Osmolality Ur Random Sodium Ur Random Potassium Urine Opiates Screen Urine Methadone Screen Ur Barbiturates Screen Ur Phencyclidine Scrn Ur Amphetamines Screen U Benzodiazepines Scrn U Oth Cocaine Metabols U Cannabinoids Screen Alcohol, Quantitative < 10 Blood Type Blood Type Confirm Antibody Screen BBK History Checked 05/17/18 05/17/18 05/17/18 23:40 23:40 23:45 WBC RBC Hgb Hct MCV MCH MCHC RDW Plt Count MPV Neut % (Auto) Lymph % (Auto) [place] % (Auto) Eos % (Auto) Baso % (Auto) Neut # (Auto) Lymph # (Auto) [place] # (Auto) Eos # (Auto) Baso # (Auto) PT 10.5 INR 0.9 APTT 27.1 pCO2 pO2 47 HCO3 ABG pH ABG Total CO2 ABG O2 Saturation ABG O2 Content ABG Base Excess ABG Hemoglobin ABG Carboxyhemoglobin POC ABG HHb (Measured) ABG Methemoglobin ABG O2 Capacity Yousuf Test VBG pH 7.22 L VBG pCO2 47 VBG HCO3 17.8 VBG Total CO2 20.6 L VBG O2 Sat (Calc) 82.2 H VBG Base Excess -8.5 L VBG Potassium 3.2 L A-a O2 Difference Hgb O2 Saturation Glucose 291 H Lactate 9.8 H* FiO2 21.0 Crit Value Called To Dr cornel garcia Crit Value Called By Devon Crit Value Read Back Y Blood Gas Notified Time 2349 Sodium 119.0 L* Potassium Chloride 81.0 L Carbon Dioxide Anion Gap BUN Creatinine Est GFR ( Amer) Est GFR (Non-Af Amer) POC Glucose (mg/dL) Random Glucose Serum Osmolality Calcium Phosphorus Magnesium Total Bilirubin AST ALT Alkaline Phosphatase Ammonia Troponin I Total Protein Albumin Globulin Albumin/Globulin Ratio Thyroxine (T4) Total T3 TSH 3rd Generation Venous Blood Potassium 3.2 L Urine Osmolality Ur Random Sodium Ur Random Potassium Urine Opiates Screen Urine Methadone Screen Ur Barbiturates Screen Ur Phencyclidine Scrn Ur Amphetamines Screen U Benzodiazepines Scrn U Oth Cocaine Metabols U Cannabinoids Screen Alcohol, Quantitative Blood Type O POSITIVE Blood Type Confirm Antibody Screen Negative BBK History Checked No verified bt 05/18/18 05/18/18 05/18/18 00:27 01:02 01:25 WBC RBC Hgb Hct MCV MCH MCHC RDW Plt Count MPV Neut % (Auto) Lymph % (Auto) [place] % (Auto) Eos % (Auto) Baso % (Auto) Neut # (Auto) Lymph # (Auto) [place] # (Auto) Eos # (Auto) Baso # (Auto) PT INR APTT pCO2 pO2 HCO3 ABG pH ABG Total CO2 ABG O2 Saturation ABG O2 Content ABG Base Excess ABG Hemoglobin ABG Carboxyhemoglobin POC ABG HHb (Measured) ABG Methemoglobin ABG O2 Capacity Yousuf Test VBG pH VBG pCO2 VBG HCO3 VBG Total CO2 VBG O2 Sat (Calc) VBG Base Excess VBG Potassium A-a O2 Difference Hgb O2 Saturation Glucose Lactate FiO2 Crit Value Called To Crit Value Called By Crit Value Read Back Blood Gas Notified Time Sodium 120 L* Potassium 3.8 Chloride 85 L Carbon Dioxide 24 Anion Gap 15 BUN 12 Creatinine 0.3 L Est GFR ( Amer) > 60 Est GFR (Non-Af Amer) > 60 POC Glucose (mg/dL) Random Glucose 237 H Serum Osmolality Calcium 7.1 L Phosphorus 2.0 L Magnesium 1.4 L Total Bilirubin AST ALT Alkaline Phosphatase Ammonia 36 Troponin I Total Protein Albumin Globulin Albumin/Globulin Ratio Thyroxine (T4) Total T3 TSH 3rd Generation Venous Blood Potassium Urine Osmolality Ur Random Sodium Ur Random Potassium Urine Opiates Screen Negative Urine Methadone Screen Negative Ur Barbiturates Screen Negative Ur Phencyclidine Scrn Negative Ur Amphetamines Screen Negative U Benzodiazepines Scrn Negative U Oth Cocaine Metabols Negative U Cannabinoids Screen Negative Alcohol, Quantitative Blood Type Blood Type Confirm Antibody Screen BBK History Checked 05/18/18 05/18/18 05/18/18 04:01 04:12 04:12 WBC RBC Hgb Hct MCV MCH MCHC RDW Plt Count MPV Neut % (Auto) Lymph % (Auto) [place] % (Auto) Eos % (Auto) Baso % (Auto) Neut # (Auto) Lymph # (Auto) [place] # (Auto) Eos # (Auto) Baso # (Auto) PT INR APTT pCO2 38 pO2 147 H HCO3 26.2 ABG pH 7.44 ABG Total CO2 27.0 ABG O2 Saturation 100.2 H ABG O2 Content 16.9 ABG Base Excess 1.7 ABG Hemoglobin 12.3 ABG Carboxyhemoglobin 1.8 H POC ABG HHb (Measured) -0.2 L ABG Methemoglobin 2.5 ABG O2 Capacity 16.9 Yousuf Test Yes VBG pH VBG pCO2 VBG HCO3 VBG Total CO2 VBG O2 Sat (Calc) VBG Base Excess VBG Potassium A-a O2 Difference 34.0 Hgb O2 Saturation 96.0 Glucose Lactate FiO2 32.0 Crit Value Called To Dr emery [email or web address] Crit Value Called By Devon Crit Value Read Back Y Blood Gas Notified Time 402 Sodium 123 L Potassium 3.4 L Chloride 87 L Carbon Dioxide 25 Anion Gap 14 BUN 11 Creatinine 0.3 L Est GFR ( Amer) > 60 Est GFR (Non-Af Amer) > 60 POC Glucose (mg/dL) Random Glucose 204 H Serum Osmolality Calcium 7.3 L Phosphorus Magnesium Total Bilirubin AST ALT Alkaline Phosphatase Ammonia Troponin I Total Protein Albumin Globulin Albumin/Globulin Ratio Thyroxine (T4) 7.16 Total T3 0.804 L TSH 3rd Generation 0.77 Venous Blood Potassium Urine Osmolality 623 Ur Random Sodium 139 Ur Random Potassium 41.4 Urine Opiates Screen Urine Methadone Screen Ur Barbiturates Screen Ur Phencyclidine Scrn Ur Amphetamines Screen U Benzodiazepines Scrn U Oth Cocaine Metabols U Cannabinoids Screen Alcohol, Quantitative Blood Type Blood Type Confirm Antibody Screen BBK History Checked 05/18/18 05/18/18 05/18/18 04:12 04:35 06:30 WBC 17.8 H RBC 4.05 Hgb 12.2 Hct 35.7 MCV 88.3 D MCH 30.2 MCHC 34.2 RDW 13.0 Plt Count 287 MPV Neut % (Auto) Lymph % (Auto) [place] % (Auto) Eos % (Auto) Baso % (Auto) Neut # (Auto) Lymph # (Auto) [place] # (Auto) Eos # (Auto) Baso # (Auto) PT INR APTT pCO2 pO2 HCO3 ABG pH ABG Total CO2 ABG O2 Saturation ABG O2 Content ABG Base Excess ABG Hemoglobin ABG Carboxyhemoglobin POC ABG HHb (Measured) ABG Methemoglobin ABG O2 Capacity Yousuf Test VBG pH VBG pCO2 VBG HCO3 VBG Total CO2 VBG O2 Sat (Calc) VBG Base Excess VBG Potassium A-a O2 Difference Hgb O2 Saturation Glucose Lactate FiO2 Crit Value Called To Crit Value Called By Crit Value Read Back Blood Gas Notified Time Sodium Potassium Chloride Carbon Dioxide Anion Gap BUN Creatinine Est GFR ( Amer) Est GFR (Non-Af Amer) POC Glucose (mg/dL) 164 H Random Glucose Serum Osmolality 258 L Calcium Phosphorus Magnesium Total Bilirubin AST ALT Alkaline Phosphatase Ammonia Troponin I Total Protein Albumin Globulin Albumin/Globulin Ratio Thyroxine (T4) Total T3 TSH 3rd Generation Venous Blood Potassium Urine Osmolality Ur Random Sodium Ur Random Potassium Urine Opiates Screen Urine Methadone Screen Ur Barbiturates Screen Ur Phencyclidine Scrn Ur Amphetamines Screen U Benzodiazepines Scrn U Oth Cocaine Metabols U Cannabinoids Screen Alcohol, Quantitative Blood Type Blood Type Confirm Antibody Screen BBK History Checked 05/18/18 05/18/18 05/18/18 06:45 06:45 10:46 WBC RBC Hgb Hct MCV MCH MCHC RDW Plt Count MPV Neut % (Auto) Lymph % (Auto) [place] % (Auto) Eos % (Auto) Baso % (Auto) Neut # (Auto) Lymph # (Auto) [place] # (Auto) Eos # (Auto) Baso # (Auto) PT INR APTT pCO2 pO2 HCO3 ABG pH ABG Total CO2 ABG O2 Saturation ABG O2 Content ABG Base Excess ABG Hemoglobin ABG Carboxyhemoglobin POC ABG HHb (Measured) ABG Methemoglobin ABG O2 Capacity Yousuf Test VBG pH VBG pCO2 VBG HCO3 VBG Total CO2 VBG O2 Sat (Calc) VBG Base Excess VBG Potassium A-a O2 Difference Hgb O2 Saturation Glucose Lactate FiO2 Crit Value Called To Crit Value Called By Crit Value Read Back Blood Gas Notified Time Sodium 127 L Potassium 3.4 L Chloride 93 L Carbon Dioxide 24 Anion Gap 13 BUN 8 Creatinine 0.3 L Est GFR ( Amer) > 60 Est GFR (Non-Af Amer) > 60 POC Glucose (mg/dL) 133 H Random Glucose 94 Serum Osmolality Calcium 7.9 L Phosphorus 1.9 L Magnesium 1.7 Total Bilirubin 1.3 AST 53 H D ALT 31 Alkaline Phosphatase 71 Ammonia Troponin I Total Protein 6.9 Albumin 3.8 Globulin 3.1 Albumin/Globulin Ratio 1.2 Thyroxine (T4) Total T3 TSH 3rd Generation Venous Blood Potassium Urine Osmolality Ur Random Sodium Ur Random Potassium Urine Opiates Screen Urine Methadone Screen Ur Barbiturates Screen Ur Phencyclidine Scrn Ur Amphetamines Screen U Benzodiazepines Scrn U Oth Cocaine Metabols U Cannabinoids Screen Alcohol, Quantitative Blood Type Blood Type Confirm O POSITIVE Antibody Screen BBK History Checked 05/18/18 11:01 WBC RBC Hgb Hct MCV MCH MCHC RDW Plt Count MPV Neut % (Auto) Lymph % (Auto) [place] % (Auto) Eos % (Auto) Baso % (Auto) Neut # (Auto) Lymph # (Auto) [place] # (Auto) Eos # (Auto) Baso # (Auto) PT INR APTT pCO2 pO2 HCO3 ABG pH ABG Total CO2 ABG O2 Saturation ABG O2 Content ABG Base Excess ABG Hemoglobin ABG Carboxyhemoglobin POC ABG HHb (Measured) ABG Methemoglobin ABG O2 Capacity Yousuf Test VBG pH VBG pCO2 VBG HCO3 VBG Total CO2 VBG O2 Sat (Calc) VBG Base Excess VBG Potassium A-a O2 Difference Hgb O2 Saturation Glucose Lactate FiO2 Crit Value Called To Crit Value Called By Crit Value Read Back Blood Gas Notified Time Sodium Potassium Chloride Carbon Dioxide Anion Gap BUN Creatinine Est GFR ( Amer) Est GFR (Non-Af Amer) POC Glucose (mg/dL) 102 Random Glucose Serum Osmolality Calcium Phosphorus Magnesium Total Bilirubin AST ALT Alkaline Phosphatase Ammonia Troponin I Total Protein Albumin Globulin Albumin/Globulin Ratio Thyroxine (T4) Total T3 TSH 3rd Generation Venous Blood Potassium Urine Osmolality Ur Random Sodium Ur Random Potassium Urine Opiates Screen Urine Methadone Screen Ur Barbiturates Screen Ur Phencyclidine Scrn Ur Amphetamines Screen U Benzodiazepines Scrn U Oth Cocaine Metabols U Cannabinoids Screen Alcohol, Quantitative Blood Type Blood Type Confirm Antibody Screen BBK History Checked Critical Care Progress Note - Nutrition Nutrition: Nutrition Category Date Time Status NPO Diet [DIET] Diets 05/18/18 Breakfast Active Attending/Attestation - Attestation I have personally seen and examined this patient.: Yes I have fully participated in the care of the patient.: Yes I have reviewed all pertinent clinical information: Yes Notes (Text): 05/18/18 13:23 Today: Friday, May 18, 2018 The patient was Seen/interviewed and examined by me at the bedside, Medical records reviewed and Management issues were discussed and formulated with the house staff. Events reviewed I have reviewed all the relevant clinical, laboratory, hemodynamic, radiographic data and medications Pain issues, skin care, head of the bed elevation, glycemic control were addressed. I concur with resident's assessment and plan of care as transcribed in Dr. Romano note. old records reviewed, the most recent admission was in 09/15/2017, when presents to the ED requesting to be checked out, diagnosed with Urinary Tract Infections, Based on prior records she is Alert, Oriented Admitted with altered mental status in the sitting of hyponatremia and other electrolytes derangements Head CT scan negative, Renal and neurology consult appreciated. Patient received 3% NS, most recent sodium level 127, IVF switched to 0.9% NS, K/Mg/Po4 supplemented. Continue current managements, frequent labs, 24H EEG as per neurology, minimize sedations (Patient intermittently agitated and she received 2 mg Ativan x2 times overnight, will use 0.5 mg as needed) Frequent neuro check. Stress Ulcer prophylaxis Not currently indicated. DVT prophylaxis with SCD Code Status: Full code Total critical care time 42 minutes
[2018-05-18] MEDS: Enoxaparin 40 mg Syringe SC SCH ×2 (12:14→17:48)
[2018-05-18] MEDS ORDERED: Potassium Chl 20 mEq in NS 1,000 ML IV SCH (12:15)
[2018-05-18] MEDS: Sodium Chloride 0.9% 1,000 ML IV SCH ×2 (12:17→13:07)
[2018-05-18 16:14] LABS: URINE BACTERIA RARE (<OCC); URINE BILIRUBIN NEGATIVE (NEGATIVE); URINE BLOOD MODERATE (NEGATIVE); URINE CLARITY CLEAR (Clear); URINE COLOR STRAW (YELLOW); URINE GLUCOSE (UA) NEG (Normal); URINE LEUKOCYTE ESTERASE TRACE Leu/uL (Negative); URINE PROTEIN NEGATIVE (NEGATIVE); URINE UROBILINOGEN 0.2-1.0 mg/dL (0.2-1.0)
--- NOTE | 2018-05-18 16:52 | CP.PCM.CON ---
History of Present Illness - History of Present Illness History of Present Illness: 63 y rold woman who was brought in yesterday after having a witnessed prolonged spell of confusion by her 10 year old grandson, appearing to have removed her clothes and lying in partially digested food, who called 911. She was brought to [facility] ER and found to have profound hyponatremia. Video EEG was performed, normal awake and sleep for 24 hours, and she is now awake and stable. SHe has a PMH of DM2, HTN, HLD, and arthritis. ROS: not obtainable. PMH/PSH: as above FH/SH: Patient lives alone, and watches her grandkids. no tobacco, no known history of epilepsy in family. Originally from [facility]. All: nkda. On exam: Patient has been given ativan to control behavior. PERRL. Cn 2-12 normal. EOMI. motor: moving all extremities, gait not tested. patient is very sedated. +2 dtr ul and ll bl. Toes downgoing. no clonus. Past Patient History - Past Medical History & Family History Past Medical History?: Yes - Past Social History Smoking Status: Former Smoker - CARDIAC Hx Cardiac Disorders: Yes (htn, hld) - NEUROLOGICAL Hx Neurological Disorder: Yes - ENDOCRINE/METABOLIC Hx Endocrine Disorders: Yes (dm) - HEMATOLOGICAL/ONCOLOGICAL Hx AIDS: No Hx Human Immunodeficiency Virus (HIV): No - MUSCULOSKELETAL/RHEUMATOLOGICAL Hx Arthritis: Yes - PSYCHIATRIC Hx Substance Use: No - SURGICAL HISTORY Hx Carotid Endarterectomy: Yes - ANESTHESIA Hx Anesthesia: Yes Hx Anesthesia Reactions: No Hx Malignant Hyperthermia: No Meds Allergies/Adverse Reactions: Allergies Allergy/AdvReac Type Severity Reaction Status Date / Time No Known Allergies Allergy Verified 05/28/17 17:21 - Medications Medications: Current Medications Enoxaparin Sodium (Lovenox) 40 mg SC DAILY THOMAS; Protocol Last Admin: 05/18/18 12:14 Dose: Not Given Sodium Chloride (Sodium Chloride 0.9%) 1,000 mls @ 125 mls/hr IV .Q8H THOMAS Stop: 05/18/18 19:44 Last Admin: 05/18/18 13:07 Dose: Not Given Potassium Chloride/Sodium Chloride (Potassium Chl 20 Meq In Ns) 1,000 mls @ 75 mls/hr IV .[id number] THOMAS Stop: 05/19/18 12:12 Last Admin: 05/18/18 13:06 Dose: 75 mls/hr Insulin Human Lispro (Humalog) 0 units SC Q6H THOMAS; Protocol Last Admin: 05/18/18 11:00 Dose: Not Given Results - Vital Signs Recent Vital Signs: Last Vital Signs Temp 99.1 F 05/18/18 16:00 Pulse 102 H 05/18/18 16:00 Resp 23 05/18/18 14:00 BP 121/61 05/18/18 16:00 Pulse Ox 100 05/18/18 16:00 - Labs Result Diagrams: 05/18/18 06:30 05/18/18 10:46 Labs: Laboratory Results - last 24 hr 05/17/18 05/17/18 05/17/18 23:23 23:40 23:40 WBC 20.0 H D RBC 4.26 Hgb 12.6 Hct 38.5 MCV 90.4 D MCH 29.7 MCHC 32.8 L RDW 13.4 Plt Count 330 MPV 8.3 Neut % (Auto) 71.7 Lymph % (Auto) 20.4 Preston % (Auto) 6.8 Eos % (Auto) 0.6 Baso % (Auto) 0.5 Neut # (Auto) 14.3 H Lymph # (Auto) 4.1 Preston # (Auto) 1.4 H Eos # (Auto) 0.1 Baso # (Auto) 0.1 PT INR APTT pCO2 pO2 HCO3 ABG pH ABG Total CO2 ABG O2 Saturation ABG O2 Content ABG Base Excess ABG Hemoglobin ABG Carboxyhemoglobin POC ABG HHb (Measured) ABG Methemoglobin ABG O2 Capacity Yousuf Test VBG pH VBG pCO2 VBG HCO3 VBG Total CO2 VBG O2 Sat (Calc) VBG Base Excess VBG Potassium A-a O2 Difference Hgb O2 Saturation Glucose Lactate FiO2 Crit Value Called To Crit Value Called By Crit Value Read Back Blood Gas Notified Time Sodium 122 L Potassium 3.3 L Chloride 82 L Carbon Dioxide 20 L Anion Gap 23 H BUN 11 Creatinine 0.4 L Est GFR ( Amer) > 60 Est GFR (Non-Af Amer) > 60 POC Glucose (mg/dL) 238 H Random Glucose 273 H Serum Osmolality Calcium 8.1 L Phosphorus 2.3 L Magnesium 1.5 L Total Bilirubin 1.2 AST 41 H D ALT 25 Alkaline Phosphatase 102 Ammonia Troponin I < 0.0120 Total Protein 7.8 Albumin 4.6 Globulin 3.2 Albumin/Globulin Ratio 1.5 Thyroxine (T4) Total T3 TSH 3rd Generation Venous Blood Potassium Urine Color Urine Clarity Urine pH Ur Specific [place] Urine Protein Urine Glucose (UA) Urine Ketones Urine Blood Urine Nitrate Urine Bilirubin Urine Urobilinogen Ur Leukocyte Esterase Urine RBC (Auto) Urine Microscopic WBC Urine Bacteria Urine Osmolality Ur Random Sodium Ur Random Potassium Urine Opiates Screen Urine Methadone Screen Ur Barbiturates Screen Ur Phencyclidine Scrn Ur Amphetamines Screen U Benzodiazepines Scrn U Oth Cocaine Metabols U Cannabinoids Screen Alcohol, Quantitative < 10 Blood Type Blood Type Confirm Antibody Screen BBK History Checked 05/17/18 05/17/18 05/17/18 23:40 23:40 23:45 WBC RBC Hgb Hct MCV MCH MCHC RDW Plt Count MPV Neut % (Auto) Lymph % (Auto) Preston % (Auto) Eos % (Auto) Baso % (Auto) Neut # (Auto) Lymph # (Auto) Preston # (Auto) Eos # (Auto) Baso # (Auto) PT 10.5 INR 0.9 APTT 27.1 pCO2 pO2 47 HCO3 ABG pH ABG Total CO2 ABG O2 Saturation ABG O2 Content ABG Base Excess ABG Hemoglobin ABG Carboxyhemoglobin POC ABG HHb (Measured) ABG Methemoglobin ABG O2 Capacity Yousuf Test VBG pH 7.22 L VBG pCO2 47 VBG HCO3 17.8 VBG Total CO2 20.6 L VBG O2 Sat (Calc) 82.2 H VBG Base Excess -8.5 L VBG Potassium 3.2 L A-a O2 Difference Hgb O2 Saturation Glucose 291 H Lactate 9.8 H* FiO2 21.0 Crit Value Called To Dr cornel garcia Crit Value Called By Crit Value Read Back Y Blood Gas Notified Time 2349 Sodium 119.0 L* Potassium Chloride 81.0 L Carbon Dioxide Anion Gap BUN Creatinine Est GFR ( Amer) Est GFR (Non-Af Amer) POC Glucose (mg/dL) Random Glucose Serum Osmolality Calcium Phosphorus Magnesium Total Bilirubin AST ALT Alkaline Phosphatase Ammonia Troponin I Total Protein Albumin Globulin Albumin/Globulin Ratio Thyroxine (T4) Total T3 TSH 3rd Generation Venous Blood Potassium 3.2 L Urine Color Urine Clarity Urine pH Ur Specific [place] Urine Protein Urine Glucose (UA) Urine Ketones Urine Blood Urine Nitrate Urine Bilirubin Urine Urobilinogen Ur Leukocyte Esterase Urine RBC (Auto) Urine Microscopic WBC Urine Bacteria Urine Osmolality Ur Random Sodium Ur Random Potassium Urine Opiates Screen Urine Methadone Screen Ur Barbiturates Screen Ur Phencyclidine Scrn Ur Amphetamines Screen U Benzodiazepines Scrn U Oth Cocaine Metabols U Cannabinoids Screen Alcohol, Quantitative Blood Type O POSITIVE Blood Type Confirm Antibody Screen Negative BBK History Checked No verified bt 05/18/18 05/18/18 05/18/18 00:27 01:02 01:25 WBC RBC Hgb Hct MCV MCH MCHC RDW Plt Count MPV Neut % (Auto) Lymph % (Auto) Preston % (Auto) Eos % (Auto) Baso % (Auto) Neut # (Auto) Lymph # (Auto) Preston # (Auto) Eos # (Auto) Baso # (Auto) PT INR APTT pCO2 pO2 HCO3 ABG pH ABG Total CO2 ABG O2 Saturation ABG O2 Content ABG Base Excess ABG Hemoglobin ABG Carboxyhemoglobin POC ABG HHb (Measured) ABG Methemoglobin ABG O2 Capacity Yousuf Test VBG pH VBG pCO2 VBG HCO3 VBG Total CO2 VBG O2 Sat (Calc) VBG Base Excess VBG Potassium A-a O2 Difference Hgb O2 Saturation Glucose Lactate FiO2 Crit Value Called To Crit Value Called By Crit Value Read Back Blood Gas Notified Time Sodium 120 L* Potassium 3.8 Chloride 85 L Carbon Dioxide 24 Anion Gap 15 BUN 12 Creatinine 0.3 L Est GFR ( Amer) > 60 Est GFR (Non-Af Amer) > 60 POC Glucose (mg/dL) Random Glucose 237 H Serum Osmolality Calcium 7.1 L Phosphorus 2.0 L Magnesium 1.4 L Total Bilirubin AST ALT Alkaline Phosphatase Ammonia 36 Troponin I Total Protein Albumin Globulin Albumin/Globulin Ratio Thyroxine (T4) Total T3 TSH 3rd Generation Venous Blood Potassium Urine Color Urine Clarity Urine pH Ur Specific [place] Urine Protein Urine Glucose (UA) Urine Ketones Urine Blood Urine Nitrate Urine Bilirubin Urine Urobilinogen Ur Leukocyte Esterase Urine RBC (Auto) Urine Microscopic WBC Urine Bacteria Urine Osmolality Ur Random Sodium Ur Random Potassium Urine Opiates Screen Negative Urine Methadone Screen Negative Ur Barbiturates Screen Negative Ur Phencyclidine Scrn Negative Ur Amphetamines Screen Negative U Benzodiazepines Scrn Negative U Oth Cocaine Metabols Negative U Cannabinoids Screen Negative Alcohol, Quantitative Blood Type Blood Type Confirm Antibody Screen BBK History Checked 05/18/18 05/18/18 05/18/18 04:01 04:12 04:12 WBC RBC Hgb Hct MCV MCH MCHC RDW Plt Count MPV Neut % (Auto) Lymph % (Auto) Preston % (Auto) Eos % (Auto) Baso % (Auto) Neut # (Auto) Lymph # (Auto) Preston # (Auto) Eos # (Auto) Baso # (Auto) PT INR APTT pCO2 38 pO2 147 H HCO3 26.2 ABG pH 7.44 ABG Total CO2 27.0 ABG O2 Saturation 100.2 H ABG O2 Content 16.9 ABG Base Excess 1.7 ABG Hemoglobin 12.3 ABG Carboxyhemoglobin 1.8 H POC ABG HHb (Measured) -0.2 L ABG Methemoglobin 2.5 ABG O2 Capacity 16.9 Yousuf Test Yes VBG pH VBG pCO2 VBG HCO3 VBG Total CO2 VBG O2 Sat (Calc) VBG Base Excess VBG Potassium A-a O2 Difference 34.0 Hgb O2 Saturation 96.0 Glucose Lactate FiO2 32.0 Crit Value Called To Dr emery siddiqi Crit Value Called By Devon Crit Value Read Back Y Blood Gas Notified Time 402 Sodium 123 L Potassium 3.4 L Chloride 87 L Carbon Dioxide 25 Anion Gap 14 BUN 11 Creatinine 0.3 L Est GFR ( Amer) > 60 Est GFR (Non-Af Amer) > 60 POC Glucose (mg/dL) Random Glucose 204 H Serum Osmolality Calcium 7.3 L Phosphorus Magnesium Total Bilirubin AST ALT Alkaline Phosphatase Ammonia Troponin I Total Protein Albumin Globulin Albumin/Globulin Ratio Thyroxine (T4) 7.16 Total T3 0.804 L TSH 3rd Generation 0.77 Venous Blood Potassium Urine Color Urine Clarity Urine pH Ur Specific [place] Urine Protein Urine Glucose (UA) Urine Ketones Urine Blood Urine Nitrate Urine Bilirubin Urine Urobilinogen Ur Leukocyte Esterase Urine RBC (Auto) Urine Microscopic WBC Urine Bacteria Urine Osmolality 623 Ur Random Sodium 139 Ur Random Potassium 41.4 Urine Opiates Screen Urine Methadone Screen Ur Barbiturates Screen Ur Phencyclidine Scrn Ur Amphetamines Screen U Benzodiazepines Scrn U Oth Cocaine Metabols U Cannabinoids Screen Alcohol, Quantitative Blood Type Blood Type Confirm Antibody Screen BBK History Checked 05/18/18 05/18/18 05/18/18 04:12 04:35 06:30 WBC 17.8 H RBC 4.05 Hgb 12.2 Hct 35.7 MCV 88.3 D MCH 30.2 MCHC 34.2 RDW 13.0 Plt Count 287 MPV Neut % (Auto) Lymph % (Auto) Preston % (Auto) Eos % (Auto) Baso % (Auto) Neut # (Auto) Lymph # (Auto) Preston # (Auto) Eos # (Auto) Baso # (Auto) PT INR APTT pCO2 pO2 HCO3 ABG pH ABG Total CO2 ABG O2 Saturation ABG O2 Content ABG Base Excess ABG Hemoglobin ABG Carboxyhemoglobin POC ABG HHb (Measured) ABG Methemoglobin ABG O2 Capacity Yousuf Test VBG pH VBG pCO2 VBG HCO3 VBG Total CO2 VBG O2 Sat (Calc) VBG Base Excess VBG Potassium A-a O2 Difference Hgb O2 Saturation Glucose Lactate FiO2 Crit Value Called To Crit Value Called By Crit Value Read Back Blood Gas Notified Time Sodium Potassium Chloride Carbon Dioxide Anion Gap BUN Creatinine Est GFR ( Amer) Est GFR (Non-Af Amer) POC Glucose (mg/dL) 164 H Random Glucose Serum Osmolality 258 L Calcium Phosphorus Magnesium Total Bilirubin AST ALT Alkaline Phosphatase Ammonia Troponin I Total Protein Albumin Globulin Albumin/Globulin Ratio Thyroxine (T4) Total T3 TSH 3rd Generation Venous Blood Potassium Urine Color Urine Clarity Urine pH Ur Specific [place] Urine Protein Urine Glucose (UA) Urine Ketones Urine Blood Urine Nitrate Urine Bilirubin Urine Urobilinogen Ur Leukocyte Esterase Urine RBC (Auto) Urine Microscopic WBC Urine Bacteria Urine Osmolality Ur Random Sodium Ur Random Potassium Urine Opiates Screen Urine Methadone Screen Ur Barbiturates Screen Ur Phencyclidine Scrn Ur Amphetamines Screen U Benzodiazepines Scrn U Oth Cocaine Metabols U Cannabinoids Screen Alcohol, Quantitative Blood Type Blood Type Confirm Antibody Screen BBK History Checked 05/18/18 05/18/18 05/18/18 06:45 06:45 10:46 WBC RBC Hgb Hct MCV MCH MCHC RDW Plt Count MPV Neut % (Auto) Lymph % (Auto) Preston % (Auto) Eos % (Auto) Baso % (Auto) Neut # (Auto) Lymph # (Auto) Preston # (Auto) Eos # (Auto) Baso # (Auto) PT INR APTT pCO2 pO2 HCO3 ABG pH ABG Total CO2 ABG O2 Saturation ABG O2 Content ABG Base Excess ABG Hemoglobin ABG Carboxyhemoglobin POC ABG HHb (Measured) ABG Methemoglobin ABG O2 Capacity Yousuf Test VBG pH VBG pCO2 VBG HCO3 VBG Total CO2 VBG O2 Sat (Calc) VBG Base Excess VBG Potassium A-a O2 Difference Hgb O2 Saturation Glucose Lactate FiO2 Crit Value Called To Crit Value Called By Crit Value Read Back Blood Gas Notified Time Sodium 127 L Potassium 3.4 L Chloride 93 L Carbon Dioxide 24 Anion Gap 13 BUN 8 Creatinine 0.3 L Est GFR ( Amer) > 60 Est GFR (Non-Af Amer) > 60 POC Glucose (mg/dL) 133 H Random Glucose 94 Serum Osmolality Calcium 7.9 L Phosphorus 1.9 L Magnesium 1.7 Total Bilirubin 1.3 AST 53 H D ALT 31 Alkaline Phosphatase 71 Ammonia Troponin I Total Protein 6.9 Albumin 3.8 Globulin 3.1 Albumin/Globulin Ratio 1.2 Thyroxine (T4) Total T3 TSH 3rd Generation Venous Blood Potassium Urine Color Urine Clarity Urine pH Ur Specific [place] Urine Protein Urine Glucose (UA) Urine Ketones Urine Blood Urine Nitrate Urine Bilirubin Urine Urobilinogen Ur Leukocyte Esterase Urine RBC (Auto) Urine Microscopic WBC Urine Bacteria Urine Osmolality Ur Random Sodium Ur Random Potassium Urine Opiates Screen Urine Methadone Screen Ur Barbiturates Screen Ur Phencyclidine Scrn Ur Amphetamines Screen U Benzodiazepines Scrn U Oth Cocaine Metabols U Cannabinoids Screen Alcohol, Quantitative Blood Type Blood Type Confirm O POSITIVE Antibody Screen BBK History Checked 05/18/18 05/18/18 05/18/18 11:01 15:56 16:37 WBC RBC Hgb Hct MCV MCH MCHC RDW Plt Count MPV Neut % (Auto) Lymph % (Auto) Preston % (Auto) Eos % (Auto) Baso % (Auto) Neut # (Auto) Lymph # (Auto) Preston # (Auto) Eos # (Auto) Baso # (Auto) PT INR APTT pCO2 pO2 HCO3 ABG pH ABG Total CO2 ABG O2 Saturation ABG O2 Content ABG Base Excess ABG Hemoglobin ABG Carboxyhemoglobin POC ABG HHb (Measured) ABG Methemoglobin ABG O2 Capacity Yousuf Test VBG pH VBG pCO2 VBG HCO3 VBG Total CO2 VBG O2 Sat (Calc) VBG Base Excess VBG Potassium A-a O2 Difference Hgb O2 Saturation Glucose Lactate FiO2 Crit Value Called To Crit Value Called By Crit Value Read Back Blood Gas Notified Time Sodium Potassium Chloride Carbon Dioxide Anion Gap BUN Creatinine Est GFR ( Amer) Est GFR (Non-Af Amer) POC Glucose (mg/dL) 102 79 Random Glucose Serum Osmolality Calcium Phosphorus Magnesium Total Bilirubin AST ALT Alkaline Phosphatase Ammonia Troponin I Total Protein Albumin Globulin Albumin/Globulin Ratio Thyroxine (T4) Total T3 TSH 3rd Generation Venous Blood Potassium Urine Color Straw Urine Clarity Clear Urine pH 8.0 Ur Specific [place] 1.006 Urine Protein Negative Urine Glucose (UA) Neg Urine Ketones Negative Urine Blood Moderate Urine Nitrate Negative Urine Bilirubin Negative Urine Urobilinogen 0.2-1.0 Ur Leukocyte Esterase Trace Urine RBC (Auto) 8 H Urine Microscopic WBC 3 Urine Bacteria Rare Urine Osmolality Ur Random Sodium Ur Random Potassium Urine Opiates Screen Urine Methadone Screen Ur Barbiturates Screen Ur Phencyclidine Scrn Ur Amphetamines Screen U Benzodiazepines Scrn U Oth Cocaine Metabols U Cannabinoids Screen Alcohol, Quantitative Blood Type Blood Type Confirm Antibody Screen BBK History Checked Assessment & Plan - Assessment and Plan (Free Text) Assessment: CT head: normal. VEEG: normal. no epileptiform discharges noted. no clinical or subclinical seizures. 63 yr old woman with new onset seizure, that is most likely secondary to hyp onatremia. At this point, I do not feel that she needs to be antiepileptic medications, but we will obtain MRI brain with gonzales before we decide. Thank you DR. iqbal [facility]
[2018-05-18] MEDS ORDERED: Potassium Chl 20 mEq in D5-NS 1,000 ML IV SCH (17:00)
--- NOTE | 2018-05-18 18:56 | CP.PCM.CON ---
History of Present Illness - History of Present Illness History of Present Illness: REASONS FOR CONSULT : SWVWRE HYPONATREMIA .. NA 120 ELECTROLYTES ABN . HYPOKALEMIA .. HYPOMAGNESEMIA .. HYPO PHOSPHATEMIA ALL EMR REVIEWED .. LABS REVIEWED COMPREHENSIVELY .. 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 Mota service HPI: This is a 63 y/o female with MHx likely significant for DM2, HTN, HLD, and arthritis who is brought in by EMS for AMS. Apparently patient was found to be acting unusually and her 9 y/o grandson called 911. Per report, patient was found confused with food spilling from her mouth and with her pants down sitting on the couch. Since arrival in ER, patient has continued to be agitated/confused, and has had to be sedated, so no history could really be obtained from her. ROS: cannot be performed because of AMS MHx: DM2, HTN, HLD, arthritis SHx: Cannot obtain Allergies: NKDA Medications: Per med rec Family Hx: Cannot obtain Social Hx: Unable to obtain Surrogate Dec Mkr: Still pending Past Patient History - Past Social History Smoking Status: Former Smoker - CARDIAC Hx Hypercholesterolemia: Yes Hx Hypertension: Yes - ENDOCRINE/METABOLIC Hx Diabetes Mellitus Type 1: Yes - MUSCULOSKELETAL/RHEUMATOLOGICAL Hx Arthritis: Yes - PSYCHIATRIC Hx Substance Use: No - SURGICAL HISTORY Hx Carotid Endarterectomy: Yes - ANESTHESIA Hx Anesthesia: Yes Hx Anesthesia Reactions: No Hx Malignant Hyperthermia: No Meds Allergies/Adverse Reactions: Allergies Allergy/AdvReac Type Severity Reaction Status Date / Time No Known Allergies Allergy Verified 05/28/17 17:21 - Medications Medications: Current Medications Enoxaparin Sodium (Lovenox) 40 mg SC DAILY THOMAS; Protocol Sodium Chloride (Hypertonic Saline 3%) 500 mls @ 20 mls/hr IV .Q24H THOMAS Stop: 05/18/18 23:53 Last Admin: 05/18/18 01:21 Dose: 20 mls/hr Sodium Chloride (Sodium Chloride 0.9%) 1,000 mls @ 125 mls/hr IV .Q8H THOMAS Stop: 05/18/18 19:44 Insulin Human Lispro (Humalog) 0 units SC Q6H THOMAS; Protocol Lorazepam (Ativan) 2 mg IVP Q6 PRN PRN Reason: Seizures, agitation Physical Exam - Constitutional Appears: Agitated, Confused - Head Exam Head Exam: ATRAUMATIC, NORMOCEPHALIC - ENT Exam ENT Exam: Mucous Membranes Moist - Neck Exam Neck exam: Positive for: Full Rom - Respiratory Exam Respiratory Exam: Clear to Auscultation Bilateral, NORMAL BREATHING PATTERN - Cardiovascular Exam Cardiovascular Exam: Tachycardia, REGULAR RHYTHM, +S1, +S2 - GI/Abdominal Exam GI & Abdominal Exam: Normal Bowel Sounds, Soft - Extremities Exam Extremities exam: Positive for: full ROM, normal inspection - Neurological Exam Neurological exam: Altered Additional comments: Past Patient History - Past Medical History & Family History Past Medical History?: Yes - Past Social History Smoking Status: Former Smoker - CARDIAC Hx Cardiac Disorders: Yes (htn, hld) - NEUROLOGICAL Hx Neurological Disorder: Yes - ENDOCRINE/METABOLIC Hx Endocrine Disorders: Yes (dm) - HEMATOLOGICAL/ONCOLOGICAL Hx AIDS: No Hx Human Immunodeficiency Virus (HIV): No - MUSCULOSKELETAL/RHEUMATOLOGICAL Hx Arthritis: Yes - PSYCHIATRIC Hx Substance Use: No - SURGICAL HISTORY Hx Carotid Endarterectomy: Yes - ANESTHESIA Hx Anesthesia: Yes Hx Anesthesia Reactions: No Hx Malignant Hyperthermia: No Meds Allergies/Adverse Reactions: Allergies Allergy/AdvReac Type Severity Reaction Status Date / Time No Known Allergies Allergy Verified 05/28/17 17:21 - Medications Medications: Current Medications Enoxaparin Sodium (Lovenox) 40 mg SC DAILY THOMAS; Protocol Last Admin: 05/18/18 17:48 Dose: 40 mg Sodium Chloride (Sodium Chloride 0.9%) 1,000 mls @ 125 mls/hr IV .Q8H THOMAS Stop: 05/18/18 19:44 Last Admin: 05/18/18 13:07 Dose: Not Given Potassium Chloride/Dextrose/Sod Cl (Potassium Chl 20 Meq In D5-Ns) 1,000 mls @ 75 mls/hr IV .[id number] THOMAS Stop: 05/19/18 16:51 Last Admin: 05/18/18 17:49 Dose: 75 mls/hr Insulin Human Lispro (Humalog) 0 units SC Q6H THOMAS; Protocol Last Admin: 05/18/18 17:47 Dose: Not Given Results - Vital Signs Recent Vital Signs: Last Vital Signs Temp 99.1 F 05/18/18 16:00 Pulse 83 05/18/18 18:00 Resp 22 05/18/18 18:00 BP 103/52 L 05/18/18 18:00 Pulse Ox 100 05/18/18 18:00 - Labs Result Diagrams: 05/18/18 06:30 05/18/18 10:46 Labs: Laboratory Results - last 24 hr 05/17/18 05/17/18 05/17/18 23:23 23:40 23:40 WBC 20.0 H D RBC 4.26 Hgb 12.6 Hct 38.5 MCV 90.4 D MCH 29.7 MCHC 32.8 L RDW 13.4 Plt Count 330 MPV 8.3 Neut % (Auto) 71.7 Lymph % (Auto) 20.4 Turner % (Auto) 6.8 Eos % (Auto) 0.6 Baso % (Auto) 0.5 Neut # (Auto) 14.3 H Lymph # (Auto) 4.1 Turner # (Auto) 1.4 H Eos # (Auto) 0.1 Baso # (Auto) 0.1 PT INR APTT pCO2 pO2 HCO3 ABG pH ABG Total CO2 ABG O2 Saturation ABG O2 Content ABG Base Excess ABG Hemoglobin ABG Carboxyhemoglobin POC ABG HHb (Measured) ABG Methemoglobin ABG O2 Capacity Yousuf Test VBG pH VBG pCO2 VBG HCO3 VBG Total CO2 VBG O2 Sat (Calc) VBG Base Excess VBG Potassium A-a O2 Difference Hgb O2 Saturation Glucose Lactate FiO2 Crit Value Called To Crit Value Called By Crit Value Read Back Blood Gas Notified Time Sodium 122 L Potassium 3.3 L Chloride 82 L Carbon Dioxide 20 L Anion Gap 23 H BUN 11 Creatinine 0.4 L Est GFR ( Amer) > 60 Est GFR (Non-Af Amer) > 60 POC Glucose (mg/dL) 238 H Random Glucose 273 H Serum Osmolality Calcium 8.1 L Phosphorus 2.3 L Magnesium 1.5 L Total Bilirubin 1.2 AST 41 H D ALT 25 Alkaline Phosphatase 102 Ammonia Troponin I < 0.0120 Total Protein 7.8 Albumin 4.6 Globulin 3.2 Albumin/Globulin Ratio 1.5 Thyroxine (T4) Total T3 TSH 3rd Generation Venous Blood Potassium Urine Color Urine Clarity Urine pH Ur Specific [place] Urine Protein Urine Glucose (UA) Urine Ketones Urine Blood Urine Nitrate Urine Bilirubin Urine Urobilinogen Ur Leukocyte Esterase Urine RBC (Auto) Urine Microscopic WBC Urine Bacteria Urine Osmolality Ur Random Sodium Ur Random Potassium Urine Opiates Screen Urine Methadone Screen Ur Barbiturates Screen Ur Phencyclidine Scrn Ur Amphetamines Screen U Benzodiazepines Scrn U Oth Cocaine Metabols U Cannabinoids Screen Alcohol, Quantitative < 10 Blood Type Blood Type Confirm Antibody Screen BBK History Checked 05/17/18 05/17/18 05/17/18 23:40 23:40 23:45 WBC RBC Hgb Hct MCV MCH MCHC RDW Plt Count MPV Neut % (Auto) Lymph % (Auto) Turner % (Auto) Eos % (Auto) Baso % (Auto) Neut # (Auto) Lymph # (Auto) Turner # (Auto) Eos # (Auto) Baso # (Auto) PT 10.5 INR 0.9 APTT 27.1 pCO2 pO2 47 HCO3 ABG pH ABG Total CO2 ABG O2 Saturation ABG O2 Content ABG Base Excess ABG Hemoglobin ABG Carboxyhemoglobin POC ABG HHb (Measured) ABG Methemoglobin ABG O2 Capacity Yousuf Test VBG pH 7.22 L VBG pCO2 47 VBG HCO3 17.8 VBG Total CO2 20.6 L VBG O2 Sat (Calc) 82.2 H VBG Base Excess -8.5 L VBG Potassium 3.2 L A-a O2 Difference Hgb O2 Saturation Glucose 291 H Lactate 9.8 H* FiO2 21.0 Crit Value Called To Dr cornel garcia Crit Value Called By Crit Value Read Back Y Blood Gas Notified Time 2349 Sodium 119.0 L* Potassium Chloride 81.0 L Carbon Dioxide Anion Gap BUN Creatinine Est GFR ( Amer) Est GFR (Non-Af Amer) POC Glucose (mg/dL) Random Glucose Serum Osmolality Calcium Phosphorus Magnesium Total Bilirubin AST ALT Alkaline Phosphatase Ammonia Troponin I Total Protein Albumin Globulin Albumin/Globulin Ratio Thyroxine (T4) Total T3 TSH 3rd Generation Venous Blood Potassium 3.2 L Urine Color Urine Clarity Urine pH Ur Specific [place] Urine Protein Urine Glucose (UA) Urine Ketones Urine Blood Urine Nitrate Urine Bilirubin Urine Urobilinogen Ur Leukocyte Esterase Urine RBC (Auto) Urine Microscopic WBC Urine Bacteria Urine Osmolality Ur Random Sodium Ur Random Potassium Urine Opiates Screen Urine Methadone Screen Ur Barbiturates Screen Ur Phencyclidine Scrn Ur Amphetamines Screen U Benzodiazepines Scrn U Oth Cocaine Metabols U Cannabinoids Screen Alcohol, Quantitative Blood Type O POSITIVE Blood Type Confirm Antibody Screen Negative BBK History Checked No verified bt 05/18/18 05/18/18 05/18/18 00:27 01:02 01:25 WBC RBC Hgb Hct MCV MCH MCHC RDW Plt Count MPV Neut % (Auto) Lymph % (Auto) Turner % (Auto) Eos % (Auto) Baso % (Auto) Neut # (Auto) Lymph # (Auto) Turner # (Auto) Eos # (Auto) Baso # (Auto) PT INR APTT pCO2 pO2 HCO3 ABG pH ABG Total CO2 ABG O2 Saturation ABG O2 Content ABG Base Excess ABG Hemoglobin ABG Carboxyhemoglobin POC ABG HHb (Measured) ABG Methemoglobin ABG O2 Capacity Yousuf Test VBG pH VBG pCO2 VBG HCO3 VBG Total CO2 VBG O2 Sat (Calc) VBG Base Excess VBG Potassium A-a O2 Difference Hgb O2 Saturation Glucose Lactate FiO2 Crit Value Called To Crit Value Called By Crit Value Read Back Blood Gas Notified Time Sodium 120 L* Potassium 3.8 Chloride 85 L Carbon Dioxide 24 Anion Gap 15 BUN 12 Creatinine 0.3 L Est GFR ( Amer) > 60 Est GFR (Non-Af Amer) > 60 POC Glucose (mg/dL) Random Glucose 237 H Serum Osmolality Calcium 7.1 L Phosphorus 2.0 L Magnesium 1.4 L Total Bilirubin AST ALT Alkaline Phosphatase Ammonia 36 Troponin I Total Protein Albumin Globulin Albumin/Globulin Ratio Thyroxine (T4) Total T3 TSH 3rd Generation Venous Blood Potassium Urine Color Urine Clarity Urine pH Ur Specific [place] Urine Protein Urine Glucose (UA) Urine Ketones Urine Blood Urine Nitrate Urine Bilirubin Urine Urobilinogen Ur Leukocyte Esterase Urine RBC (Auto) Urine Microscopic WBC Urine Bacteria Urine Osmolality Ur Random Sodium Ur Random Potassium Urine Opiates Screen Negative Urine Methadone Screen Negative Ur Barbiturates Screen Negative Ur Phencyclidine Scrn Negative Ur Amphetamines Screen Negative U Benzodiazepines Scrn Negative U Oth Cocaine Metabols Negative U Cannabinoids Screen Negative Alcohol, Quantitative Blood Type Blood Type Confirm Antibody Screen BBK History Checked 05/18/18 05/18/18 05/18/18 04:01 04:12 04:12 WBC RBC Hgb Hct MCV MCH MCHC RDW Plt Count MPV Neut % (Auto) Lymph % (Auto) Turner % (Auto) Eos % (Auto) Baso % (Auto) Neut # (Auto) Lymph # (Auto) Turner # (Auto) Eos # (Auto) Baso # (Auto) PT INR APTT pCO2 38 pO2 147 H HCO3 26.2 ABG pH 7.44 ABG Total CO2 27.0 ABG O2 Saturation 100.2 H ABG O2 Content 16.9 ABG Base Excess 1.7 ABG Hemoglobin 12.3 ABG Carboxyhemoglobin 1.8 H POC ABG HHb (Measured) -0.2 L ABG Methemoglobin 2.5 ABG O2 Capacity 16.9 Yousuf Test Yes VBG pH VBG pCO2 VBG HCO3 VBG Total CO2 VBG O2 Sat (Calc) VBG Base Excess VBG Potassium A-a O2 Difference 34.0 Hgb O2 Saturation 96.0 Glucose Lactate FiO2 32.0 Crit Value Called To Dr emery siddiqi Crit Value Called By Devon Crit Value Read Back Y Blood Gas Notified Time 402 Sodium 123 L Potassium 3.4 L Chloride 87 L Carbon Dioxide 25 Anion Gap 14 BUN 11 Creatinine 0.3 L Est GFR ( Amer) > 60 Est GFR (Non-Af Amer) > 60 POC Glucose (mg/dL) Random Glucose 204 H Serum Osmolality Calcium 7.3 L Phosphorus Magnesium Total Bilirubin AST ALT Alkaline Phosphatase Ammonia Troponin I Total Protein Albumin Globulin Albumin/Globulin Ratio Thyroxine (T4) 7.16 Total T3 0.804 L TSH 3rd Generation 0.77 Venous Blood Potassium Urine Color Urine Clarity Urine pH Ur Specific [place] Urine Protein Urine Glucose (UA) Urine Ketones Urine Blood Urine Nitrate Urine Bilirubin Urine Urobilinogen Ur Leukocyte Esterase Urine RBC (Auto) Urine Microscopic WBC Urine Bacteria Urine Osmolality 623 Ur Random Sodium 139 Ur Random Potassium 41.4 Urine Opiates Screen Urine Methadone Screen Ur Barbiturates Screen Ur Phencyclidine Scrn Ur Amphetamines Screen U Benzodiazepines Scrn U Oth Cocaine Metabols U Cannabinoids Screen Alcohol, Quantitative Blood Type Blood Type Confirm Antibody Screen BBK History Checked 05/18/18 05/18/18 05/18/18 04:12 04:35 06:30 WBC 17.8 H RBC 4.05 Hgb 12.2 Hct 35.7 MCV 88.3 D MCH 30.2 MCHC 34.2 RDW 13.0 Plt Count 287 MPV Neut % (Auto) Lymph % (Auto) Turner % (Auto) Eos % (Auto) Baso % (Auto) Neut # (Auto) Lymph # (Auto) Turner # (Auto) Eos # (Auto) Baso # (Auto) PT INR APTT pCO2 pO2 HCO3 ABG pH ABG Total CO2 ABG O2 Saturation ABG O2 Content ABG Base Excess ABG Hemoglobin ABG Carboxyhemoglobin POC ABG HHb (Measured) ABG Methemoglobin ABG O2 Capacity Yousuf Test VBG pH VBG pCO2 VBG HCO3 VBG Total CO2 VBG O2 Sat (Calc) VBG Base Excess VBG Potassium A-a O2 Difference Hgb O2 Saturation Glucose Lactate FiO2 Crit Value Called To Crit Value Called By Crit Value Read Back Blood Gas Notified Time Sodium Potassium Chloride Carbon Dioxide Anion Gap BUN Creatinine Est GFR ( Amer) Est GFR (Non-Af Amer) POC Glucose (mg/dL) 164 H Random Glucose Serum Osmolality 258 L Calcium Phosphorus Magnesium Total Bilirubin AST ALT Alkaline Phosphatase Ammonia Troponin I Total Protein Albumin Globulin Albumin/Globulin Ratio Thyroxine (T4) Total T3 TSH 3rd Generation Venous Blood Potassium Urine Color Urine Clarity Urine pH Ur Specific [place] Urine Protein Urine Glucose (UA) Urine Ketones Urine Blood Urine Nitrate Urine Bilirubin Urine Urobilinogen Ur Leukocyte Esterase Urine RBC (Auto) Urine Microscopic WBC Urine Bacteria Urine Osmolality Ur Random Sodium Ur Random Potassium Urine Opiates Screen Urine Methadone Screen Ur Barbiturates Screen Ur Phencyclidine Scrn Ur Amphetamines Screen U Benzodiazepines Scrn U Oth Cocaine Metabols U Cannabinoids Screen Alcohol, Quantitative Blood Type Blood Type Confirm Antibody Screen BBK History Checked 05/18/18 05/18/18 05/18/18 06:45 06:45 10:46 WBC RBC Hgb Hct MCV MCH MCHC RDW Plt Count MPV Neut % (Auto) Lymph % (Auto) Turner % (Auto) Eos % (Auto) Baso % (Auto) Neut # (Auto) Lymph # (Auto) Turner # (Auto) Eos # (Auto) Baso # (Auto) PT INR APTT pCO2 pO2 HCO3 ABG pH ABG Total CO2 ABG O2 Saturation ABG O2 Content ABG Base Excess ABG Hemoglobin ABG Carboxyhemoglobin POC ABG HHb (Measured) ABG Methemoglobin ABG O2 Capacity Yousuf Test VBG pH VBG pCO2 VBG HCO3 VBG Total CO2 VBG O2 Sat (Calc) VBG Base Excess VBG Potassium A-a O2 Difference Hgb O2 Saturation Glucose Lactate FiO2 Crit Value Called To Crit Value Called By Crit Value Read Back Blood Gas Notified Time Sodium 127 L Potassium 3.4 L Chloride 93 L Carbon Dioxide 24 Anion Gap 13 BUN 8 Creatinine 0.3 L Est GFR ( Amer) > 60 Est GFR (Non-Af Amer) > 60 POC Glucose (mg/dL) 133 H Random Glucose 94 Serum Osmolality Calcium 7.9 L Phosphorus 1.9 L Magnesium 1.7 Total Bilirubin 1.3 AST 53 H D ALT 31 Alkaline Phosphatase 71 Ammonia Troponin I Total Protein 6.9 Albumin 3.8 Globulin 3.1 Albumin/Globulin Ratio 1.2 Thyroxine (T4) Total T3 TSH 3rd Generation Venous Blood Potassium Urine Color Urine Clarity Urine pH Ur Specific [place] Urine Protein Urine Glucose (UA) Urine Ketones Urine Blood Urine Nitrate Urine Bilirubin Urine Urobilinogen Ur Leukocyte Esterase Urine RBC (Auto) Urine Microscopic WBC Urine Bacteria Urine Osmolality Ur Random Sodium Ur Random Potassium Urine Opiates Screen Urine Methadone Screen Ur Barbiturates Screen Ur Phencyclidine Scrn Ur Amphetamines Screen U Benzodiazepines Scrn U Oth Cocaine Metabols U Cannabinoids Screen Alcohol, Quantitative Blood Type Blood Type Confirm O POSITIVE Antibody Screen BBK History Checked 05/18/18 05/18/18 05/18/18 11:01 15:56 16:37 WBC RBC Hgb Hct MCV MCH MCHC RDW Plt Count MPV Neut % (Auto) Lymph % (Auto) Turner % (Auto) Eos % (Auto) Baso % (Auto) Neut # (Auto) Lymph # (Auto) Turner # (Auto) Eos # (Auto) Baso # (Auto) PT INR APTT pCO2 pO2 HCO3 ABG pH ABG Total CO2 ABG O2 Saturation ABG O2 Content ABG Base Excess ABG Hemoglobin ABG Carboxyhemoglobin POC ABG HHb (Measured) ABG Methemoglobin ABG O2 Capacity Yousuf Test VBG pH VBG pCO2 VBG HCO3 VBG Total CO2 VBG O2 Sat (Calc) VBG Base Excess VBG Potassium A-a O2 Difference Hgb O2 Saturation Glucose Lactate FiO2 Crit Value Called To Crit Value Called By Crit Value Read Back Blood Gas Notified Time Sodium Potassium Chloride Carbon Dioxide Anion Gap BUN Creatinine Est GFR ( Amer) Est GFR (Non-Af Amer) POC Glucose (mg/dL) 102 79 Random Glucose Serum Osmolality Calcium Phosphorus Magnesium Total Bilirubin AST ALT Alkaline Phosphatase Ammonia Troponin I Total Protein Albumin Globulin Albumin/Globulin Ratio Thyroxine (T4) Total T3 TSH 3rd Generation Venous Blood Potassium Urine Color Straw Urine Clarity Clear Urine pH 8.0 Ur Specific [place] 1.006 Urine Protein Negative Urine Glucose (UA) Neg Urine Ketones Negative Urine Blood Moderate Urine Nitrate Negative Urine Bilirubin Negative Urine Urobilinogen 0.2-1.0 Ur Leukocyte Esterase Trace Urine RBC (Auto) 8 H Urine Microscopic WBC 3 Urine Bacteria Rare Urine Osmolality Ur Random Sodium Ur Random Potassium Urine Opiates Screen Urine Methadone Screen Ur Barbiturates Screen Ur Phencyclidine Scrn Ur Amphetamines Screen U Benzodiazepines Scrn U Oth Cocaine Metabols U Cannabinoids Screen Alcohol, Quantitative Blood Type Blood Type Confirm Antibody Screen BBK History Checked Assessment & Plan - Assessment and Plan (Free Text) Assessment: HYPONATREMIA .. ISOVOLEMIC HYPONATREMIA .. MOST CONSISTANT WITH SIADH HYPO KALEMIA HYPOMAGNESEMIA SYNDROME HYPO PHOSPHATEMIA SIEZURE DISORDER HTN DM HYPERLEDIPEMIA P : D/C HYPERTONIC SALINE K PHOSPHATE 30 MMOL ICSS .. GIVEN C/O PRESENT CARE C/O PRESENT MANAGEMENT CLOSE MONITORING LYTES IN AM
--- NOTE | 2018-05-18 19:06 | CARD ---
APPROVED REPORT Date of service: 05/18/2018 EKG Measurement Heart [id number] <Conclusion> Normal sinus rhythm Nonspecific ST abnormality Prolonged QT Abnormal ECG
[2018-05-18 19:09] LABS: ALB/GLOB RATIO 1.2 (1.0-2.1); ALBUMIN 3.6 g/dL (3.5-5.0); ALT/SGPT 36 U/L (9-52); AST/SGOT 46 U/L (14-36); BLOOD UREA NITROGEN 7 mg/dl (7-17); CALCIUM 7.6 mg/dL (8.4-10.2); GFR NON-AFRICAN AMERICAN > 60
[2018-05-18 23:15] LABS: ALB/GLOB RATIO 1.2 (1.0-2.1); ALBUMIN 3.6 g/dL (3.5-5.0); ALT/SGPT 32 U/L (9-52); AST/SGOT 52 U/L (14-36); BLOOD UREA NITROGEN 7 mg/dl (7-17); CALCIUM 7.8 mg/dL (8.4-10.2); GFR NON-AFRICAN AMERICAN > 60
[2018-05-19 04:38] LABS: BASO % 0.5 % (0.0-2.0); EOS # 0.1 K/uL (0.0-0.7); EOS % 0.9 % (0.0-4.0); HEMOGLOBIN 12.4 g/dL (12.0-16.0); LYMPH # 2.3 K/uL (1.0-4.3); LYMPH % 26.3 % (20.0-40.0); MEAN CELL VOLUME 90.1 fl (81.0-99.0); MEAN CORPUSCULAR HEMOGLOBIN 30.1 pg (27.0-31.0); MEAN CORPUSCULAR HGB CONC 33.4 g/dL (33.0-37.0); MEAN PLATELET VOLUME 8.4 fl (7.2-11.7); MONO # 0.7 K/uL (0.0-0.8); MONO % 7.5 % (0.0-10.0); NEUT # 5.7 K/uL (1.8-7.0); NEUT % 64.8 % (50.0-75.0); RBC 4.12 Mil/uL (3.80-5.20); RED CELL DISTRIBUTION WIDTH 13.3 % (11.5-14.5); WHITE BLOOD COUNT 8.8 K/uL (4.8-10.8)
[2018-05-19] MEDS: Insulin Lispro (humaLOG) 100 Units/ml Inj SC SCH ×3 (04:49→16:52)
[2018-05-19 05:03] LABS: ALB/GLOB RATIO 1.1 (1.0-2.1); ALBUMIN 3.3 g/dL (3.5-5.0); ALT/SGPT 24 U/L (9-52); AST/SGOT 42 U/L (14-36); BLOOD UREA NITROGEN 8 mg/dl (7-17); CALCIUM 7.5 mg/dL (8.4-10.2); GFR NON-AFRICAN AMERICAN > 60
--- NOTE | 2018-05-19 07:48 | CP.PCM.PN ---
Subjective - Date & Time of Evaluation Date of Evaluation: 05/19/18 Time of Evaluation: 07:48 - Subjective Subjective: Patient seen and examined this morning in ICU with Dr Mota, patient more awake and oriented but still some confused asking "why am I here", no overnight events, afebrile, VSS I/O: 1805/2100 Objective - Vital Signs/Intake and Output Vital Signs (last 24 hours): Temp Pulse Resp BP Pulse Ox 98.7 F 72 16 121/53 L 97 05/19/18 07:31 05/19/18 07:31 05/19/18 07:31 05/19/18 07:31 05/19/18 07:31 Intake and Output: 05/19/18 05/19/18 06:59 18:59 Intake Total 900 Output Total 300 Balance 600 - Medications Medications: Current Medications Enoxaparin Sodium (Lovenox) 40 mg SC DAILY THOMAS; Protocol Last Admin: 05/18/18 17:48 Dose: 40 mg Potassium Chloride (Potassium Chloride 20 Meq/100 Ml) 100 mls @ 50 mls/hr IVPB Q2 THOMAS Stop: 05/19/18 11:59 Insulin Human Lispro (Humalog) 0 units SC Q6H THOMAS; Protocol Last Admin: 05/19/18 04:49 Dose: Not Given - Labs Labs: 05/19/18 04:00 05/19/18 04:00 PT 10.5 Seconds (9.8-13.1) 05/17/18 23:40 INR 0.9 05/17/18 23:40 APTT 27.1 Seconds (25.6-37.1) 05/17/18 23:40 - Constitutional Appears: No Acute Distress, Confused - Head Exam Head Exam: NORMAL INSPECTION - Eye Exam Eye Exam: EOMI - Respiratory Exam Respiratory Exam: Clear to Ausculation Bilateral. absent: Decreased Breath Sounds, Rales, Rhonchi, Wheezes - Cardiovascular Exam Cardiovascular Exam: REGULAR RHYTHM, +S1, +S2 - GI/Abdominal Exam GI & Abdominal Exam: Soft, Normal Bowel Sounds. absent: Tenderness - Extremities Exam Extremities Exam: absent: Calf Tenderness, Pedal Edema - Neurological Exam Neurological Exam: Alert, Awake. absent: Oriented x3 Assessment and Plan - Assessment and Plan (Free Text) Assessment: 63 y/o female admitted with AMS and hyponatremia. Plan: - afebrile, VSS - r/o seizure, metabolic encephalopathy, or possible TIA/CVA. - Head CT: negative for intracranial mass, hemorrhage or acute infarct. - VEEG: normal. no epileptiform discharges noted. no clinical or subclinical seizures. - f/u MRI - Neurology consult - Nephro consulted, - Leukocytosis resolved - Na today 129 from 133 yesterday, f/u BMP in PM - Kypokalemia, on KCL - NS IV - f/u repeat labs in am - rest of plan as ordered
[2018-05-19] MEDS ORDERED: Potassium Chloride 20 mEq 100 ML IVPB SCH (08:00)
[2018-05-19] MEDS: Enoxaparin 40 mg Syringe SC SCH (08:22)
[2018-05-19] MEDS ORDERED: Sodium Chloride 0.9% 1,000 ML IV SCH ×3 (09:00→11:08)
[2018-05-19] MEDS: Potassium Chloride 20 mEq/15 ml LIQ UD PO SCH ×2 (10:16→16:53)
--- NOTE | 2018-05-19 10:36 | CP.CCUPN ---
CCU Subjective - Physician Review Subjective (Free Text): 05/19/18 10:29 63 y/o F was seen and examined by bedside. Pt is intermittently awake, responsive to verbal and tactile stimulation. Pt is oriented to person only, believes today is Thursday. Pt reports the last thing she remembers is getting home after food shopping. Pt drinks approximately 3-4 glasses of water every day, denies any headache, head trauma, urinary symptoms or visual disturbances. Pt afebrile, with NO acute events overnight. CCU Objective - Vital Signs / Intake & Output Vital Signs (Last 4 hours): Vital Signs Temp Pulse Resp BP Pulse Ox 05/19/18 07:31 98.7 F 72 16 121/53 L 97 Intake and Output (Last 8hrs): Intake & Output 05/18/18 05/19/18 05/19/18 22:59 06:59 14:59 Intake Total 855 600 Output Total 1200 200 Balance -345 400 Weight 76.249 kg Intake: IV 855 600 Output: Urine 1200 200 Urethral (Dong) 1200 200 Stool 0 - Physical Exam Head: Positive for: Atraumatic, Normocephalic Pupils: Positive for: PERRL Mouth: Positive for: Moist Mucous Membranes Nose (External): Positive for: Atraumatic Neck: Positive for: Normal Range of Motion, Trachea Midline. Negative for: Meningeal Signs, JVD, Lymphadenopathy Respiratory/Chest: Positive for: Clear to Auscultation. Negative for: Respiratory Distress, Accessory Muscle Use, Wheezes, Decreased Breath Sounds, Rales Cardiovascular: Positive for: Regular Rate and Rhythm, Normal S1, S2 Abdomen: Positive for: Normal Bowel Sounds. Negative for: Tenderness, Distention, Rebound, Guarding Upper Extremity: Positive for: Normal Inspection. Negative for: Cyanosis, Edema Lower Extremity: Positive for: Normal Inspection. Negative for: Edema, CALF TENDERNESS Skin: Positive for: Warm, Dry Psychiatric: Negative for: Alert, Oriented x 3 - Medications Active Medications: Active Medications Generic Name Dose Route Start Last Admin Trade Name Freq PRN Reason Stop Dose Admin Enoxaparin Sodium 40 mg 05/18/18 09:00 05/19/18 08:22 Lovenox SC 40 mg DAILY THOMAS Administration Protocol Sodium Chloride 1,000 mls @ 42 mls/hr 05/19/18 09:00 05/19/18 10:00 Sodium Chloride 0.9% IV 05/20/18 08:50 42 mls/hr .[id number] THOMAS Administration Insulin Human Lispro 0 units 05/18/18 04:00 05/19/18 04:49 Humalog SC Not Given Q6H [facility] Protocol Potassium Chloride 20 meq 05/19/18 17:00 05/19/18 10:16 Potassium Chloride Oral Soln PO 05/20/18 09:01 20 meq BID THOMAS Administration - Patient Studies Lab Studies: Lab Studies 05/19/18 05/19/18 05/18/18 Range/Units 04:00 04:00 22:57 WBC 8.8 D (4.8-10.8) K/uL RBC 4.12 (3.80-5.20) Mil/uL Hgb 12.4 (12.0-16.0) g/dL Hct 37.1 (34.0-47.0) % MCV 90.1 (81.0-99.0) fl MCH 30.1 (27.0-31.0) pg MCHC 33.4 (33.0-37.0) g/dL RDW 13.3 (11.5-14.5) % Plt Count 266 (130-400) K/uL MPV 8.4 (7.2-11.7) fl Neut % (Auto) 64.8 (50.0-75.0) % Lymph % (Auto) 26.3 (20.0-40.0) % [place] % (Auto) 7.5 (0.0-10.0) % Eos % (Auto) 0.9 (0.0-4.0) % Baso % (Auto) 0.5 (0.0-2.0) % Neut # (Auto) 5.7 (1.8-7.0) K/uL Lymph # (Auto) 2.3 (1.0-4.3) K/uL [place] # (Auto) 0.7 (0.0-0.8) K/uL Eos # (Auto) 0.1 (0.0-0.7) K/uL Baso # (Auto) 0.0 (0.0-0.2) K/uL Sodium 129 L 133 (132-148) mmol/l Potassium 3.2 L 3.6 (3.6-5.0) MMOL/L Chloride 101 100 (98-107) mmol/L Carbon Dioxide 24 25 (22-30) mmol/L Anion Gap 7 L 12 (10-20) BUN 8 7 (7-17) mg/dl Creatinine 0.4 L 0.4 L (0.7-1.2) mg/dl Est GFR ( Amer) > 60 > 60 Est GFR (Non-Af Amer) > 60 > 60 POC Glucose (mg/dL) (65-110) mg/dL Random Glucose 149 H 120 H (65-105) mg/dL Calcium 7.5 L 7.8 L (8.4-10.2) mg/dL Phosphorus 3.2 2.9 (2.5-4.5) mg/dl Magnesium 2.5 H 2.4 H (1.6-2.3) MG/DL Total Bilirubin 1.4 H 1.4 H (0.2-1.3) mg/dl AST 42 H 52 H (14-36) U/L ALT 24 32 (9-52) U/L Alkaline Phosphatase 65 71 (38-126) U/L Total Protein 6.2 L 6.7 (6.3-8.2) G/DL Albumin 3.3 L 3.6 (3.5-5.0) g/dL Globulin 2.9 3.1 (2.2-3.9) gm/dL Albumin/Globulin Ratio 1.1 1.2 (1.0-2.1) Urine Color (YELLOW) Urine Clarity (Clear) Urine pH (5.0-8.0) Ur Specific [place] (1.003-1.030) Urine Protein (NEGATIVE) mg/dL Urine Glucose (UA) (Normal) mg/dL Urine Ketones (NEGATIVE) mg/dL Urine Blood (NEGATIVE) Urine Nitrate (NEGATIVE) Urine Bilirubin (NEGATIVE) Urine Urobilinogen (0.2-1.0) mg/dL Ur Leukocyte Esterase (Negative) Destiny/uL Urine RBC (Auto) (0-3) /hpf Urine Microscopic WBC (0-5) /hpf Urine Bacteria (<OCC) 05/18/18 05/18/18 05/18/18 Range/Units 22:13 18:48 16:37 WBC (4.8-10.8) K/uL RBC (3.80-5.20) Mil/uL Hgb (12.0-16.0) g/dL Hct (34.0-47.0) % MCV (81.0-99.0) fl MCH (27.0-31.0) pg MCHC (33.0-37.0) g/dL RDW (11.5-14.5) % Plt Count (130-400) K/uL MPV (7.2-11.7) fl Neut % (Auto) (50.0-75.0) % Lymph % (Auto) (20.0-40.0) % [place] % (Auto) (0.0-10.0) % Eos % (Auto) (0.0-4.0) % Baso % (Auto) (0.0-2.0) % Neut # (Auto) (1.8-7.0) K/uL Lymph # (Auto) (1.0-4.3) K/uL [place] # (Auto) (0.0-0.8) K/uL Eos # (Auto) (0.0-0.7) K/uL Baso # (Auto) (0.0-0.2) K/uL Sodium 133 (132-148) mmol/l Potassium 3.6 (3.6-5.0) MMOL/L Chloride 102 (98-107) mmol/L Carbon Dioxide 24 (22-30) mmol/L Anion Gap 11 (10-20) BUN 7 (7-17) mg/dl Creatinine 0.4 L (0.7-1.2) mg/dl Est GFR ( Amer) > 60 Est GFR (Non-Af Amer) > 60 POC Glucose (mg/dL) 112 H 79 (65-110) mg/dL Random Glucose 95 (65-105) mg/dL Calcium 7.6 L (8.4-10.2) mg/dL Phosphorus 3.2 (2.5-4.5) mg/dl Magnesium 2.4 H (1.6-2.3) MG/DL Total Bilirubin 1.4 H (0.2-1.3) mg/dl AST 46 H (14-36) U/L ALT 36 (9-52) U/L Alkaline Phosphatase 69 (38-126) U/L Total Protein 6.5 (6.3-8.2) G/DL Albumin 3.6 (3.5-5.0) g/dL Globulin 3.0 (2.2-3.9) gm/dL Albumin/Globulin Ratio 1.2 (1.0-2.1) Urine Color (YELLOW) Urine Clarity (Clear) Urine pH (5.0-8.0) Ur Specific [place] (1.003-1.030) Urine Protein (NEGATIVE) mg/dL Urine Glucose (UA) (Normal) mg/dL Urine Ketones (NEGATIVE) mg/dL Urine Blood (NEGATIVE) Urine Nitrate (NEGATIVE) Urine Bilirubin (NEGATIVE) Urine Urobilinogen (0.2-1.0) mg/dL Ur Leukocyte Esterase (Negative) Destiny/uL Urine RBC (Auto) (0-3) /hpf Urine Microscopic WBC (0-5) /hpf Urine Bacteria (<OCC) 05/18/18 05/18/18 05/18/18 Range/Units 15:56 11:01 10:46 WBC (4.8-10.8) K/uL RBC (3.80-5.20) Mil/uL Hgb (12.0-16.0) g/dL Hct (34.0-47.0) % MCV (81.0-99.0) fl MCH (27.0-31.0) pg MCHC (33.0-37.0) g/dL RDW (11.5-14.5) % Plt Count (130-400) K/uL MPV (7.2-11.7) fl Neut % (Auto) (50.0-75.0) % Lymph % (Auto) (20.0-40.0) % [place] % (Auto) (0.0-10.0) % Eos % (Auto) (0.0-4.0) % Baso % (Auto) (0.0-2.0) % Neut # (Auto) (1.8-7.0) K/uL Lymph # (Auto) (1.0-4.3) K/uL [place] # (Auto) (0.0-0.8) K/uL Eos # (Auto) (0.0-0.7) K/uL Baso # (Auto) (0.0-0.2) K/uL Sodium 127 L (132-148) mmol/l Potassium 3.4 L (3.6-5.0) MMOL/L Chloride 93 L (98-107) mmol/L Carbon Dioxide 24 (22-30) mmol/L Anion Gap 13 (10-20) BUN 8 (7-17) mg/dl Creatinine 0.3 L (0.7-1.2) mg/dl Est GFR ( Amer) > 60 Est GFR (Non-Af Amer) > 60 POC Glucose (mg/dL) 102 (65-110) mg/dL Random Glucose 94 (65-105) mg/dL Calcium 7.9 L (8.4-10.2) mg/dL Phosphorus 1.9 L (2.5-4.5) mg/dl Magnesium 1.7 (1.6-2.3) MG/DL Total Bilirubin 1.3 (0.2-1.3) mg/dl AST 53 H D (14-36) U/L ALT 31 (9-52) U/L Alkaline Phosphatase 71 (38-126) U/L Total Protein 6.9 (6.3-8.2) G/DL Albumin 3.8 (3.5-5.0) g/dL Globulin 3.1 (2.2-3.9) gm/dL Albumin/Globulin Ratio 1.2 (1.0-2.1) Urine Color Straw (YELLOW) Urine Clarity Clear (Clear) Urine pH 8.0 (5.0-8.0) Ur Specific [place] 1.006 (1.003-1.030) Urine Protein Negative (NEGATIVE) mg/dL Urine Glucose (UA) Neg (Normal) mg/dL Urine Ketones Negative (NEGATIVE) mg/dL Urine Blood Moderate (NEGATIVE) Urine Nitrate Negative (NEGATIVE) Urine Bilirubin Negative (NEGATIVE) Urine Urobilinogen 0.2-1.0 (0.2-1.0) mg/dL Ur Leukocyte Esterase Trace (Negative) Destiny/uL Urine RBC (Auto) 8 H (0-3) /hpf Urine Microscopic WBC 3 (0-5) /hpf Urine Bacteria Rare (<OCC) Laboratory Results - last 24 hr 05/18/18 05/18/18 05/18/18 10:46 11:01 15:56 WBC RBC Hgb Hct MCV MCH MCHC RDW Plt Count MPV Neut % (Auto) Lymph % (Auto) [place] % (Auto) Eos % (Auto) Baso % (Auto) Neut # (Auto) Lymph # (Auto) [place] # (Auto) Eos # (Auto) Baso # (Auto) Sodium 127 L Potassium 3.4 L Chloride 93 L Carbon Dioxide 24 Anion Gap 13 BUN 8 Creatinine 0.3 L Est GFR ( Amer) > 60 Est GFR (Non-Af Amer) > 60 POC Glucose (mg/dL) 102 Random Glucose 94 Calcium 7.9 L Phosphorus 1.9 L Magnesium 1.7 Total Bilirubin 1.3 AST 53 H D ALT 31 Alkaline Phosphatase 71 Total Protein 6.9 Albumin 3.8 Globulin 3.1 Albumin/Globulin Ratio 1.2 Urine Color Straw Urine Clarity Clear Urine pH 8.0 Ur Specific [place] 1.006 Urine Protein Negative Urine Glucose (UA) Neg Urine Ketones Negative Urine Blood Moderate Urine Nitrate Negative Urine Bilirubin Negative Urine Urobilinogen 0.2-1.0 Ur Leukocyte Esterase Trace Urine RBC (Auto) 8 H Urine Microscopic WBC 3 Urine Bacteria Rare 05/18/18 05/18/18 05/18/18 16:37 18:48 22:13 WBC RBC Hgb Hct MCV MCH MCHC RDW Plt Count MPV Neut % (Auto) Lymph % (Auto) [place] % (Auto) Eos % (Auto) Baso % (Auto) Neut # (Auto) Lymph # (Auto) [place] # (Auto) Eos # (Auto) Baso # (Auto) Sodium 133 Potassium 3.6 Chloride 102 Carbon Dioxide 24 Anion Gap 11 BUN 7 Creatinine 0.4 L Est GFR ( Amer) > 60 Est GFR (Non-Af Amer) > 60 POC Glucose (mg/dL) 79 112 H Random Glucose 95 Calcium 7.6 L Phosphorus 3.2 Magnesium 2.4 H Total Bilirubin 1.4 H AST 46 H ALT 36 Alkaline Phosphatase 69 Total Protein 6.5 Albumin 3.6 Globulin 3.0 Albumin/Globulin Ratio 1.2 Urine Color Urine Clarity Urine pH Ur Specific [place] Urine Protein Urine Glucose (UA) Urine Ketones Urine Blood Urine Nitrate Urine Bilirubin Urine Urobilinogen Ur Leukocyte Esterase Urine RBC (Auto) Urine Microscopic WBC Urine Bacteria 05/18/18 05/19/18 05/19/18 22:57 04:00 04:00 WBC 8.8 D RBC 4.12 Hgb 12.4 Hct 37.1 MCV 90.1 MCH 30.1 MCHC 33.4 RDW 13.3 Plt Count 266 MPV 8.4 Neut % (Auto) 64.8 Lymph % (Auto) 26.3 [place] % (Auto) 7.5 Eos % (Auto) 0.9 Baso % (Auto) 0.5 Neut # (Auto) 5.7 Lymph # (Auto) 2.3 [place] # (Auto) 0.7 Eos # (Auto) 0.1 Baso # (Auto) 0.0 Sodium 133 129 L Potassium 3.6 3.2 L Chloride 100 101 Carbon Dioxide 25 24 Anion Gap 12 7 L BUN 7 8 Creatinine 0.4 L 0.4 L Est GFR ( Amer) > 60 > 60 Est GFR (Non-Af Amer) > 60 > 60 POC Glucose (mg/dL) Random Glucose 120 H 149 H Calcium 7.8 L 7.5 L Phosphorus 2.9 3.2 Magnesium 2.4 H 2.5 H Total Bilirubin 1.4 H 1.4 H AST 52 H 42 H ALT 32 24 Alkaline Phosphatase 71 65 Total Protein 6.7 6.2 L Albumin 3.6 3.3 L Globulin 3.1 2.9 Albumin/Globulin Ratio 1.2 1.1 Urine Color Urine Clarity Urine pH Ur Specific [place] Urine Protein Urine Glucose (UA) Urine Ketones Urine Blood Urine Nitrate Urine Bilirubin Urine Urobilinogen Ur Leukocyte Esterase Urine RBC (Auto) Urine Microscopic WBC Urine Bacteria Fingerstick Blood Sugar Results: 149 Review of Systems - Constitutional Constitutional: absent: Fever, Sweats - EENT Eyes: absent: Blurred Vision, Change in Vision, Pain, Photophobia Ears: absent: Ear Pain, Tinnitus Nose/Mouth/Throat: absent: Nasal Congestion, Sore Throat - Cardiovascular Cardiovascular: absent: Chest Pain - Respiratory Respiratory: absent: Cough, Dyspnea Critical Care Progress Note - Nutrition Nutrition: Nutrition Category Date Time Status NPO Diet [DIET] Diets 05/18/18 Breakfast Active Assessment/Plan - Assessment and Plan (Free Text) Assessment: 63 y/o f with a PMHx of DM 2, HTN and HLD admitted to ICU due to altered mental status, hyponatremia and electrolyte imbalance. --Awake, stable vital signs. PLAN: 1. Metabolic encephalopathy --Altered mental status, unknown time. Caused by hyponatremia --Awake today, follow commands. --CT Head and EEG was unremarkable. --Neurology on board, Nikolai Terry. --MRI Brain --F/U Swallow evaluation --F/U electrolytes levels. --Follow mental status. 2. Hyponatremia --Serum Na 129-low this morning --Stop D5W IV fluid --Resume IV normal saline at 100mL/hr --Nephrology on board, Dr Jc. --Endocrinology consult, Dr Page --F/U BMP this afternoon. 3. Hypokalemia --Serum K 3.2-low today. --Magnessium serum level-WNL --PO KCl oral soln 20mEq twice. --Endocrinology consult, Dr Page --F/U BMP this afternoon. 4. Hypophosphatemia --Resolved 5. DM2 --Q6h accucheck with SSI --Endocrinology consult, Dr Page. 6. Prophylaxis --Lovenox for DVT prophylaxis Case discussed with Dr Stevenson Montoya PGY-2 - Date & Time Date: 05/19/18 Time: 11:25
[2018-05-19] MEDS ORDERED: Influenza Vaccine (5 YR UP)/PF 60 MCG/0.5 ML SYR IM ONE (10:40)
[2018-05-19] MEDS ORDERED: Gadodiamide 287 MG/ML VIAL (15ML) IV ONE (13:29)
--- NOTE | 2018-05-19 14:43 | CP.PCM.PN ---
Subjective - Date & Time of Evaluation Date of Evaluation: 05/19/18 Time of Evaluation: 14:38 - Subjective Subjective: Neurology Consultation Follow-Up Note: Mrs. Biswas was evaluated in the ICU this afternoon eating lunch. She is currently being monitored and treated for AMS, hyponatremia, and new onset seizure. Per chart review, she has periods of confusion and agitation. She is still pending a MRI Brain. At this time she is pleasant but has periods of confused during the interview and exam. She cannot recall why she was brought to the hospital. She denies headache, dizziness, visual changes, chest pain, shortness of breath, nausea/vomiting , paresthesias. Objective - Vital Signs/Intake and Output Vital Signs (last 24 hours): Temp Pulse Resp BP Pulse Ox 98.7 F 72 18 135/62 99 05/19/18 12:00 05/19/18 12:00 05/19/18 12:00 05/19/18 12:00 05/19/18 12:00 Intake and Output: 05/19/18 05/19/18 06:59 18:59 Intake Total 900 Output Total 300 Balance 600 - Medications Medications: Current Medications Enoxaparin Sodium (Lovenox) 40 mg SC DAILY [facility]OM[facility]; Protocol Last Admin: 05/19/18 08:22 Dose: 40 mg Sodium Chloride (Sodium Chloride 0.9%) 1,000 mls @ 100 mls/hr IV .Q10H [facility] Stop: 05/20/18 08:50 Last Admin: 05/19/18 12:20 Dose: 100 mls/hr Insulin Human Lispro (Humalog) 0 units SC Q6H [facility]; Protocol Last Admin: 05/19/18 12:22 Dose: 1 unit Potassium Chloride (Potassium Chloride Oral Soln) 20 meq PO BID [facility] Stop: 05/20/18 09:01 Last Admin: 05/19/18 10:16 Dose: 20 meq - Labs Labs: 05/19/18 04:00 05/19/18 04:00 PT 10.5 Seconds (9.8-13.1) 05/17/18 23:40 INR 0.9 05/17/18 23:40 APTT 27.1 Seconds (25.6-37.1) 05/17/18 23:40 - Constitutional Appears: Well, Non-toxic, No Acute Distress - Head Exam Head Exam: ATRAUMATIC, NORMAL INSPECTION, NORMOCEPHALIC - Eye Exam Eye Exam: EOMI, Normal appearance, PERRL Pupil Exam: NORMAL ACCOMODATION, PERRL - ENT Exam ENT Exam: Mucous Membranes Moist - Neck Exam Neck Exam: Full ROM - Respiratory Exam Respiratory Exam: NORMAL BREATHING PATTERN - Extremities Exam Extremities Exam: Full ROM - Neurological Exam Neurological Exam: Alert, Awake, CN II-XII Intact, Reflexes Normal. absent: Oriented x3 (oriented to time and place, not to person) Neuro motor strength exam: Left Upper Extremity: 5, Right Upper Extremity: 5, Left Lower Extremity: 5, Right Lower Extremity: 5 Additional comments: Patient moves all extremities independently; 5/5 bilaterally. Sensation equal and intact. No ataxia. Speech clear, fluid. Patient has periods of confusion and has some trouble following commands. - Psychiatric Exam Psychiatric exam: Normal Affect, Normal Mood Additional comments: confused - Skin Skin Exam: Normal Color Assessment and Plan - Assessment and Plan (Free Text) Assessment: Assessment/Plan: Mrs. Biswas is a 63 y/o female who was admitted for AMS, new onset seizure and hyponatremia. -New onset seizure most likely secondary to hyponatremia, which is being corrected (today Na is 129; yesterday it was 133). -Pending MRI brain for AMS and new seizure. -VEEG done and read as normal by Dr. Terry. -Hold off on any anti-epileptics until after MRI is done and resulted. -Continue to monitor and replace electrolytes as needed. -Nephro also on board. -Seizure precautions. -Please notify neuro team of any acute changes in patient's condition. Case discussed with Dr. Terry. Thank you for allowing us to participate n this patient's care.
[2018-05-19 17:37] LABS: BLOOD UREA NITROGEN 7 mg/dl (7-17); CALCIUM 7.6 mg/dL (8.4-10.2); GFR NON-AFRICAN AMERICAN > 60
[2018-05-20 05:21] LABS: HEMOGLOBIN 11.7 g/dL (12.0-16.0); MEAN CELL VOLUME 91.5 fl (81.0-99.0); MEAN CORPUSCULAR HEMOGLOBIN 30.9 pg (27.0-31.0); MEAN CORPUSCULAR HGB CONC 33.8 g/dL (33.0-37.0); RBC 3.79 Mil/uL (3.80-5.20); RED CELL DISTRIBUTION WIDTH 13.7 % (11.5-14.5); WHITE BLOOD COUNT 9.2 K/uL (4.8-10.8)
[2018-05-20 05:42] LABS: ALB/GLOB RATIO 1.1 (1.0-2.1); ALBUMIN 3.2 g/dL (3.5-5.0); ALT/SGPT 32 U/L (9-52); AST/SGOT 48 U/L (14-36); BLOOD UREA NITROGEN 13 mg/dl (7-17); GFR NON-AFRICAN AMERICAN > 60; HDL CHOLESTEROL 43 MG/DL (30-70); LDL CHOLESTEROL 94 mg/dL (0-129); URIC ACID 2.2 mg/Dl (2.2-7.5)
--- NOTE | 2018-05-20 06:01 | CON ---
DATE: 05/19/2018 LOCATION: Room# 433, ICU. HISTORY OF PRESENT ILLNESS: This is a 63-year-old female with sudden onset of agitation and confusion with supervening seizure event and was found to have profound hyponatremia upon admission and is now being referred for endocrine evaluation and management. She received hypertonic saline and IV sedation on admission and has since then been taken off the aforementioned. She is more responsive and alert at this time compared to the initial ER findings of confusion, disorientation, and extreme lethargy as noted. PAST MEDICAL HISTORY: History of type 2 diabetes, currently on Janumet taken as mg b.i.d.; history of hypertension and dyslipidemia; history of rheumatoid arthritis; history of carotid stenosis with a prior left carotid endarterectomy. She was also on a premixed insulin regimen with NovoLog 70/30 given at a variable dose twice a day before meals as ordered. FAMILY HISTORY: Positive for diabetes and hypertension. SOCIAL HISTORY: The patient lives alone, but takes care of her grandchildren at home. No known substance use at this time, but she has a previous history of smoking. REVIEW OF SYSTEMS: As mentioned above. Admits to generalized body weakness with episodic bouts of dizziness and lightheadedness, worse on the day of admission. Also admits to bifrontal headaches and suboptimal energy level with easy fatigability and tiredness and also disrupted sleep patterns as noted. PHYSICAL EXAMINATION: GENERAL: This is an average built female, in no apparent distress. VITAL SIGNS: Blood pressure 130/80, pulse 100 beats per minute and regular, temperature 99, respirations 20. Height is 5 feet 3 inches, weight is 168 pounds. HEENT: Head is normocephalic. Eyes, anicteric with pink conjunctivae. Funduscopy not possible at this time. Ears, nose and throat otherwise normal. NECK: Supple. Thyroid gland is normal in size. No carotid bruits or any cervical adenopathy. CARDIOPULMONARY: Some adynamic precordium. S1, S2 is rapid and regular. LUNGS: Clear to auscultation. ABDOMEN: Flat and soft with positive bowel sounds. EXTREMITIES: No peripheral edema. Pulses are +2 bilaterally. LABORATORY DATA: Initial chemistry showed a BUN of 11, sodium 122, potassium 3.3, chloride 82, CO2 20, glucose 273 and creatinine 0.4. Her glucose levels have ranged from 204 to 237 mg/dL. The latest glucose today is much lower at 79 to 102 mg/dL. ASSESSMENT: This is a 63-year-old female with altered mental status and supervening profound euvolemic hyponatremia, most commonly consistent with syndrome of inappropriate antidiuretic hormone, the etiology of which has to be ascertained at this time. She had an apparent seizure event, most likely related to the metabolic abnormality as mentioned. She also has a history of uncontrolled type 2 insulin-requiring diabetes, on a combination of insulin and oral hypoglycemic therapy as given, but the exact dosing is yet to be verified, with no recent home glucose monitoring levels undertaken. There is also a possibility of a metabolic component with symptomatic hypoglycemia causing this altered mental status besides the underlying profound hyponatremia. PLAN OF MANAGEMENT: We will continue the fingerstick glucose testing undertaken, but we will modify the coverage scale to obviate hypoglycemia, and detailed orders have been given. We will also hold off the resumption of any oral hypoglycemic therapy, no insulin therapy at this time and we will observe the glycemic fluctuations thereof and determine the need to resume the aforementioned as indicated. A hemoglobin A1c will confirm her prior glycemic control, and baseline thyroid function studies and serum cortisol and ACTH level will be obtained. We will obtain serial chemistries and supplement accordingly as needed. We will follow. Maria A Page MD
--- NOTE | 2018-05-20 07:40 | CP.PCM.PN ---
Subjective - Date & Time of Evaluation Date of Evaluation: 05/20/18 Time of Evaluation: 07:40 - Subjective Subjective: Patient seen and examined with Dr Mota at bedside, patient awake, alert and oriented, no overnight events, reports feeling better today, afebrile, VSS Objective - Vital Signs/Intake and Output Vital Signs (last 24 hours): Temp Pulse Resp BP Pulse Ox 98.2 F 81 21 139/33 L 100 05/20/18 04:00 05/20/18 06:00 05/20/18 06:00 05/20/18 06:00 05/20/18 06:00 Intake and Output: 05/20/18 05/20/18 06:59 18:59 Intake Total 3200 200 Balance 3200 200 - Medications Medications: Current Medications Enoxaparin Sodium (Lovenox) 40 mg SC DAILY [facility]; Protocol Last Admin: 05/19/18 08:22 Dose: 40 mg Sodium Chloride (Sodium Chloride 0.9%) 1,000 mls @ 100 mls/hr IV .Q10H [facility] Stop: 05/20/18 08:50 Last Admin: 05/19/18 12:20 Dose: 100 mls/hr Insulin Human Lispro (Humalog) 0 units SC ACHS [facility] Metformin HCl (Glucophage) 500 mg PO BIDWM [facility] Potassium Chloride (Potassium Chloride Oral Soln) 20 meq PO BID [facility] Stop: 05/20/18 09:01 Last Admin: 05/19/18 16:53 Dose: 20 meq Sitagliptin Phosphate (Januvia) 100 mg PO DAILY [facility] - Labs Labs: 05/20/18 04:30 05/20/18 04:30 PT 10.5 Seconds (9.8-13.1) 05/17/18 23:40 INR 0.9 05/17/18 23:40 APTT 27.1 Seconds (25.6-37.1) 05/17/18 23:40 - Constitutional Appears: No Acute Distress - Respiratory Exam Respiratory Exam: Clear to Ausculation Bilateral, NORMAL BREATHING PATTERN - Cardiovascular Exam Cardiovascular Exam: REGULAR RHYTHM - GI/Abdominal Exam GI & Abdominal Exam: Soft, Normal Bowel Sounds. absent: Distended, Tenderness - Extremities Exam Extremities Exam: absent: Calf Tenderness, Pedal Edema Additional comments: small wound ~0.5 round wound noted on medial aspect of R leg above ankle, dressing clean. - Neurological Exam Neurological Exam: Alert, Awake, Oriented x3 - Skin Skin Exam: Dry, Warm Additional comments: Hematoma noted on R arm medial aspect Assessment and Plan - Assessment and Plan (Free Text) Assessment: 63 y/o female admitted with AMS and hyponatremia. Plan: - afebrile, VSS - r/o seizure, metabolic encephalopathy - Head CT: negative for intracranial mass, hemorrhage or acute infarct, CVA r/o - VEEG: normal. no epileptiform discharges noted. no clinical or subclinical seizures. - f/u MRI - Neurology consult - Nephro consulted, - Na levels better today - Kypokalemia resolved - NS IV - f/u repeat labs in am - rest of plan as ordered - stable to transfer to regular floor
[2018-05-20] MEDS: Enoxaparin 40 mg Syringe SC SCH (08:30)
[2018-05-20] MEDS: Insulin Lispro (humaLOG) 100 Units/ml Inj SC SCH ×5 (09:30→22:34)
--- NOTE | 2018-05-20 10:25 | CP.CCUPN ---
<YonyZion - Last Filed: 05/20/18 13:50> CCU Subjective - Physician Review Subjective (Free Text): 05/20/18 10:09 63 y/o F was seen and examined by bedside. Pt is awake, alert, responsive, talkative in Danish. Pt reports feeling much better, complains she was not able to sleep last night, feels a bit tired and still does NOT remember what occurred before coming to hospital. Pt denies Hx of insomnia or depression. Pt denies chest pain, SOB, nausea or vomiting. Pt afebrile, tolerating PO with NO acute events overnight. Critical Care Time Spent (in minutes): 35 CCU Objective - Vital Signs / Intake & Output Vital Signs (Last 4 hours): Vital Signs Temp Pulse Resp BP Pulse Ox 05/20/18 08:00 98.3 F 71 15 134/49 L 95 Intake and Output (Last 8hrs): Intake & Output 05/19/18 05/20/18 05/20/18 22:59 06:59 14:59 Intake Total 1300 2800 440 Output Total 300 Balance 1000 2800 440 Intake: IV 1300 800 200 Oral 2000 240 Output: Urine 300 Urethral (Dong) 300 Other: # Voids Urethral (Dong) 1 Urine, Voided 1 1 1 # Bowel Movements 0 - Physical Exam Head: Positive for: Atraumatic, Normocephalic Pupils: Positive for: PERRL Mouth: Positive for: Moist Mucous Membranes Nose (External): Positive for: Atraumatic Neck: Positive for: Normal Range of Motion, Trachea Midline. Negative for: Meningeal Signs, JVD, Lymphadenopathy Respiratory/Chest: Positive for: Clear to Auscultation. Negative for: Respiratory Distress, Accessory Muscle Use, Wheezes, Decreased Breath Sounds, Rales Cardiovascular: Positive for: Regular Rate and Rhythm, Normal S1, S2 Abdomen: Positive for: Normal Bowel Sounds. Negative for: Tenderness, Distention, Rebound, Guarding Upper Extremity: Positive for: Normal Inspection. Negative for: Cyanosis, Edema Lower Extremity: Positive for: Normal Inspection. Negative for: Edema, CALF TENDERNESS Neurological: Positive for: CN II-XII Intact, Speech Normal Skin: Positive for: Warm, Dry Psychiatric: Positive for: Alert, Oriented x 3, Normal Insight, Normal Concentration, Normal Mood. Negative for: Anxious - Medications Active Medications: Active Medications Generic Name Dose Route Start Last Admin Trade Name Freq PRN Reason Stop Dose Admin Enoxaparin Sodium 40 mg 05/18/18 09:00 05/20/18 08:30 Lovenox SC 40 mg DAILY [facility] Administration Protocol Insulin Human Lispro 0 units 05/20/18 07:30 05/20/18 09:30 Humalog SC 3 u ACHS [facility] Administration Metformin HCl 500 mg 05/20/18 08:00 05/20/18 08:30 Glucophage PO 500 mg BIDWM [facility] Administration Sitagliptin Phosphate 100 mg 05/20/18 09:00 05/20/18 08:30 Januvia PO 100 mg DAILY [facility] Administration - Patient Studies Lab Studies: Microbiology Studies 05/18/18 17:37 MRSA Culture (Admit) - Final Naris MRSA NOT DETECTED 05/18/18 15:56 Urine Culture - Final Urine,Dong No Growth (<1,000 CFU/ML) Lab Studies 05/20/18 05/20/18 05/20/18 Range/Units 05:42 04:30 04:30 WBC 9.2 (4.8-10.8) K/uL RBC 3.79 L (3.80-5.20) Mil/uL Hgb 11.7 L (12.0-16.0) g/dL Hct 34.6 (34.0-47.0) % MCV 91.5 (81.0-99.0) fl MCH 30.9 (27.0-31.0) pg MCHC 33.8 (33.0-37.0) g/dL RDW 13.7 (11.5-14.5) % Plt Count 233 (130-400) K/uL Sodium 133 (132-148) mmol/l Potassium 4.6 (3.6-5.0) MMOL/L Chloride 105 (98-107) mmol/L Carbon Dioxide 22 (22-30) mmol/L Anion Gap 11 (10-20) BUN 13 (7-17) mg/dl Creatinine 0.5 L (0.7-1.2) mg/dl Est GFR ( Amer) > 60 Est GFR (Non-Af Amer) > 60 POC Glucose (mg/dL) 274 H (65-110) mg/dL Random Glucose 337 H (65-105) mg/dL Uric Acid 2.2 (2.2-7.5) mg/Dl Calcium 8.0 L (8.4-10.2) mg/dL Phosphorus 2.6 (2.5-4.5) mg/dl Magnesium 2.3 (1.6-2.3) MG/DL Total Bilirubin 0.6 (0.2-1.3) mg/dl AST 48 H (14-36) U/L ALT 32 (9-52) U/L Alkaline Phosphatase 93 (38-126) U/L Total Protein 6.2 L (6.3-8.2) G/DL Albumin 3.2 L (3.5-5.0) g/dL Globulin 3.0 (2.2-3.9) gm/dL Albumin/Globulin Ratio 1.1 (1.0-2.1) Triglycerides 221 H (0-149) mg/DL Cholesterol 144 (0-199) mg/dL LDL Cholesterol Direct 94 (0-129) mg/dL HDL Cholesterol 43 (30-70) MG/DL TSH 3rd Generation 4.07 (0.46-4.68) mIU/ML 05/19/18 05/19/18 05/19/18 Range/Units 21:18 16:29 16:03 WBC (4.8-10.8) K/uL RBC (3.80-5.20) Mil/uL Hgb (12.0-16.0) g/dL Hct (34.0-47.0) % MCV (81.0-99.0) fl MCH (27.0-31.0) pg MCHC (33.0-37.0) g/dL RDW (11.5-14.5) % Plt Count (130-400) K/uL Sodium 133 (132-148) mmol/l Potassium 4.2 (3.6-5.0) MMOL/L Chloride 104 (98-107) mmol/L Carbon Dioxide 22 (22-30) mmol/L Anion Gap 11 (10-20) BUN 7 (7-17) mg/dl Creatinine 0.4 L (0.7-1.2) mg/dl Est GFR ( Amer) > 60 Est GFR (Non-Af Amer) > 60 POC Glucose (mg/dL) 239 H 224 H (65-110) mg/dL Random Glucose 239 H (65-105) mg/dL Uric Acid (2.2-7.5) mg/Dl Calcium 7.6 L (8.4-10.2) mg/dL Phosphorus (2.5-4.5) mg/dl Magnesium (1.6-2.3) MG/DL Total Bilirubin (0.2-1.3) mg/dl AST (14-36) U/L ALT (9-52) U/L Alkaline Phosphatase (38-126) U/L Total Protein (6.3-8.2) G/DL Albumin (3.5-5.0) g/dL Globulin (2.2-3.9) gm/dL Albumin/Globulin Ratio (1.0-2.1) Triglycerides (0-149) mg/DL Cholesterol (0-199) mg/dL LDL Cholesterol Direct (0-129) mg/dL HDL Cholesterol (30-70) MG/DL TSH 3rd Generation (0.46-4.68) mIU/ML 05/19/18 Range/Units 11:25 WBC (4.8-10.8) K/uL RBC (3.80-5.20) Mil/uL Hgb (12.0-16.0) g/dL Hct (34.0-47.0) % MCV (81.0-99.0) fl MCH (27.0-31.0) pg MCHC (33.0-37.0) g/dL RDW (11.5-14.5) % Plt Count (130-400) K/uL Sodium (132-148) mmol/l Potassium (3.6-5.0) MMOL/L Chloride (98-107) mmol/L Carbon Dioxide (22-30) mmol/L Anion Gap (10-20) BUN (7-17) mg/dl Creatinine (0.7-1.2) mg/dl Est GFR ( Amer) Est GFR (Non-Af Amer) POC Glucose (mg/dL) 186 H (65-110) mg/dL Random Glucose (65-105) mg/dL Uric Acid (2.2-7.5) mg/Dl Calcium (8.4-10.2) mg/dL Phosphorus (2.5-4.5) mg/dl Magnesium (1.6-2.3) MG/DL Total Bilirubin (0.2-1.3) mg/dl AST (14-36) U/L ALT (9-52) U/L Alkaline Phosphatase (38-126) U/L Total Protein (6.3-8.2) G/DL Albumin (3.5-5.0) g/dL Globulin (2.2-3.9) gm/dL Albumin/Globulin Ratio (1.0-2.1) Triglycerides (0-149) mg/DL Cholesterol (0-199) mg/dL LDL Cholesterol Direct (0-129) mg/dL HDL Cholesterol (30-70) MG/DL TSH 3rd Generation (0.46-4.68) mIU/ML Laboratory Results - last 24 hr 05/19/18 05/19/18 05/19/18 11:25 16:03 16:29 WBC RBC Hgb Hct MCV MCH MCHC RDW Plt Count Sodium 133 Potassium 4.2 Chloride 104 Carbon Dioxide 22 Anion Gap 11 BUN 7 Creatinine 0.4 L Est GFR ( Amer) > 60 Est GFR (Non-Af Amer) > 60 POC Glucose (mg/dL) 186 H 224 H Random Glucose 239 H Uric Acid Calcium 7.6 L Phosphorus Magnesium Total Bilirubin AST ALT Alkaline Phosphatase Total Protein Albumin Globulin Albumin/Globulin Ratio Triglycerides Cholesterol LDL Cholesterol Direct HDL Cholesterol TSH 3rd Generation 05/19/18 05/20/18 05/20/18 21:18 04:30 04:30 WBC 9.2 RBC 3.79 L Hgb 11.7 L Hct 34.6 MCV 91.5 MCH 30.9 MCHC 33.8 RDW 13.7 Plt Count 233 Sodium 133 Potassium 4.6 Chloride 105 Carbon Dioxide 22 Anion Gap 11 BUN 13 Creatinine 0.5 L Est GFR ( Amer) > 60 Est GFR (Non-Af Amer) > 60 POC Glucose (mg/dL) 239 H Random Glucose 337 H Uric Acid 2.2 Calcium 8.0 L Phosphorus 2.6 Magnesium 2.3 Total Bilirubin 0.6 AST 48 H ALT 32 Alkaline Phosphatase 93 Total Protein 6.2 L Albumin 3.2 L Globulin 3.0 Albumin/Globulin Ratio 1.1 Triglycerides 221 H Cholesterol 144 LDL Cholesterol Direct 94 HDL Cholesterol 43 TSH 3rd Generation 4.07 05/20/18 05:42 WBC RBC Hgb Hct MCV MCH MCHC RDW Plt Count Sodium Potassium Chloride Carbon Dioxide Anion Gap BUN Creatinine Est GFR ( Amer) Est GFR (Non-Af Amer) POC Glucose (mg/dL) 274 H Random Glucose Uric Acid Calcium Phosphorus Magnesium Total Bilirubin AST ALT Alkaline Phosphatase Total Protein Albumin Globulin Albumin/Globulin Ratio Triglycerides Cholesterol LDL Cholesterol Direct HDL Cholesterol TSH 3rd Generation Fingerstick Blood Sugar Results: 274 Review of Systems - Constitutional Constitutional: absent: Fever, Chills, Sweats - EENT Eyes: UNREMARKABLE Ears: UNREMARKABLE Nose/Mouth/Throat: absent: Nasal Congestion, Sore Throat, Neck Pain, Neck Mass - Cardiovascular Cardiovascular: UNREMARKABLE - Respiratory Respiratory: UNREMARKABLE - Gastrointestinal Gastrointestinal: UNREMARKABLE - Genitourinary Genitourinary: UNREMARKABLE Critical Care Progress Note - Nutrition Nutrition: Nutrition Category Date Time Status Consistent Carbohydrate [DIET] Diets 05/19/18 Lunch Active Assessment/Plan - Assessment and Plan (Free Text) Assessment: 63 y/o f with a PMHx of DM 2, HTN and HLD admitted to ICU due to altered mental status, hyponatremia and electrolyte imbalance. --Awake, stable vital signs, will be transferred to Med-Surg floor PLAN: 1. Metabolic encephalopathy --Resolved --Awake and alert, tolerating PO --CT Head and EEG was unremarkable. --Neurology on board, Nikolai Terry. --F/U electrolytes levels. --Monitor mental status. 2. Hyponatremia --Resolved --Nephrology on board, Dr Jc. --Endocrinology consult, Dr Page --BMP unremarkable, lipid panel only shows hypertriglyceredemia. --F/U BMP tomorrow 3. Hypokalemia --Stable --Magnessium and Potassium serum level-WNL --Endocrinology consult, Dr Page --F/U BMP this afternoon. 4. Hypophosphatemia --Resolved 5. DM2 --Insulin sliding scale --Endocrinology consult, Dr Page. --Continue management as per heat curer. 6. Prophylaxis --Lovenox for DVT prophylaxis --> Continue management as per primary medical team. Case discussed with Dr Stevenson Montoya PGY-2 - Date & Time Date: 05/20/18 Time: 10:00 <Chucho Gamino - Last Filed: 05/20/18 16:18> CCU Subjective - Physician Review Subjective (Free Text): Attestation: Patient seen and examined at the bedside with Resident Dr. Nilesh Bhakta; and I agree with his outline of plans and management documented above and below, reflecting my review of all applicable clinical data, and participation in the care of the patient throughout the day in ICU; today, May 20, 2018.
--- NOTE | 2018-05-20 11:10 | PN ---
DATE: 05/20/2018 SUBJECTIVE: The patient seen and examined. Interim events noted. Consults noted and appreciated. Manufacturing Quality Inspector intervention noted and appreciated. The patient remains in intensive care unit, much more awake, responsive, conversant. Feels okay. Denies any specific complaint. No chest pain. No shortness of breath. PHYSICAL EXAMINATION: GENERAL: The patient is in no acute distress. VITAL SIGNS: Stable. HEART: S1 and S2, normal, regular. LUNGS: Good bilateral air exchange. ABDOMEN: Soft, nontender. EXTREMITIES: No edema. No calf swelling. No tenderness. No acute ischemia. CENTRAL NERVOUS SYSTEM: Essentially unchanged and the patient is much improved since admission. DIAGNOSTIC DATA: Available diagnostic data reviewed. Sodium level is 130 . No significant arrhythmias. ASSESSMENT AND PLAN: Overall, the patient is clinically much improved. Plan as ordered. Nicolas Mota MD
[2018-05-20] MEDS ORDERED: Gadodiamide 287 MG/ML VIAL (15ML) IV ONE (13:29)
--- NOTE | 2018-05-20 14:30 | MRI ---
Date of service: 05/20/2018 PROCEDURE: MRI BRAIN WITH AND WITHOUT CONTRAST HISTORY: Altered mental status COMPARISON: Comparison is made to the previous CT dated 05/18/2018. No prior MRI of the brain available for comparison. TECHNIQUE: Multiplanar, multisequence MR images of the brain were obtained with and without intravenous contrast enhancement. FINDINGS: HEMORRHAGE: None DWI: No evidence of an acute or early subacute infarction. BRAIN PARENCHYMA: No mass,mass effect or edema. Mild volume loss is noted. No evidence of significant white matter chronic micro vascular ischemic changes. Symmetrical foci of dystrophic calcification in the basal ganglia noted. ENHANCEMENT: No abnormal intracranial enhancement. VENTRICLES: Unremarkable. No hydrocephalus. CRANIUM: Unremarkable. ORBITS: Grossly unremarkable. PARANASAL SINUSES/MASTOIDS: Mild mucosal thickening noted in the left maxillary and ethmoid sinuses. VASCULAR SYSTEM: Skull base flow voids intact. OTHER FINDINGS: None . IMPRESSION: No evidence of acute pathology in the brain. No evidence of enhancing mass lesion mass effect or midline shift. Mild volume loss.
--- NOTE | 2018-05-20 14:54 | CP.PCM.PN ---
<Madelyn Crowley - Last Filed: 05/20/18 16:18> Subjective - Date & Time of Evaluation Date of Evaluation: 05/20/18 Time of Evaluation: 14:52 - Subjective Subjective: Neurology Consultation Follow-Up Note: Mrs. Biswas was evaluated in the ICU this afternoon. She is still being monitored and treated for AMS, hyponatremia, and new onset seizure. Periods of confusion and agitation have resolved. She still cannot recall why she was brought to the hospital and is upset that she has this memory lapse. Currently, she denies headache, dizziness, visual changes, chest pain, shortness of breath, nausea/vomiting , paresthesias, unsteadiness, seizure activity. Chart reviewed. Objective - Vital Signs/Intake and Output Vital Signs (last 24 hours): Temp Pulse Resp BP Pulse Ox 98.5 F 81 17 108/56 L 95 05/20/18 12:00 05/20/18 12:00 05/20/18 12:00 05/20/18 12:00 05/20/18 12:00 Intake and Output: 05/20/18 05/20/18 06:59 18:59 Intake Total 3200 440 Balance 3200 440 - Medications Medications: Current Medications Enoxaparin Sodium (Lovenox) 40 mg SC DAILY [facility]; Protocol Last Admin: 05/20/18 08:30 Dose: 40 mg Insulin Detemir (Levemir) 20 units SC HS [facility] Insulin Human Lispro (Humalog) 0 units SC ACHS [facility] Last Admin: 05/20/18 12:32 Dose: 4 u Insulin Human Lispro (Humalog) 10 units SC AC [facility] Metformin HCl (Glucophage) 500 mg PO BIDWM [facility] Last Admin: 05/20/18 08:30 Dose: 500 mg Sitagliptin Phosphate (Januvia) 100 mg PO DAILY [facility] Last Admin: 05/20/18 08:30 Dose: 100 mg - Labs Labs: 05/20/18 04:30 05/20/18 04:30 PT 10.5 Seconds (9.8-13.1) 05/17/18 23:40 INR 0.9 05/17/18 23:40 APTT 27.1 Seconds (25.6-37.1) 05/17/18 23:40 - Constitutional Appears: Well, Non-toxic, No Acute Distress - Head Exam Head Exam: ATRAUMATIC, NORMAL INSPECTION, NORMOCEPHALIC - Eye Exam Eye Exam: EOMI, Normal appearance, PERRL Pupil Exam: NORMAL ACCOMODATION, PERRL - ENT Exam ENT Exam: Mucous Membranes Moist - Neck Exam Neck Exam: Full ROM - Respiratory Exam Respiratory Exam: NORMAL BREATHING PATTERN - Extremities Exam Extremities Exam: Full ROM, Normal Inspection - Neurological Exam Neurological Exam: Alert, Awake, CN II-XII Intact, Oriented x3, Reflexes Normal Neuro motor strength exam: Left Upper Extremity: 5, Right Upper Extremity: 5, Left Lower Extremity: 5, Right Lower Extremity: 5 Additional comments: Patient moves all extremities independently; 5/5 BLE and BUE. Sensation equal and intact. No ataxia, no dysmetria. Fine motor grossly intact. Speech clear, fluid. AAOx3 - Psychiatric Exam Psychiatric exam: Normal Affect, Normal Mood - Skin Skin Exam: Normal Color Assessment and Plan - Assessment and Plan (Free Text) Assessment: Mrs. Biswas is a 63 y/o female who was admitted for AMS, new onset seizure and hyponatremia. Imaging: -MRI Brain (05/20/18): No evidence of acute pathology in the brain. No evidence of enhancing mass lesion mass effect or midline shift. Mild volume loss. -CT Head without contrast (05/18/18): Normal CT of the Head. No intracranial m ass, hemorrhage or evidence of acute infarct. -AMS and new onset seizure likely secondary to electrolyte imbalance and hyponatremia. -Imaging is unremarkable. -VEEG read by Dr. Terry is also unremarkable. -We do not recommend any anti-epileptics since VEEG and MRI brain are unremarkable. Symptoms and patient presentation seem to have improved greatly with the replacement of electrolytes. -Continue to monitor and replace electrolytes as needed. -Nephro also on board. -Seizure precautions. -Fall precautions. -Please notify neuro team of any acute changes in patient's condition. At this time we will sign off. Please feel free to reconsult neuro prn. Case discussed with Dr. Terry. Thank you for allowing us to participate n this patient's care. <Elyse Terry - Last Filed: 05/20/18 23:42> Objective - Vital Signs/Intake and Output Vital Signs (last 24 hours): Temp Pulse Resp BP Pulse Ox 98.4 F 72 18 129/73 100 05/20/18 16:30 05/20/18 16:30 05/20/18 16:30 05/20/18 16:30 05/20/18 16:30 Intake and Output: 05/20/18 05/21/18 18:59 06:59 Intake Total 640 Balance 640 - Medications Medications: Current Medications Enoxaparin Sodium (Lovenox) 40 mg SC DAILY [facility]; Protocol Last Admin: 05/20/18 08:30 Dose: 40 mg Insulin Detemir (Levemir) 20 units SC HS [facility] Last Admin: 05/20/18 22:32 Dose: 20 units Insulin Human Lispro (Humalog) 0 units SC ACHS [facility] Last Admin: 05/20/18 22:34 Dose: Not Given Insulin Human Lispro (Humalog) 10 units SC AC [facility] Last Admin: 05/20/18 17:11 Dose: 10 units Metformin HCl (Glucophage) 500 mg PO BIDWM [facility] Last Admin: 05/20/18 17:09 Dose: 500 mg Sitagliptin Phosphate (Januvia) 100 mg PO DAILY [facility] Last Admin: 05/20/18 08:30 Dose: 100 mg - Labs Labs: 05/20/18 04:30 05/20/18 04:30 PT 10.5 Seconds (9.8-13.1) 05/17/18 23:40 INR 0.9 05/17/18 23:40 APTT 27.1 Seconds (25.6-37.1) 05/17/18 23:40 Assessment and Plan - Assessment and Plan (Free Text) Plan: Agree with assessment and plan as above. Thank you farida Meza Neurology
--- NOTE | 2018-05-20 19:30 | CP.PCM.PN ---
Subjective - Date & Time of Evaluation Date of Evaluation: 05/20/18 Time of Evaluation: 14:00 - Subjective Subjective: SEEN ON RENAL F/U IN ICU FULLY A & O .. 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; Protocol Last Admin: 05/20/18 08:30 Dose: 40 mg Insulin Detemir (Levemir) 20 units SC HS [facility] Insulin Human Lispro (Humalog) [address] [facility] Last Admin: 05/20/18 17:10 Dose: 3 u Insulin Human Lispro (Humalog) [address] [facility] Last Admin: 05/20/18 17:11 Dose: 10 units Metformin HCl (Glucophage) [address] [facility] Last Admin: 05/20/18 17:09 Dose: 500 mg Sitagliptin Phosphate (Januvia) [address] [facility] Last Admin: 05/20/18 08:30 Dose: 100 mg - Labs Labs: 05/20/18 04:30 05/20/18 04:30 PT 10.5 Seconds (9.8-13.1) 05/17/18 23:40 INR 0.9 05/17/18 23:40 APTT 27.1 Seconds (25.6-37.1) 05/17/18 23:40 Assessment and Plan - Assessment and Plan (Free Text) Assessment: HYPO NATREMIA .. MOST C/W SIADH .. NEEDS FR ELECTROLYTES ABN : HYPOKALEMIA , HYPOMAGNESEMIA AND HYPO PHOSPHATEMIA .. ALL GOOD DM .. UNCONTROLED HTN ' S/P SIESURE P : C/O FR 1.5 L /D C/O PRESENT CARE C/O CURRENT MEDS
[2018-05-20] MEDS ORDERED: Insulin Detemir 100 Units/ml Inj SC SCH (22:00)
[2018-05-21 06:00] LABS: HEMOGLOBIN 11.5 g/dL (12.0-16.0); MEAN CORPUSCULAR HEMOGLOBIN 30.7 pg (27.0-31.0); RBC 3.76 Mil/uL (3.80-5.20); RED CELL DISTRIBUTION WIDTH 13.5 % (11.5-14.5)
[2018-05-21 06:23] LABS: ALBUMIN 3.2 g/dL (3.5-5.0); ALT/SGPT 40 U/L (9-52); AST/SGOT 66 U/L (14-36); BLOOD UREA NITROGEN 11 mg/dl (7-17); CALCIUM 8.8 mg/dL (8.4-10.2); GFR NON-AFRICAN AMERICAN > 60
--- NOTE | 2018-05-21 07:21 | PN ---
LOCATION: Room 433, ICU. SUBJECTIVE: This is a 63-year-old female admitted with altered mental status and agitation with supervening profile hyponatremia, indicative of the so-called SIADH, the exact etiology of which has to be ascertained at this time. Her glycemic levels are also fluctuating as noted overnight with glucose levels ranging from 239 to 274 and 326 mg/dL. LABORATORY DATA: Her latest chemistries showed a BUN of 13, sodium 133, potassium 4.6, chloride 105, CO2 of 22, glucose 337, and creatinine 0.5. ASSESSMENT: This is a 63-year-old female with uncontrolled and decompensated type 2 insulin-requiring diabetes clearly with recent marked hyperglycemic accelerations who presented here with altered mental status related to profound hyponatremia, which is improving clinically and metabolically as noted thereof. PLAN OF MANAGEMENT: We will add the basal and bolus insulin drug combination to optimize the metabolic control accordingly and we will add Levemir at 20 units subcutaneous at bedtime daily to start tonight. We will add NovoLog given as 8 units t.i.d. before meals to start at dinnertime today as ordered. We will modify the coverage scale to obviate hypoglycemia and detailed orders have been given. We will also continue the low-dose correction scale using Humalog insulin as ordered. We will continue the dual oral hypoglycemic therapy as she was taking actually Janumet at home and we will give her the equivalent doses of Januvia at 100 mg daily and metformin at 500 mg b.i.d. with meals as ordered. We will obtain serial chemistries and supplement accordingly as needed. We will follow. Maria A Page MD
[2018-05-21] MEDS: Insulin Lispro (humaLOG) 100 Units/ml Inj SC SCH ×4 (09:04→14:02)
[2018-05-21] MEDS: Enoxaparin 40 mg Syringe SC SCH (09:07)
--- NOTE | 2018-05-21 12:09 | PN ---
DATE: 05/21/2018 SUBJECTIVE: The patient seen and examined. Interim events noted. Consults noted and appreciated. The patient is now on the general medical floor. Nephrology, Neurology, Cylinder Filler interventions noted and appreciated. The patient feels much better. No chest pain. No shortness of breath. No dizziness. No loss of consciousness. PHYSICAL EXAMINATION: GENERAL: The patient is in no acute distress. VITAL SIGNS: Stable. HEART: S1 and S2 normal and regular. LUNGS: Good bilateral air exchange. ABDOMEN: Soft and nontender. No organomegaly. Bowel sounds are plus and normal. EXTREMITIES: No edema. No calf swelling. No tenderness. No acute ischemia. CENTRAL NERVOUS SYSTEM: Essentially unchanged. DIAGNOSTIC DATA: Available diagnostic data reviewed. MRI of the brain does not reveal significant events. ASSESSMENT AND PLAN: Overall, the patient is medically stable. Plan as ordered. Nicolas Mota MD
[2018-05-21 16:14] VITALS: BP 157/76; PULSE 76; RESP 18; TEMP 98
[2018-05-21] MEDS ORDERED: Insulin Lispro (humaLOG) 100 Units/ml Inj SC SCH (16:30)
--- NOTE | 2018-05-21 18:34 | PN ---
DATE: 05/21/2018 ENDOCRINOLOGY FOLLOWUP NOTE LOCATION: In room 652. SUBJECTIVE: This is a 63-year-old female with recent uncontrolled type 2 insulin-requiring diabetes, presenting here with marked hyperglycemic accelerations and is now being followed closely for metabolic management. She also had profound hyponatremia with altered mental status on admission as noted and is now improved biochemically and hemodynamically thereof. LABORATORY DATA: Her latest chemistry showed a BUN of 11, sodium 137, potassium 4.1, chloride 106, CO2 of 25, glucose 202, and creatinine 0.4. Her glucose levels have ranged from 221 to 239 mg/dL and it was 235 at bedtime last night. ASSESSMENT AND PLAN: So at this time, we will modify once again her basal and bolus insulin regimen to optimize metabolic control. We will increase the Levemir to 24 units subcutaneously at bedtime daily to start tonight. We will also continue the low-dose correction scale using Humalog insulin to obviate hypoglycemia and detailed orders have been given. Moreover, we will titrate her prandial insulin with Humalog to be given as 12 units subcutaneously t.i.d. before meals to start at dinnertime today as ordered. We will obtain serial chemistries and supplement accordingly as needed. We will follow and advise accordingly. Maria A Page MD
[2018-05-21] MEDS ORDERED: Insulin Detemir 100 Units/ml Inj SC SCH (22:00)
[2018-05-24 15:00] VITALS: O2SAT 98
== END 2018-05-21 16:29 | disposition home or self-care (01) | DRG 643 ==
LOC: H.ER 23:08 → H.ERHOLD 05-18 03:12 → H.ICU/CCU 05-18 07:56 → H.MEDSURG1 05-20 16:00
PROVIDERS: ADMIT Internal Medicine; ATTEND Internal Medicine
PROC: 3E02340 Introduction of Influenza Vaccine into Muscle, Percutaneous Approach (ICD-10-PCS; principal; 2018-05-19)
PROC: 3E0234Z Introduction of Serum, Toxoid and Vaccine into Muscle, Percutaneous Approach (ICD-10-PCS; 2018-05-19)
DX: E22.2 Syndrome of inappropriate secretion of antidiuretic hormone (principal); G93.41 Metabolic encephalopathy; E83.42 Hypomagnesemia; E87.6 Hypokalemia; E11.65 Type 2 diabetes mellitus with hyperglycemia; E83.39 Other disorders of phosphorus metabolism; G40.909 Epilepsy, unspecified, not intractable, without status epilepticus; M06.9 Rheumatoid arthritis, unspecified; I10 Essential (primary) hypertension; E78.00 Pure hypercholesterolemia, unspecified; E78.5 Hyperlipidemia, unspecified; Z23 Encounter for immunization; Z87.891 Personal history of nicotine dependence; Z79.4 Long term (current) use of insulin; Z79.84 Long term (current) use of oral hypoglycemic drugs; Z79.82 Long term (current) use of aspirin